=== PATIENT | female | born 1940 | race Caucasian/White ===

== ENCOUNTER → 2017-11-14 11:13 | Outpatient (CLI) | payer MEDICARE, SELFPAY ==
[2017-11-14 12:19] LABS: Absolute Lymphocyte Count 2.37 X10^3/ul (0.83-4.51); Absolute Neutrophil Count 3.5 X10^3/uL (2.0-7.7); Basophil# 0.02 X10^3/uL; Basophil% 0.3 % (0-1); Eosinophil# 0.11 X10^3/uL; Eosinophils% 1.7 % (0-5); Hematocrit 39.5 % (37-47); Hemoglobin 12.8 g/dl (12.0-15.0); Lymphocyte # 2.37 X10^3/ul (4.0); Lymphocyte % 36.9 % (19-41); Mean Corp Hgb Conc 32.4 g/gl (32-36); Mean Corpuscular Hgb 30.1 pg (27.0-32.0); Mean Corpuscular Volume 92.9 fL (81-99); Mean Platelet Vol. 9.6 fl (6.2-12.0); Monocyte# 0.39 X10^3/uL; Monocyte% 6.1 % (0-10); Neutrophil # 3.52 X10^3/uL (2.7-7.7); Neutrophil % 54.8 % (47-70); Platelet Count 208 K/mm3 (150-450); RBC Distribution Width CV 13.3 % (11.6-14.6); RBC Distribution Width SD 44.8 fl (35.1-43.9); Red Blood Count 4.25 M/mm3 (4.2-5.4); White Blood Count 6.4 K/mm3 (4.4-11.0)
[2017-11-14 12:26] LABS: POSITIVE COUNT NO; POSITIVE DIFFERENTIAL NO; POSITIVE MORPHOLOGY NO
[2017-11-19 03:08] LABS: Alternaria tenuis <0.10 kU/L (Class 0); Ash, White <0.10 kU/L (Class 0); Aspergillus fumigatus <0.10 kU/L (Class 0); Bermuda Grass <0.10 kU/L (Class 0); Birch <0.10 kU/L (Class 0); Black Walnut <0.10 kU/L (Class 0); Cat Hair / Dander,Stand <0.10 kU/L (Class 0); Cedar, Mountain <0.10 kU/L (Class 0); Cladosporium herbarum <0.10 kU/L (Class 0); Cockroach, American <0.10 kU/L (Class 0); Cottonwood <0.10 kU/L (Class 0); D farinae Mite <0.10 kU/L (Class 0); D pteronyssinus <0.10 kU/L (Class 0); Dog Epithelia <0.10 kU/L (Class 0); Elm, American White <0.10 kU/L (Class 0); Immunoglobulin E 57 IU/mL (0-100); Maple/Box Elder <0.10 kU/L (Class 0); Mulberry, White <0.10 kU/L (Class 0); Oak, White <0.10 kU/L (Class 0); Pecan <0.10 kU/L (Class 0); Penicillium Notatum <0.10 kU/L (Class 0); Pigweed, Rough <0.10 kU/L (Class 0); Ragweed, Short/Common <0.10 kU/L (Class 0); Russian Thistle <0.10 kU/L (Class 0); Sheep Sorrel <0.10 kU/L (Class 0); Sycamore, American <0.10 kU/L (Class 0); Timothy Grass <0.10 kU/L (Class 0)
[2017-11-19 10:15] LABS: Mouse Urine <0.10 kU/L (Class 0)
== END ==
PROVIDERS: Visit Provider Internal Medicine Critical Care Medicine
DX: J31.0 Chronic rhinitis (principal); J45.909 Unspecified asthma, uncomplicated; Z90.710 Acquired absence of both cervix and uterus
CPT/HCPCS: 36415; 82785; 85025; 86003

== ENCOUNTER → 2017-12-05 10:45 | Outpatient (CLI) | payer MEDICARE, SELFPAY ==
--- NOTE | 2017-12-05 10:45 | DT_ITS ---
This patient was seen during an EMR downtime December 01, 2017 - December 08, 2017. This patient may have a combination of paper and electronic documentation or all paper documentation. All documentation is viewable within the e-chart portion of [facility] for each patient visit.
[2017-12-05 12:18] VITALS: PULSE 74; PULSE 84; PULSE 92; PULSE 95; PULSE 97; O2SAT 97; O2SAT 98
--- NOTE | 2017-12-08 12:05 | PCM.PSN.6M ---
PSN 6 Minute Walk Test - Interpretation Interpretation: The patient ambulated 1062 feet over the course of 6 minutes beginning on room air without assistive devices or breaks. Pretesting oxygen saturation was noted to be 97% on room air. With ambulation, the lay oxygen saturation was 97%. There was no significant exertional oxygen desaturation. - Recommendations Recommendations: There is no indication for the use of supplemental oxygen at this time.
--- NOTE | 2017-12-08 12:20 | CPS ---
Testing done by Radha Cedeño [employer]
== END ==
PROVIDERS: Family Provider Internal Medicine Infectious Disease; PCP Internal Medicine Infectious Disease; Visit Provider Internal Medicine Critical Care Medicine
DX: R05 Cough (principal); J31.0 Chronic rhinitis
CPT/HCPCS: 94618

== ENCOUNTER → 2017-12-23 10:06 | Outpatient (CLI) | payer MEDICARE, SELFPAY ==
--- NOTE | 2017-12-24 05:46 | PFTCOMP ---
COMPLETE PULMONARY FUNCTION TEST INTERPRETATION Brief HPI: Patient is a 77 year old female, currently under the care of Dr. Liang, who presents to [facility] for complete pulmonary function tests secondary to diagnosis of dyspnea and cough. Respiratory therapist reports good effort and reproducible results. Interpretation: Forced expiration spirometry shows no large airways obstructive ventilatory defect with an FEV1 of 106% predicted. There is no significant bronchodilator response by ATS criteria. Spirograms are of good quality and plateau slowly, indicating slowly emptying areas of the lungs. The respiratory flow volume loop shows decreased expiratory flow rates at high lung volumes consistent with small airways obstruction. Lung volumes by body plethysmography show a normal total lung capacity at 4.7 L, 108% predicted. All other lung volumes are within normal limits. Diffusion capacity by carbon monoxide is normal at 83% predicted. The airway resistance is normal. No previous pulmonary function tests were available for review. Impression: These pulmonary function tests are grossly within normal limits. There are some subtle signs of possible small airways disease.
== END ==
PROVIDERS: Family Provider Internal Medicine Infectious Disease; PCP Internal Medicine Infectious Disease; Visit Provider Internal Medicine Critical Care Medicine
DX: J31.0 Chronic rhinitis (principal); R05 Cough
CPT/HCPCS: 94060; 94726; 94729

== ENCOUNTER 2019-03-26 13:30 | Outpatient (RCR) | payer MEDICARE, SELFPAY ==
[2018-10-26 11:12] VITALS: BMI 33.5
--- NOTE | 2019-01-28 11:59 | HP.PTEVAL ---
Patient's Visit Information JULIO SAEED is a 78 year old F referred to Physical Therapy by Davi Haines MD with a diagnosis of Unsteadiness on feet.. Date of Evaluation: 01/28/19 Physical Therapist: Jesus Manuel Saleem DPT, OCS, CSCS - Visit Plan Frequency: 2x /Week Duration: 4-6 Weeks Plan: Neurocom balance assessment per order then. 2x/week for 4-6 weeks for. balance ex likely vestibular in nature and strengthening in gym for patient exit strategy of working out at [employer] where she is a member. Focus on postural , core adn LE musculature. - Subjective Findings: Yancy sent her here because she is having trouble walking straight and standing up safely. People think I have been drinking and I have not. Been this way for years. 4 years ago had gallbladder out and complications in clinic for a long time and confined home since then. Is weak and off balance. Had heartmonitor in the past year and changed meds. Went to [facility] for unsteadiness. Doesn't know why she is unsteady. Had blood work adn BP and sugar. WEnt to ER at that time months ago adn they sent to neuro. BP meds were too high. Last few days has been a little dizzy described as unsteady and sometimes sick to stomach. Had a couple falls in the last year. Usually if she turns too quick. Or walking dog. Has cane and just started with it in case she needs it. Has walker and does not use it. Has some tingly in feet and hands from DM. Spends day sitting as she is very weak. Can go outside for ten minutes but than feels tired. Curling hair makes arms tired. No regular ex. Basic ADLS are slow but OK. Spends day on ipad and TV. No active hobbies. - Pain whole body aches for years. Pain Intensity (Out of 10): 4 Pain Intensity Range: 0, 8 - Objective Walks without AD I but slow today, tends slightly posterior in stance. trasnfers I. Steps reciprocal with one rail. Shows weakness exitting chair. LE strength 4-/5 adn UE 3+ without myotomal problems. reflexes patella and achilles 2/3. Sensation LE and UE WNL to gross light touch. Reciprocal toe and heel taps normal. Flexibility not an issue in LE and LB AROM WFL withotu increased pain today. UE AROM WNL but needs encouragement to reach up . VOR walking is slow but able. - Balance Scores Functional Gait Assessment Score: 23 % Disability: 23.3400 CATSIB Score (Max score 120 seconds): 93 - Goals Goal 1:: Pt I with appropriate HEP to help balance and improve future activities. Goal Time Frame: 4-6 Weeks Goal 2:: FGA to minimize fall risk. Goal Time Frame: 4-6 Weeks Goal 3:: Pt feel 50% increase in energy and able to walk out to barn an pet horse and back to house without fatigue. Goal Time Frame: 4-6 Weeks Goal 4:: Pt able to complete vaccuming without excessive fatigue. Goal Time Frame: 4-6 Weeks - Rehabilitation Potential Physical Therapy Diagnosis: Unsteadiness on feet Rehabilitation Potential: Fair - Anticipated Interventions Patient/Client Instruction: Educate patient on: Condition, Plan of Care, Risk Factors For the Purpose of:: To improve muscle performance and motor function, To increase tolerance to activity/condition/position, To improve endurance Therapeutic Exercise to Include: Strength training, Balance training, Postural training, Gait and locomotor training, via Neurocom Balance Mas For the Purpose of:: To decrease pain, To improve nutrient delivery to tissue, To improve muscle performance and motor function, To increase tolerance to activity/condition/position, To improve ability of physical actions for home/community/work/leisure, To improve balance, To improve safety with gait Thank you for the opportunity to evaluate your patient. For Medicare and Medicare HMO plans, please review the plan of care and approve it. It will need to be FAXED BACK to us at [phone] for Medicare purposes. For Medicare only, by signing this I certify the plan of care. Please let me know if there are questions or concerns regarding this plan of care. Physician Signature: Date:
--- NOTE | 2019-02-11 12:51 | HP.PTCOM ---
PT Communication Note 02/11/[address] Davi Haines MD , Thank you for the referral of Ela to [facility] for balance assessment and treatment. I have enclosed a copy of the results for your review. In summation, she scored slow on the Motor Control Test conssitent with her neuropathy. She scored low on the vestibular portion of the Sensory Organization Test. Regrettably, due to machine failure, I was unable to perform the Limits of Stability test on this date. With these results in mind, I plan to see her 2x/week for 4-6 weeks as allowed by insurance to work on strength and balance exercises adn progress to an independent program. Please do not hesitate to call if there are questions. Sincerely, Jesus Manuel Saleem DPT, OCS, CSCS Contact Information
--- NOTE | 2019-03-05 15:28 | HP.PTREVAL ---
Davi Haines MD, It has been my pleasure to treat JULIO SAEED over the last 7 visits for Unsteadiness on feet.. Please see the progress note below for an update on the physical therapy plan of care! Subjective: Feel better. Stronger and steadier. Turning quick can make feel unsteady but otherwise doing well. No AD needed. No falls. Doing exercises at home at the sink. Vacuuming in spurts but not all at once. Objective/Function: FGA is +3. Trasnfers I with UE. Steps reciprocal with rail needed to descend but not ascend. Balacne appears better adn walks confidently on firm flat surface. Not confident or comfortable yet to cotninue gym ex on her own but has the ability to learn this with further visits. Plan Plan: 2x/week x 4 weeks to progress gym program to I [facility] [employer] program for LE strength, postural strength and balance. Fair prognosis to current adn new goals. Goals Goal 1:: Pt I with appropriate HEP to help balance and improve future activities. Goal Time Frame: 4-6 Weeks Goal Progress: home, not gym Goal 2:: FGA to minimize fall risk. Goal Time Frame: 4-6 Weeks Goal Progress: Goal Met Goal 3:: Pt feel 50% increase in energy and able to walk out to barn an pet horse and back to house without fatigue. Goal Time Frame: 4-6 Weeks Goal Progress: 50% but not horses, appro Goal 4:: Pt able to complete vaccuming without excessive fatigue. Goal Time Frame: 4-6 Weeks Goal Progress: spurts Goal 5:: I appropriate gym program to cotninue progress toward goals and barn activities. Goal Time Frame: 2-4 Weeks Goal Progress: NEW GOAL Anticipated Interventions Patient/Client Instruction: Educate patient on: Condition, Plan of Care, Risk Factors For the Purpose of:: To improve muscle performance and motor function, To increase tolerance to activity/condition/position, To improve endurance Therapeutic Exercise to Include: Strength training, Balance training, Postural training, Gait and locomotor training, via Neurocom Balance Mas For the Purpose of:: To decrease pain, To improve nutrient delivery to tissue, To improve muscle performance and motor function, To increase tolerance to activity/condition/position, To improve ability of physical actions for home/community/work/leisure, To improve balance, To improve safety with gait Please do not hesitate to contact me at [phone] by phone or if you have questions or concerns regarding this new plan of care! Sincerely, Jesus Manuel Saleem, DPT, OCS, CSCS
--- NOTE | 2019-03-26 14:18 | HP.PTREVAL_ITS ---
Davi Haines MD, It has been my pleasure to treat JULIO SAEED over the last 10 visits for Unsteadiness on feet.. Please see the progress note below for an update on the physical therapy plan of care! Subjective: i CAN DO MORE I have good days and bad but feelign stronger overall. back on [employer] which makes her sore. Not sure she could continue herself, feels like she needs more instruction for I with machines, would like to continue to get I with this. Feels like she just needs to be stronger. Objective/Function: Pt has been noncompliant with HEp except steps. Despite this, her hard work has shown a decent improvement to above average in the FGA balance test. She is functional in strength to step up and get out of chair without UE. Needs work to progress back to her usual level which waas above normal according to her. She needs consisteny with ex and wwe decided driving out to all winter is not realistic, she will take list to [facility] near her house and attempt and also givemore emphasis to HEp whcih she needs reinstructed in. Fair prognosis to meet goal #1 again. Plan Plan: 3-4 visits to ensure appropriate progression of HEP to maintain improvements adn continue strength. (foam stance, weight shift, chair squats, step up, bridging, heel raises/toe raises, inchworm, row, and give pics and instructions when I. Goals Goal 1:: Pt I with appropriate HEP to help balance and improve future activities. Goal Time Frame: 4-6 Weeks Goal Progress: noncompliant, uncomfy. Goal 2:: FGA to minimize fall risk. Goal Time Frame: 4-6 Weeks Goal Progress: Goal Met Goal 3:: Pt feel 50% increase in energy and able to walk out to barn an pet horse and back to house without fatigue. Goal Time Frame: 4-6 Weeks Goal Progress: Goal Met Goal 4:: Pt able to complete vaccuming without excessive fatigue. Goal Time Frame: 4-6 Weeks Goal Progress: improving. Goal 5:: I appropriate gym program to cotninue progress toward goals and barn activities. Goal Time Frame: 2-4 Weeks Goal Progress: questionable Anticipated Interventions Patient/Client Instruction: Educate patient on: Condition, Plan of Care, Risk Factors For the Purpose of:: To improve muscle performance and motor function, To increase tolerance to activity/condition/position, To improve endurance Therapeutic Exercise to Include: Strength training, Balance training, Postural training, Gait and locomotor training, via Neurocom Balance Mas For the Purpose of:: To decrease pain, To improve nutrient delivery to tissue, To improve muscle performance and motor function, To increase tolerance to activity/condition/position, To improve ability of physical actions for home/community/work/leisure, To improve balance, To improve safety with gait Please do not hesitate to contact me at [phone] by phone or if you have questions or concerns regarding this new plan of care! Sincerely, Jesus Manuel Saleem, DPT, OCS, CSCS
--- NOTE | 2019-05-17 17:22 | HP.PT.NRP ---
HP - Discharge Summary (1) - Patient Information JULIO SAEED was seen in my office for initial evaluation on 01/28/19. The following Plan of Care was established for this patient: Initial Frequency: 2x /Week Initial Duration: 4-6 Weeks - Anticipated Interventions Patient/Client Instruction: Educate patient on: Condition, Plan of Care, Risk Factors For the Purpose of:: To improve muscle performance and motor function, To increase tolerance to activity/condition/position, To improve endurance Therapeutic Exercise to Include: Strength training, Balance training, Postural training, Gait and locomotor training, via Neurocom Balance Mas For the Purpose of:: To decrease pain, To improve nutrient delivery to tissue, To improve muscle performance and motor function, To increase tolerance to activity/condition/position, To improve ability of physical actions for home/community/work/leisure, To improve balance, To improve safety with gait This patient was last seen in our office 03/26/19. Pertinent comments regarding their Physical therapy will appear below: Pt seen 10 visits of POC adn plan was to continue but did nto attend or schedule further visits. will discontinue due to nonattendance. At this point I will be discontinuing this patient from physical therapy. I would be happy to see this patient again in the future if found appropriate by the physician. Thank you! Jesus Manuel Saleem, DPT, OCS, CSCS
== END 2019-03-26 19:00 | disposition home or self-care (01) ==
LOC: PT 13:30
PROVIDERS: Family Provider Internal Medicine; PCP Internal Medicine; Referring Provider Psychiatry & Neurology Neurology; Visit Provider Psychiatry & Neurology Neurology
DX: R26.81 Unsteadiness on feet (principal)
CPT/HCPCS: 97110; 97162; 97164; 97530; 97750

== ENCOUNTER → 2019-11-16 13:27 | Outpatient (CLI) | payer MEDICARE, SELFPAY ==
[2019-03-31 06:28] VITALS: BMI 35.4
[2019-11-16 13:52] LABS: Absolute Lymphocyte Count 2.34 X10^3/uL (0.83-4.51); Absolute Neutrophil Count 5.3 X10^3/uL (2.0-7.7); Basophil# 0.03 X10^3/uL; Basophil% 0.4 % (0-1); Eosinophil# 0.07 X10^3/uL; Eosinophils% 0.8 % (0-5); Hematocrit 44.9 % (37-47); Hemoglobin 14.5 g/dL (12.0-15.0); Lymphocyte # 2.34 X10^3/ul (4.0); Lymphocyte % 28.3 % (19-41); Mean Corp Hgb Conc 32.3 g/dL (32-36); Mean Corpuscular Hgb 31.5 pg (27.0-32.0); Mean Corpuscular Volume 97.4 fL (81-99); Mean Platelet Vol. 9.5 fl (6.2-12.0); Monocyte# 0.51 X10^3/uL; Monocyte% 6.2 % (0-10); NRBC Flagged by Analyzer 0 % (0-5); Neutrophil % 63.9 % (47-70); Platelet Count 200 K/mm3 (150-450); RBC Distribution Width SD 46.2 fl (35.1-43.9); Red Blood Count 4.61 M/mm3 (4.2-5.4); White Blood Count 8.3 K/mm3 (4.4-11.0)
[2019-11-19 16:07] LABS: Alternaria alternata <0.10 kU/L (Class 0); Bermuda Grass <0.10 kU/L (Class 0); Bluegrass, Kentucky <0.10 kU/L (Class 0); Cat Hair/Dander, Standard <0.10 kU/L (Class 0); D farinae Mite <0.10 kU/L (Class 0); D pteronyssinus <0.10 kU/L (Class 0); Dog Epithelia <0.10 kU/L (Class 0); Elm, American White <0.10 kU/L (Class 0); Oak, White <0.10 kU/L (Class 0); Plantain, English <0.10 kU/L (Class 0); Ragweed, Short/Common <0.10 kU/L (Class 0)
[2019-11-19 18:47] LABS: Mouse Urine <0.10 kU/L (Class 0)
[2019-11-20 20:07] LABS: Aspirgillus flavus Negative (Neg:<1:1); Aspirgillus fumigatus Negative (Neg:<1:1); Aspirgillus niger Negative (Neg:<1:1)
[2019-11-21 00:59] LABS: Immunoglobulin E 47 IU/mL (6-495)
== END ==
PROVIDERS: PCP Internal Medicine; Referring Provider Nurse Practitioner Acute Care; Visit Provider Nurse Practitioner Acute Care
DX: J45.909 Unspecified asthma, uncomplicated (principal); K22.70 Barrett's esophagus without dysplasia
CPT/HCPCS: 36415; 82785; 85025; 86003; 86606

== ENCOUNTER → 2021-02-05 13:00 | Outpatient (CLI) | payer MEDICARE, SELFPAY | PROVIDERS: PCP Internal Medicine; Referring Provider Internal Medicine Critical Care Medicine; Visit Provider Internal Medicine Critical Care Medicine | DX: G47.33 Obstructive sleep apnea (adult) (pediatric) (principal) | CPT/HCPCS: 98960; G0463 ==

== ENCOUNTER → 2021-02-15 12:52 | Outpatient (CLI) | payer MEDICARE, SELFPAY ==
--- NOTE | 2021-02-15 14:30 | PFTCOMP_ITS ---
COMPLETE PULMONARY FUNCTION TEST INTERPRETATION Brief HPI: Patient is a 80 year old female, currently under the care of Dr. Liang, who presents to [facility] for complete pulmonary function tests secondary to diagnosis of sleep apnea. Respiratory therapist reports good effort and reproducible results. Interpretation: Forced expiration spirometry shows no large airways obstructive ventilatory defect with an FEV1 of 108% predicted. There is no significant bronchodilator response by strict ATS criteria. Spirograms are of good quality and plateau normally. The respiratory flow volume loop shows a normal pattern. Lung volumes by body plethysmography show a normal total lung capacity at 4.75 L, 104% predicted. All other lung volumes are within normal limits. Diffusion capacity by carbon monoxide is elevated at 178% predicted. The airway resistance is elevated. Compared to previous pulmonary function tests from 12/23/2017, there has been no significant change. Impression: Grossly normal pulmonary function testing with no change compared to 2018.
== END ==
PROVIDERS: PCP Internal Medicine; Referring Provider Internal Medicine Critical Care Medicine; Visit Provider Internal Medicine Critical Care Medicine
DX: J45.40 Moderate persistent asthma, uncomplicated (principal)
CPT/HCPCS: 94060; 94726; 94729

== ENCOUNTER → 2021-02-20 13:49 | Outpatient (CLI) | payer MEDICARE, SELFPAY ==
[2021-02-20 14:09] VITALS: PULSE 78; PULSE 84; PULSE 85; PULSE 89; PULSE 94; PULSE 96; O2SAT 95; O2SAT 96; O2SAT 97; O2SAT 98
--- NOTE | 2021-02-21 14:06 | PCM.PSN.6M ---
PSN 6 Minute Walk Test 6 Minute Walk Test 6 Minute Walk Test: 6 Minute Walk Test PSN:6-Minute Walk Test Start: 02/20/21 14:08 Freq: Status: Active Protocol: RESP.6MINW Document 02/20/21 14:09 JHONNY (Rec: 02/20/21 14:11 JHONNY [id number]) 6 Minute Walk Test Date Performed 02/20/21 Time Performed 13:45 Height 5 ft 2 in Weight: 88.853 kg Weight in Pounds 195.[address]: Luis Liang Assistive device used: None Pre-test Oxygen Delivery Method Room Air Pulse Ox (%) 96 Pulse Rate (60-100 beats/min) 78 Dyspnea Armin Scale (0-10) 3 Exertion Armin Scale (6-20) 6 1st minute Oxygen Delivery Method Room Air Pulse Ox (%) 95 Pulse Rate (60-100 beats/min) 85 2nd minute Oxygen Delivery Method Room Air Pulse Ox (%) 96 Pulse Rate (60-100 beats/min) 89 3rd minute Oxygen Delivery Method Nasal Cannula Pulse Ox (%) 95 Pulse Rate (60-100 beats/min) 94 4th minute Oxygen Delivery Method Room Air Pulse Ox (%) 97 Pulse Rate (60-100 beats/min) 96 5th minute Oxygen Delivery Method Room Air Pulse Ox (%) 98 Pulse Rate (60-100 beats/min) 96 6th minute Oxygen Delivery Method Room Air Pulse Ox (%) 96 Pulse Rate (60-100 beats/min) 94 Dyspnea Armin Scale (0-10) 4 Exertion Armin Scale (6-20) 12 Post-test Oxygen Delivery Method Room Air Pulse Ox (%) 97 Pulse Rate (60-100 beats/min) 84 Full Laps Walked 18 Partial Lap, Number of Tiles Walked 50 Total Distance Walked (ft) 1112 Interpretation Interpretation: The patient ambulated 1112 feet over the course of 6 minutes beginning on room air without assistive devices. Pretesting oxygen saturation was noted to be 96% on room air. With ambulation, the lay oxygen saturation was 95%. There was no significant exertional oxygen desaturation. Recommendations Recommendations: There is no indication for the use of supplemental oxygen at this time.
== END ==
PROVIDERS: PCP Internal Medicine; Referring Provider Internal Medicine Critical Care Medicine; Visit Provider Internal Medicine Critical Care Medicine
DX: J45.40 Moderate persistent asthma, uncomplicated (principal)
CPT/HCPCS: 94618

== ENCOUNTER → 2025-01-27 | Outpatient (CLI) | payer MEDICARE, SELFPAY ==
--- NOTE | 2025-01-27 12:54 | ECHOD_ITS ---
Reason For Study Reason For Study: AFib Procedure This was a 2D Doppler, Color Flow transthoracic echocardiogram. The study was technically difficult. Exam performed in department. Left Ventricle Normal LV size. The left ventricular ejection fraction is 65 %. Stage 1 diastolic dysfunction. No regional wall motion abnormalities noted. Right Ventricle Normal RV size. Normal systolic function. Atria Normal left atrium. Normal right atrium. Mitral Valve Normal mitral valve. Tricuspid Valve Normal tricuspid valve. Mild tricuspid valve insufficiency. Aortic Valve The aortic valve is not well visualized. Pulmonic Valve The pulmonic valve is not well visualized. Great Vessels Normal aortic root. The pulmonary artery is normal size. Inferior vena cava collapse with respiration. Pericardium/Pleural No pericardial effusion. MMode/2D Measurements & Calculations RVDd: 3.2 cm Ao root diam: 3.3 cm LAV(MOD-sp2): 38.9 ml LVAd ap4: 18.0 cm2 SV(MOD-sp4): 21.5 ml SV(sp4-el): 24.8 ml LVLd ap4: 7.4 cm SI(MOD-sp4): 11.9 ml/m2 EDV(MOD-sp4): 35.5 ml EDV(sp4-el): 37.2 ml LVAs ap4: 9.7 cm2 LVLs ap4: 6.5 cm ESV(MOD-sp4): 14.0 ml ESV(sp4-el): 12.4 ml EF(MOD-sp4): 60.5 % EF(sp4-el): 66.8 % LA dimension(2D): 3.6 cm TAPSE: 1.7 cm Time Measurements MV dec time: 0.43 sec Doppler Measurements & Calculations MV E max ronadl: 32.2 cm/sec Lat Peak E' Ronald: 5.7 cm/sec Med Peak E' Ronald: 7.6 cm/sec MV A max ronald: 76.3 cm/sec E/E' lat: 5.6 E/E' med: 4.2 MV E/A: 0.42 MV V2 max: 89.3 cm/sec MV P1/2t max ronald: 37.9 cm/sec Ao V2 max: 87.3 cm/sec MV max P.2 mmHg MV P1/2t: 115.4 msec Ao max P.0 mmHg MV V2 mean: 38.1 cm/sec MV dec slope: 96.0 cm/sec2 Ao V2 mean: 60.2 cm/sec MV mean P.74 mmHg Ao mean P.7 mmHg MV V2 VTI: 17.6 cm MVA(P1/2t): 1.9 cm2 Ao V2 VTI: 18.5 cm AV (velocity ratio): 0.87 LV V1 max: 86.7 cm/sec PA V2 max: 101.6 cm/sec TR max ronald: 212.5 cm/sec LV V1 max P.0 mmHg PA V2 mean: 67.7 cm/sec TR max P.1 mmHg LV V1 mean P.6 mmHg LV V1 mean: 58.8 cm/sec LV V1 VTI: 16.0 cm ECHO/Echo Complete Interpretation Summary Normal LV size. The left ventricular ejection fraction is 65 %. Stage 1 diastolic dysfunction. The study was technically difficult. The study was technically limited. Ordering Physician: Eliazar Fischer Referring Physician: Eliazar Fischer Performed By: Jadiel Jacinto RCS
--- OUTSIDE RECORDS SUMMARY | 2025-01-27 21:32 | XMS RPT_ITS | CCD ---
Author Organization [facility] Care Team Providers Care Software Publisher Name Role Phone Mela Doss Unavailable Unavailable Ketty Moon Unavailable Unavailable Gordo Cooper MD Primary Care Provider [phone] Gordo Cooper MD Primary Care Provider Gordo Cooper MD Primary Care Provider RELL NASH Attending Unavailable ALLISON, GORDO Primary Care Unavailable DR GORDO COOPER MD Primary Care Unavailable DOMINGO APRN_CNP, JAMEY Attending Unavailshelia e DOMINGO APRN_CNP, JAMEY Attending UnavailDR GORDO Lopez MD Primary Care Unavailable BETTY MURGUIA DO Attending Unavailable GORDO COOPER MD Consulting Unavailable GORDO COOPER MD Referring Unavailable BETTY MURGUIA DO Admitting Unavailable BETTY MURGUIA DO Primary Care Unavailable PROVIDER, UNKNOWN Consulting Unavailable PROVIDER, UNKNOWN Consulting Unavailable PROVIDER, UNKNOWN Consulting Unavailable GORDO COOPER MD Primary Care Unavailable LATOGRDO PEREZ MD Attending Unavailable GORDO COOPER MD Admitting Unavailable GORDO COOPER MD Primary Care Unavailable GORDO COOPER MD Consulting Unavailable LATGORDO PEREZ MD Attending Unavailable LATOUGORDO Coleman MD Admitting Unavailable PROVIDER, UNKNOWN Consulting Unavailable PROVIDER, UNKNOWN Consulting Unavailable PROVIDER, UNKNOWN Consulting Unavailable Dr. Gordo Cooper MD Primary Care Provider Dr. Gordo Cooper MD Referring Provider [phone] Tiki Enciso Attending Provider Dr. Eliazar Fischer MD Attending Provider [phone] Gordo Cooper Referring Unavailable Eliazar Fischer Attending Unavailable AlexfGordo Primary Care Unavailable Latouf, Butros Referring Unavailable Jennyfer Vidal NP Attending Unavailable Latouf, Butros Primary Care Unavailable Catrachito Reid Attending Unavailable Latouf, Butros Referring Unavailable Eliazar Fischer Attending Unavailable AmadoEliazar Referring Unavailable Latouf, Butros Referring Unavailable Tiki Harris Attending Unavailable Latouf, Butros Primary Care Unavailable Allison BLISS, Dr. Tabares Primary Care Provider Allison BLISS, Dr. Tabares Referring Provider Amado BLISS, Dr. Perea Referring Provider [phone] Lucho BLISS, Dr. Quigley Primary Care Provider King IZAIAH, Dr. Winston Attending Provider [phone] Allergies Allergy Classification Reported Allergen(s) Allergy Type Date of Onset Reaction(s) Facility (13 sources) Acetaminophen / HYDROcodone; Translations: [HYDROCODONE-ACET AMINOPHEN] Drug Allergy 0 Vomiting [facility] Work Phone: (15 sources) Amoxicillin; Translations: [AMOXICILLIN] Drug Allergy 0 GI Upset [facility] (15 sources) Codeine; Translations: [CODEINE] Drug Allergy 6 Mental Status Change [facility] (15 sources) Doxycycline; Translations: [DOXYCYCLINE] Drug Allergy 2 Unknown [facility] (2 sources) HMG-CoA reductase inhibitor; Translations: [VXHZECN-OEF-BMM REDUCTASE INHIBITORS] Drug Allergy 0 Unknown [facility] (13 sources) Meperidine; Translations: [MEPERIDINE HCL] Drug Allergy 0 Unknown [facility] (15 sources) Morphine; Translations: [MORPHINE] Drug Allergy 6 Intolerance [facility] Work Phone: (13 sources) traMADol; Translations: [TRAMADOL HCL] Drug Allergy 0 Unknown [facility] (11 sources) HMG-CoA reductase inhibitor Drug Allergy 0 Unknown [facility] (1 source) Acetaminophen / HYDROcodone Drug Allergy [facility] (1 source) Amoxicillin Drug Allergy [facility] (1 source) Ciprofloxacin Drug Allergy [facility] (1 source) Codeine Drug Allergy [facility] (1 source) Doxycycline Drug Allergy [facility] (1 source) Hmg-Coa Reductase Inhibitors (Statins) Drug allergy (disorder) [facility] Repository (1 source) levoFLOXacin Drug Allergy [facility] Rep[facility] (1 source) Morphine Drug Allergy [facility] (1 source) traMADol Drug Allergy [facility] Rep[facility] (2 sources) Acetaminophen Drug Allergy 5 Unknown [facility] (2 sources) HYDROcodone Drug Allergy 5 Unknown [facility] (2 sources) levoFLOXacin Drug Allergy 5 Pain in joints [facility] (2 sources) Mowukpl-Rqw-Lfm Reductase Inhibitor Propensity to adverse reactions 5 Pain in joints [facility] (1 source) Acetaminophen Drug Allergy 5 [facility] (1 source) Amoxicillin Drug Allergy 5 [facility] (1 source) Codeine Drug Allergy 5 [facility] (1 source) Doxycycline Drug Allergy 5 [facility] (1 source) HYDROcodone Drug Allergy 5 [facility] (1 source) levoFLOXacin Drug Allergy 5 [facility] (1 source) Morphine Drug Allergy 5 [facility] Rep[facility] (1 source) Rjozlmj-Ici-Kjg Reductase Inhibitor Drug allergy (disorder) 5 [facility] Repository Medications Current Medications Medication Drug Class(es) Dates Sig (Normalized) Sig (Original) 200 actuat albuterol 0.09 mg/actuat dry powder inhaler (20 sources) beta2-Adrenergic Agonist Start: 04-08-2024 take 2 puff(s) by inhalation every four hours as needed for wheezing ProAir RespiClick 90 mcg/actuation breath activated Inhale 2 Puffs as instructed every 4 hours as needed for wheezing/shortnes s of breath. 04/08/2024 Active Start: 04-05-2024 take 90 ug by inhala tion every four hours as needed Albuterol Sulfate (Proair Respiclick) 90 mcg/actuation aerosol powdr breath activated Active 2 NMA INHALATION Q4H as needed for shortness of breath or wheezing 07 05April 05, 2024 12:00am Asthma Moderate persistent asthma, uncomplicated administer with spacer Start: 05-11-2019 End: 04-05-2024 Albuterol Sulfate (Ventolin Hfa) 90 mcg/actuation HFA aerosol inhaler Discontinued 2 NMA INHALATION Q4H as needed for shortness of breath or wheezing 15 12August 06, 2019 5:27pm February 10, 2020 11:15am Start: 02-19-2018 End: 05-11-2019 Albuterol Sulfate (Ventolin Hfa) 90 mcg/actuation HFA aerosol inhaler Discontinued 2 NMA INHALATION Q4H as needed February 19, 2018 12:00am May 11, 2019 3:49pm Start: 01-14-2018 End: 02-19-2018 Albuterol Sulfate (Proair Hf a) 90 mcg/actuation HFA aerosol inhaler Discontinued 2 NMA INHALATION Q4H as needed for shortness of breath or wheezing 15 12January 14, 2018 9:51am February 19, 2018 1:12pm Start: 11-11-2017 End: 01-14-2018 Albuterol Sulfate (Proair Hf a) 90 mcg/actuation HFA aerosol inhaler Discontinued 2 NMA INHALATION Q4H as needed November 11, 2017 12:00am January 14, 2018 9:53am Start: 06-01-2010 End: 04-16-2024 take 2 puff(s) by inhalation every four to six hours as needed albuterol HFA (PROVENTIL HFA, VENTOLIN HFA) 90 mcg/actuation inhaler two puffs every 4-6 hours as needed 0 06/01/2010 04/16/2024 Discontinued (Dosage adjustment) Comment on above: two puffs every 4-6 hours as needed albuterol 0.833 mg/ml / ipratropium bromide 0.167 mg/ml inhalation solution (2 sources) Anticholinergic, beta2-Adrenergic Agonist Start: take 1 mL by inhalation every four hours as needed for wheezing Ipratropium-Albutero l 0.5 mg-3 mg(2.5 mg base)/3 mL solution for nebulization Active 3 mL INHALATION EVERY 4 HOURS NEEDED as needed for SOB &/OR WHEEZING 180 October 024 12:00am Asthma Unspecified asthma, uncomplicated ALPRAZolam 0.5 mg oral tablet (18 sources) Benzodiazepine Start: take 1 tablet by mouth twice daily Alprazolam 0.5 mg tablet Active 0.5 mg PO TWICE A DAY December 22, 2024 2:28pm Start: 11-24-2024 End: 12-22-2024 take 1 tablet by mouth three times daily as needed Alprazolam 0.5 mg tablet Discontinued 0.5 mg PO THREE TIMES A DAY as needed November 24, 2024 12:00am December 22, 2024 2:32pm Start: 03-31-2019 End: 11-24-2024 take 1 tablet by mouth three times daily as needed for anxiety Alprazolam 1 mg tablet Discontinued 1 mg PO THREE TIMES A DAY as needed for anxiety March 31, 2019 12:00am November 24, 2024 2:14pm take 0.25 mg by mout h every eight hours as needed ALPRAZolam (XANAX) 0.5 mg tablet Take 0.25 mg by mouth three times daily as needed. Active Comment on above: Take 0.25 mg by mout h three times daily as needed. amLODIPine 5 mg oral tablet (18 sources) Dihydropyridine Calcium Channel Paxton Start: take 1 tablet by mouth once daily Amlodipine 5 mg tablet Active 5 mg PO DAILY December 22, 2024 2:27pm Start: 11-16-2019 End: 12-22-2024 take 2 tablets by mouth once daily Amlodipine 5 mg tablet Discontinued 10 mg PO DAILY November 16, 2019 12:40pm December 22, 2024 2:32pm Start: 02-19-2018 End: 11-16-2019 take 1 tablet by mouth once daily Amlodipine 5 mg tablet Discontinued 5 mg PO DAILY February 19, 2018 12:00am November 16, 2019 12:41pm take 5 mg by mouth once daily am LODIPine (NORVASC) 10 mg tablet Take 5 mg by mouth once daily. Active take 1 tablet by oskar th once daily amLODIPine (NORVASC) 10 mg tablet Take 10 mg by mouth once daily. 0 Active Comment on above: Take 10 mg by mouth once daily. Takes 5 or 10mg saeed y depending on BP Bifidobacterium Infantis (12 sources) Bifidobacterium infantis (ALIGN ORAL) Take by mouth once daily. Active Bifidobacterium infantis (ALIGN ORAL) Take by mouth once daily. 0 Active Comment on above: Take by mouth once d aily. cholecalciferol 0.05 mg oral capsule (14 sources) Vitamin D Start: 11-25-19 take 1 capsule by mouth once daily Cholecalciferol (Vitamin D3) 50 mcg (2,000 unit) capsule Active 50 ug PO daily November 24, 2024 12:00am take 1 tablet by mouth once saeed y cholecalciferol (VITAMIN D3) 400 unit tab Take 400 Units by mouth once daily. Active Comment on above: Take 400 Units by [facility] once daily. Evolocumab (Repatha Sureclick) 140 mg/mL pen injector (1 source) Start: 01-27-2025 Evolocumab (Repatha Sureclick) 140 mg/mL pen injector Active 140 mg SC every 2 weeks 2 January 27, 2025 12:00am 30 actuat fluticasone furoate 0.2 mg/actuat / vilanterol 0.025 mg/actuat dry powder inhaler (6 sources) Corticosteroid, beta2-Adrenergic Agonist Start: 04-05-2024 Fluticasone Furoate-Vilanterol (Breo Ellipta) 200-25 mcg/dose blister with device Active 1 NMA INHALATION daily 60 April 05, 2024 12:00am Asthma Moderate persistent asthma, uncomplicated after inhalation, rinse mouth with water and spit out Start: 01-14-2018 End: 01-21-2020 Fluticasone Furoate-Vilanter ol (Breo Ellipta) 200-25 mcg/dose blister with device Discontinued 1 NMA INHALATION daily 60 January 14, 2018 9:50am January 21, 2020 3:05pm Start: 01-14-2018 End: 01-21-2020 Fluticasone Furoate-Vilanter ol (Breo Ellipta) 200-25 mcg/dose blister with device Discontinued 1 NMA INHALATION daily 60 January 14, 2018 9:50am January 21, 2020 3:05pm Start: 01-14-2018 End: 01-14-2018 Fluticasone Furoate-Vilanter ol (Breo Ellipta) 200-25 mcg/dose blister with device Discontinued 1 NMA INHALATION daily January 14, 2018 12:00am January 14, 2018 9:53am glipiZIDE 5 mg oral tablet (5 sources) Sulfonylurea Start: 01-27-2025 take 1 tablet by mouth twice daily Glipizide 5 mg tablet Active 5 mg PO TWICE A DAY 180 1 January 27, 2025 2:59pm Start: 11-24-2024 End: 01-27-2025 take 2.5 mg by mouth twice daily Glipizide 5 mg tablet Discontinued 2.5 mg PO TWICE A DAY November 24, 2024 2:17pm January 27, 2025 2:59pm Start: 05-11-2021 End: 11-24-2024 take 1 tablet by mouth twice daily Glipizide 5 mg tablet Discontinued 5 mg PO TWICE A DAY May 11, 2021 1:00am November 24, 2024 2:19pm hyoscyamine sulfate 0.125 mg sublingual tablet (2 sources) Start: 12-22-2024 take 1 tablet under the tongue every six hours as needed Hyoscyamine Sulfate 0.125 mg tablet, sublingual Active 0.125 mg SL EVERY 6 HOURS as needed December 22, 2024 12:00am Lactobac no.41/Bifidobact no.7 (PROBIOTIC-10 ORAL) (12 sources) Lactobac no.41/Bifidobact no.7 (PROBIOTIC-10 ORAL) Take by mouth. sometimes Active Lactobac no.41/B ifidobact no.7 (PROBIOTIC-10 ORAL) Take by mouth. sometimes 0 Active Comment on above: Take by mouth. somet regi lansoprazole 30 mg delayed release oral capsule (14 sources) Proton Pump Inhibitor Start: 8 take 1 capsule by mouth once daily Lansoprazole (Prevacid) 30 mg capsule,delayed release(DR/EC) Active 30 mg PO daily November 11, 2017 12:00am Comment on above: Take 30 mg by mouth once daily. levothyroxine sodium 0.088 mg oral tablet (20 sources) l-Thyroxine Start: End: 5 take 1 tablet by mouth once daily Levothyroxine 88 mcg tablet Active 88 ug PO DAILY 90 3 January 27, 2025 3:00pm Start: 09-08-2024 End: 12-22-2024 Levothyroxine 88 mcg tablet Discontinued ug PO DAILY September 08, 2024 12:00am December 22, 2024 2:32pm Start: 03-25-2024 take 1 tablet by oskar th once daily in the morning levothyroxine (SYNTHROID) 88 mcg tablet Take 88 mcg by mouth every morning. 03/25/2024 Active Start: 11-11-2017 End: 09-08-2024 take 1 capsule by mouth once daily Levothyroxine 112 mcg capsule Discontinued 112 ug PO daily November 11, 2017 12:00am September 08, 2024 1:51pm Start: 07-11-2014 End: 04-16-2024 take 1 tablet by mouth once daily levothyroxine (SYNTHROID) 100 mcg tablet Take 1 tablet by mouth once daily. 30 tablet 0 07/11/2014 04/16/2024 Discontinued (Dosage adjustment) Comment on above: Take 1 tablet by oskar th once daily. linaclotide 0.145 mg oral capsule (15 sources) Guanylate Cyclase-C Agonist Start: take 1 capsule by mouth once daily Linaclotide (Linzess) 145 mcg capsule Active 145 ug PO DAILY May 11, 2021 1:00am End: 04-16-2024 take 1 capsule by mouth once daily linaCLOtide (LINZESS) 72 mcg capsule Take 1 capsule by mouth once daily. Administer on an empty stomach. Swallow whole; DO NOT crush or chew. 04/16/2024 Discontinued (Dosage adjustment) Comment on above: Take 1 capsule by mo [facility] once daily. Administer on an empty stomach. Swallow whole; DO NOT crush or chew. losartan potassium 50 mg oral tablet (15 sources) Angiotensin 2 Receptor Paxton Start: 12-22-2024 take 1 tablet by mouth once daily Losartan 50 mg tablet Active 50 mg PO daily 90 3 December 22, 2024 3:10pm Start: 09-08-2024 End: 12-22-2024 take 1 tablet by mouth once daily Losartan 25 mg tablet Discontinued 25 mg PO daily September 08, 2024 12:00am December 22, 2024 3:12pm take 1 tablet by oskar th once daily losartan (COZAAR) 25 mg tablet Take 25 mg by mouth once daily. Active Comment on above: Take 25 mg by mouth once daily. magnesium oxide 400 mg oral tablet (14 sources) Start: 11-24-2024 take 1 tablet by mouth twice daily Magnesium Oxide 400 mg magnesium tablet Active 400 mg PO TWICE A DAY November 24, 2024 12:00am take 1 tablet by mouth twice rafat ly magnesium oxide (MAG-OX) 400 mg (241.3 mg magnesium) tablet Take 400 mg by mouth twice daily. Active Comment on above: Take 400 mg by mouth twice daily. 24 hr metoprolol succinate 25 mg extended release oral tablet (1 source) beta-Adrenergic Paxton Start: 12-22-2024 take 1 tablet by mouth once daily Metoprolol Succinate (Toprol Xl) 25 mg tablet extended release 24 hr Active 25 mg PO daily 90 3 December 22, 2024 12:00am 24 hr mirabegron 50 mg extended release oral tablet (6 sources) beta3-Adrenergic Agonist Start: 09-08-2024 take 1 tablet by mouth once daily Mirabegron 50 mg tablet extended release 24 hr Active 50 mg PO daily September 08, 2024 12:00am Start: 07-21-2023 take 1 tablet by oskar once daily mirabegron (MYRBETRIQ) 50 mg Tb24 Indications: Urge incontinence Take 1 tablet by mouth once daily. 30 tablet 11 07/21/2023 Active Nebulizer machine (2 sources) Start: 10-03-2023 Nebulizer mach ine Active 0 .ROUTE .MEDSUPPLY 1 0 October 03, 2023 12:00am Asthma Unspecified asthma, uncomplicated As directed Start: 10-03-2023 Nebulizer mach ine Active 0 .ROUTE .MEDSUPPLY 1 October 03, 2023 12:00am As directed perflutren lipid microspheres 1.3 mL in NaCl (PF) 0.9% 10 mL injection (DEFINITY) (7 sources) Start: 12-06-2022 End: 03-06-2024 perflutren lipid microspheres 1.3 mL in NaCl (PF) 0.9% 10 mL injection (DEFINITY) red yeast/Q10/om3/dha/ep a/fish (RED OMEGA ORAL) (2 sources) take 1 tablet by mouth once daily red yeast/Q10/om3/dha/e pa/fish (RED OMEGA ORAL) Take 1 tablet by mouth once daily. Active rivaroxaban 20 mg oral tablet (15 sources) Factor Xa Inhibitor Start: 07-22-2023 End: 04-16-2024 take 1 tablet by mouth once daily Rivaroxaban (Xarelto) 20 mg tablet Active 20 mg PO daily April 05, 2024 12:00am Start: 12-11-2022 take 1 tablet by oskar th once daily at dinner rivaroxaban (XARELTO) 20 mg tablet Indications: New onset a-fib (HCC) Take 1 tablet by mouth daily with dinner. 30 tablet 5 12/11/2022 Active Comment on above: Take 1 tablet by oskar th daily with dinner. sertraline 100 mg oral tablet (16 sources) Serotonin Reuptake Inhibitor Start: 09-08-2024 take 1 tablet by mouth once daily Sertraline 100 mg tablet Active 100 mg PO DAILY September 08, 2024 12:00am Start: 05-11-2021 End: 09-08-2024 take 20 mg by mouth once daily Sertraline (Zoloft) 20 mg/mL concentrate Discontinued 20 mg PO DAILY May 11, 2021 1:00am September 08, 2024 1:48pm take 1 tablet by oskar th once daily sertraline (ZOLOFT) 50 mg tablet Take 50 mg by mouth once daily. Active Comment on above: Take 50 mg by mouth once daily. 125 ml sodium chloride 9 mg/ml prefilled syringe (7 sources) Start: 12-06-2022 End: 03-06-2024 sodium chloride 0.9 % (flush) 10 mL (BD POSIFLUSH) topiramate 25 mg oral tablet (9 sources) Start: 12-22-2024 take 1 tablet by mouth twice daily Topiramate 25 mg tablet Active 25 mg PO TWICE A DAY December 22, 2024 2:28pm Start: 11-24-2024 End: 12-22-2024 take 1 tablet by mouth once daily Topiramate 25 mg tablet Discontinued 25 mg PO daily November 24, 2024 2:18pm December 22, 2024 2:32pm Start: 09-08-2024 End: 11-24-2024 Topiramate 25 mg tablet Disc ontinued mg PO September 08, 2024 12:00am November 24, 2024 2:19pm Start: 11-11-2017 End: 09-08-2024 take 1 tablet by mouth twice daily Topiramate 100 mg tablet Discontinued 100 mg PO TWICE A DAY November 11, 2017 12:00am September 08, 2024 1:52pm End: 11-16-2021 TOPIRAMATE (TOPAMAX ORAL) Ta ke by mouth. 0 11/16/2021 Discontinued Comment on above: Take by mouth. traMADol hydrochloride 50 mg oral tablet (4 sources) Opioid Agonist Start: 12-22-2024 Tramadol 50 mg tablet Active 25 mg PO TWICE A DAY as needed December 22, 2024 2:29pm Start: 09-08-2024 End: 12-22-2024 take 1 tablet by mouth twice daily as needed Tramadol 50 mg tablet Discontinued 50 mg PO TWICE A DAY as needed September 08, 2024 12:00am December 22, 2024 2:32pm ubidecarenone 200 mg oral capsule (2 sources) Start: 11-24-2024 Coenzyme Q10 ( Co Q-10) 200 mg capsule Active 200 mg PO daily November 24, 2024 12:00am ubidecarenone (CO Q-10 ORAL) (2 sources) take 1 tablet by mouth once daily ubidecarenone (CO Q-10 ORAL) Take 1 tablet by mouth once daily. Active VITAMIN B COMPLEX ORAL (2 sources) take 1 tablet by mouth once daily VITAMIN B COMPLEX ORAL Take 1 tablet by mouth once daily. Active Vitamin B Complex tablet (2 sources) Start: 11-24-2024 Vitamin B Comp saad tablet Active 1 {tbl} PO daily November 24, 2024 12:00am vitamin b12 1 mg oral tablet (2 sources) Vitamin B12 take 1 tablet by mouth once daily cyanocobalamin (VITAMIN B-12) 1,000 mcg tab Take 1,000 mcg by mouth once daily. Active Completed/Discontinued Medications Medication Drug Class(es) Dates Sig (Normalized) Sig (Original) aspirin 81 mg delayed release oral tablet (11 sources) Platelet Aggregation Inhibitor, Nonsteroidal Anti-inflammatory Drug End: 04-16-2024 take 1 tablet by mouth once daily aspirin, enteric coated (ASPIRIN, ENTERIC COATED) 81 mg EC tablet Take 81 mg by mouth once daily. 04/16/2024 Discontinued Comment on above: Take 81 mg by mouth once daily. atenolol 25 mg oral tablet (18 sources) beta-Adrenergic Paxton Start: 09-08-2024 End: 12-22-2024 take 1 tablet by mouth once daily Atenolol 25 mg tablet Discontinued 25 mg PO daily September 08, 2024 12:00am December 22, 2024 3:10pm Start: 10-06-2019 take 1 tablet by oskar th once daily atenolol (TENORMIN) 25 mg tablet Take 1 tablet by mouth once daily 90 tablet 3 10/06/2019 Active Start: 02-19-2018 End: 09-08-2024 take 1 tablet by mouth once daily Atenolol 100 mg tablet Discontinued 100 mg PO DAILY February 19, 2018 12:00am September 08, 2024 1:49pm Start: 11-11-2017 End: 02-19-2018 take 1 tablet by mouth once daily Atenolol 50 mg tablet Discontinued 50 mg PO daily November 11, 2017 12:00am February 19, 2018 1:16pm Comment on above: Take 1 tablet by oskar th once daily atorvastatin 40 mg oral tablet (2 sources) HMG-CoA Reductase Inhibitor Start: 8 End: 5 take 1 tablet by mouth once daily Atorvastatin 40 mg tablet Discontinued 40 mg PO daily November 11, 2017 12:00am November 24, 2024 2:19pm azelastine hydrochloride 0.137 mg/actuat metered dose nasal spray (20 sources) Histamine-1 Receptor Antagonist Start: 8 End: 4 Azelastine 137 mcg (0.1 %) aerosol,spray Discontinued 1 NMA INTRANASAL TWICE A DAY 27 12September 25, 2020 2:25pm May 14, 2022 2:18pm administer into each nostril Comment on above: Use 1 [place] in each nostril twice daily. azelastine hydrochloride 0.137 mg/actuat / fluticasone propionate 0.05 mg/actuat metered dose nasal spray (4 sources) Corticosteroid, Histamine-1 Receptor Antagonist Start: 8 End: 9 Azelastine-Fluticaso ne (Dymista) 137-50 mcg/spray spray,non-aerosol Discontinued 1 NMA INTRANASAL TWICE A DAY 20 12April 08, 2018 4:23pm March 31, 2019 12:44pm Budesonide-Formoterol (20 sources) Corticosteroid, beta2-Adrenergic Agonist Start: 3 End: 4 Budesonide-Formotero l (Symbicort) 160-4.5 mcg/actuation HFA aerosol inhaler Discontinued 2 NMA INHALATION TWICE A DAY 1 November 06, 2022 1:19pm April 05, 2024 1:55pm administer with spacer, rinse mouth after each use Start: 11-06-2022 End: 04-05-2024 Budesonide-Formoterol (Symbi ziyad) 160-4.5 mcg/actuation HFA aerosol inhaler Discontinued 2 NMA INHALATION TWICE A DAY November 06, 2022 1:19pm April 05, 2024 1:55pm administer with spacer, rinse mouth after each use Start: 11-08-2021 End: 11-06-2022 Budesonide-Formoterol (Symbi ziyad) 160-4.5 mcg/actuation HFA aerosol inhaler Discontinued 2 NMA INHALATION TWICE A DAY 1 November 08, 2021 2:48pm November 06, 2022 1:20pm administer with spacer, rinse mouth after each use Start: 11-08-2021 End: 11-06-2022 Budesonide-Formoterol (Symbi ziyad) 160-4.5 mcg/actuation HFA aerosol inhaler Discontinued 2 NMA INHALATION TWICE A DAY November 08, 2021 2:48pm November 06, 2022 1:20pm administer with spacer, rinse mouth after each use Start: 01-16-2021 End: 11-08-2021 Budesonide-Formoterol (Symbi ziyad) 160-4.5 mcg/actuation HFA aerosol inhaler Discontinued 2 NMA INHALATION TWICE A DAY 1 January 16, 2021 1:46pm November 08, 2021 2:48pm administer with spacer, rinse mouth after each use Start: 01-16-2021 End: 11-08-2021 Budesonide-Formoterol (Symbi ziyad) 160-4.5 mcg/actuation HFA aerosol inhaler Discontinued 2 NMA INHALATION TWICE A DAY January 16, 2021 1:46pm November 08, 2021 2:48pm administer with spacer, rinse mouth after each use Start: 07-28-2020 End: 01-16-2021 Budesonide-Formoterol (Symbi ziyad) 160-4.5 mcg/actuation HFA aerosol inhaler Discontinued 2 NMA INHALATION TWICE A DAY 1 July 28, 2020 12:52pm January 16, 2021 1:47pm administer with spacer, rinse mouth after each use Start: 07-28-2020 End: 01-16-2021 Budesonide-Formoterol (Symbi ziyad) 160-4.5 mcg/actuation HFA aerosol inhaler Discontinued 2 NMA INHALATION TWICE A DAY 1 July 28, 2020 12:52pm January 16, 2021 1:47pm administer with spacer, rinse mouth after each use Start: 02-10-2020 End: 07-28-2020 Budesonide-Formoterol (Symbi ziyad) 160-4.5 mcg/actuation HFA aerosol inhaler Discontinued 2 NMA INHALATION TWICE A DAY 1 February 10, 2020 11:15am July 28, 2020 12:53pm administer with spacer, rinse mouth after each use Start: 02-10-2020 End: 07-28-2020 Budesonide-Formoterol (Symbi ziyad) 160-4.5 mcg/actuation HFA aerosol inhaler Discontinued 2 NMA INHALATION TWICE A DAY 1 February 10, 2020 11:15am July 28, 2020 12:53pm administer with spacer, rinse mouth after each use Start: 01-21-2020 End: 02-10-2020 Budesonide-Formoterol (Symbi ziyad) 160-4.5 mcg/actuation HFA aerosol inhaler Discontinued 2 NMA INHALATION TWICE A DAY 1 3 January 21, 2020 12:00am February 10, 2020 11:15am administer with spacer, rinse mouth after each use take 2 puff(s) by in halation twice daily budesonide-formoterol (SYMBICORT) 160-4.5 mcg/actuation inhaler Inhale 2 Puffs as instructed twice daily. Active take 2 puff(s) by in halation twice daily budesonide-formoterol (SYMBICORT) 160-4.5 mcg/actuation inhaler Inhale 2 Puffs as instructed twice daily. 0 Active Comment on above: Inhale 2 Puffs as in structed twice daily. 12 hr buPROPion hydrochloride 150 mg extended release oral tablet (5 sources) Aminoketone Start: End: 5 take 1 tablet by mouth once daily Bupropion Hcl 150 mg tablet sustained-release 12 hr Discontinued 150 mg PO DAILY May 11, 2021 2:24pm September 08, 2024 1:48pm Start: 11-11-2017 End: 05-11-2021 take 1 tablet by mouth twice daily Bupropion Hcl 150 mg tablet extended release 12 hr Discontinued 150 mg PO TWICE A DAY November 11, 2017 12:00am May 11, 2021 2:30pm End: 11-16-2021 BUPROPION HCL (WELLBUTRIN OR AL) Take by mouth. 0 11/16/2021 Discontinued Comment on above: Take by mouth. CPAP (1 source) Start: 02-13-20 End: 11-17-19 CPAP Use as directed 0 02/13/2012 11/16/2021 Discontinued Comment on above: Use as directed docusate sodium 100 mg oral tablet (1 source) Docusate Sodium 100 mg tab Take by mouth twice daily. 0 Active Comment on above: Take by mouth twice daily. doxepin hydrochloride 50 mg oral capsule (2 sources) Tricyclic Antidepressant Start: 11-12-19 End: 05-11-20 take 1 capsule by mouth at bedtime Doxepin 50 mg capsule Discontinued 50 mg PO AT BEDTIME November 11, 2017 12:00am May 11, 2021 2:25pm DULoxetine 60 mg delayed release oral capsule (2 sources) Serotonin and Norepinephrine Reuptake Inhibitor Start: 11-12-19 End: 02-20-20 take 1 capsule by mouth once daily Duloxetine 60 mg capsule,delayed release(DR/EC) Discontinued 60 mg PO daily November 11, 2017 12:00am February 19, 2018 1:18pm 1 ml evolocumab 140 mg/ml auto-injector (2 sources) PCSK9 Inhibitor Start: 11-25-19 End: 01-28-20 Evolocumab (Repatha Sureclick) 140 mg/mL pen injector Discontinued 140 mg SC every 2 weeks November 24, 2024 12:00am January 27, 2025 2:30pm famotidine 20 mg oral tablet (2 sources) Histamine-2 Receptor Antagonist Start: 11-12-19 End: 02-20-20 18 take 1 tablet by mouth once daily Famotidine 20 mg tablet Discontinued 20 mg PO daily November 11, 2017 12:00am February 19, 2018 1:18pm fenofibrate 54 mg oral tablet (2 sources) Peroxisome Proliferator Receptor alpha Agonist Start: 11-12-19 End: 09-09-19 25 take 1 tablet by mouth once daily Fenofibrate 54 mg tablet Discontinued 54 mg PO daily November 11, 2017 12:00am September 08, 2024 1:50pm fluticasone propionate 0.05 mg/actuat metered dose nasal spray (20 sources) Corticosteroid Start: 04-14-20 End: 10-03-19 24 Fluticasone Propionate 50 mcg/actuation spray,suspension Discontinued 1 NMA INTRANASAL TWICE A DAY 16 August 06, 2019 5:26pm July 28, 2020 12:53pm Start: 01-14-2018 End: 01-14-2018 Fluticasone Propionate (Flov ent Hfa) 220 mcg/actuation HFA aerosol inhaler Discontinued 1 NMA INHALATION TWICE A DAY January 14, 2018 12:00am January 14, 2018 9:50am Start: 11-11-2017 End: 01-14-2018 Fluticasone Propionate 220 m cg/actuation HFA aerosol inhaler Discontinued 1 NMA INHALATION Q12H November 11, 2017 12:00am January 14, 2018 8:51am Start: 02-13-2012 fluticasone (F LONASE) 50 mcg/actuation nasal spray Use 1 [place] in each nostril as needed. in each nostril. 02/13/2012 Active Comment on above: Use 1 [place] in each nostril as needed. in each nostril. furosemide 20 mg oral tablet (1 source) Loop Diuretic End: 2 take 1 tablet by mouth once daily furosemide (LASIX) 20 mg tablet Take 20 mg by mouth once daily. 0 11/16/2021 Discontinued Comment on above: Take 20 mg by mouth once daily. glimepiride 2 mg oral tablet (14 sources) Sulfonylurea Start: 8 End: 1 take 1 tablet by mouth once daily in the morning Glimepiride 2 mg tablet Discontinued 2 mg PO EVERY MORNING November 11, 2017 12:00am May 11, 2021 2:35pm take 0.5 mg by mouth twice daily at mealtime glimepiride (AMARYL) 1 mg tablet Take 0. 5 mg by mouth twice daily with meals. Active glimepiride (AMA RYL) 1 mg tablet 5 mg. 1 QAM 1/2 QPM 0 Active Comment on above: 5 mg. 1 QAM 1/2 QPM Take 0.5 mg by mouth twice daily with meals. glipiZIDE 5 mg / metFORMIN hydrochloride 500 mg oral tablet (1 source) Biguanide, Sulfonylurea End: 11-16 take 1 tablet by mouth twice daily before mealtime glipiZIDE-metFORMIN (METAGLIP) 5-500 mg tablet Take 1 tablet by mouth twice daily before meals. 0 11/16/2021 Discontinued Comment on above: Take 1 tablet by oskar th twice daily before meals. 12 hr guaiFENesin 1200 mg extended release oral tablet (2 sources) Start : 10-02 End: 11-24 take 1 tablet by mouth every twelve hours Guaifenesin 1,200 mg tablet extended release 12hr Discontinued 1200 mg PO Q12H 60 6 October 03, 2023 12:00am November 24, 2024 2:19pm hydroCHLOROthiazide 12.5 mg oral tablet (2 sources) Thiazide Diuretic Start : 11-11 End: 09-08 take 1 tablet by mouth once daily in the morning Hydrochlorothiazide 12.5 mg tablet Discontinued 12.5 mg PO EVERY MORNING November 11, 2017 12:00am September 08, 2024 1:51pm icosapent ethyl 1000 mg oral capsule (1 source) icosapent ethyl (VASCEPA) 1 gram Take 1 g by mouth twice daily. 0 Active Comment on above: Take 1 g by mouth tw ice daily. lactulose 667 mg/ml oral solution (1 source) Osmotic Laxative Start : 06-01 End: 11-16 lactulose 10 gram/15 mL ORAL solution one tablespoon daily as needed 0 06/01/2010 11/16/2021 Discontinued Comment on above: one tablespoon daily as needed linagliptin 5 mg oral tablet (2 sources) Dipeptidyl Peptidase 4 Inhibitor Start : 02-19 End: 05-11 take 1 tablet by mouth once daily Linagliptin (Tradjenta) 5 mg tablet Discontinued 5 mg PO DAILY February 19, 2018 12:00am May 11, 2021 2:28pm LORazepam 0.5 mg oral tablet (2 sources) Benzodiazepine Start : 11-11 End: 03-31 Lorazepam 0.5 mg tablet Discontinued 0.5 mg PO 2 to 3 times per day as needed November 11, 2017 12:00am March 31, 2019 12:50pm montelukast 10 mg oral tablet (20 sources) Leukotriene Receptor Antagonist Start : 01-16 End: 10-06 take 1 tablet by mouth once daily in the evening Montelukast (Singulair) 10 mg tablet Discontinued 10 mg PO EVERY EVENING 90 3 October 05, 2021 12:12pm November 08, 2021 2:48pm Start: 07-28-2020 End: 05-11-2021 take 2 tablets by mouth once daily Montelukast 5 mg tablet,chewable Discontinued 10 mg PO DAILY 60 6 July 28, 2020 1:00am May 11, 2021 2:27pm Start: 01-14-2018 End: 07-28-2020 take 1 tablet by mouth once daily in the evening Montelukast 10 mg tablet Discontinued 10 mg PO EVERY EVENING 90 3 August 13, 2019 3:01pm July 28, 2020 12:53pm Comment on above: Take 10 mg by mouth daily at bedtime. polyethylene glycol 3350 02735 mg powder for oral solution (3 sources) Osmotic Laxative Start: 11-11-2017 End: 09-08-2024 Polyethylene Glycol 3350 17 gram/dose powder Discontinued PO 0 November 11, 2017 12:00am September 08, 2024 1:52pm Start: 07-11-2014 take 1 dose by mouth once daily as needed polyethylene glycol 3350 (MIRALAX, GLYCOLAX) 17 gram packet Take 1 Packet by mouth once daily as needed. 30 Packet 0 07/11/2014 Active Comment on above: Take 1 Packet by oskar once daily as needed. predniSONE 5 mg oral tablet (10 sources) End: 4 predniSONE 5 mg DsPk Take by mouth. 04/16/2024 Discontinued Comment on above: Take by mouth. simethicone 125 mg oral capsule (1 source) End: 2 take 2 capsules by mouth once daily Simethicone 125 mg cap Take 250 mg by mouth once daily. 0 11/16/2021 Discontinued Comment on above: Take 250 mg by mouth once daily. Problems Active Problems Problem Classification Problem Date Documented Da te Episodic/Chronic Adjustment disorders (12 sources) Adjustment disorder; Translations: [Adjustment disorder, unspecified] 12-02-2019 Chronic Anxiety disorders (2 sources) Mixed anxiety and depressive disorder; Translations: [Anxiety disorder, unspecified] 11-24-2024 Chronic Asthma (16 sources) Asthma; Translations: [Unspecified asthma, uncomplicated] Onset: 5 02-10-2020 Chronic Cardiac dysrhythmias (20 sources) Paroxysmal atrial fibrillation; Translations: [Paroxysmal atrial fibrillation] Onset: 3 01-07-2023 Chronic Chronic kidney disease (3 sources) Chronic kidney disease stage 3B ; Translations: [Stage 3b chronic kidney disease] 11-24-2024 Chronic Chronic obstructive pulmonary disease and bronchiectasis (15 sources) Chronic obstructive lung disease; Translations: [Chronic obstructive pulmonary disease, unspecified] Onset: 4 12-02-2019 Chronic Complications of surgical procedures or medical care (12 sources) Postoperative hypothyroidism; Translations: [Postprocedural hypothyroidism] Onset: 0 Chronic Diabetes mellitus with complications (1 source) Type 2 diabetes mellitus with unspecified complications; Translations: [Type 2 diabetes mellitus with unspecified complications] Onset: 5 Chronic Diabetes mellitus without complication (17 sources) Type 2 diabetes mellitus; Translations: [Type 2 diabetes mellitus without complications] Onset: 0 12-02-2019 Chronic Disorders of lipid metabolism (19 sources) Mixed hyperlipidemia; Translations: [Mixed hyperlipidemia] Onset: 0 Chronic Diverticulosis and diverticulitis (20 sources) Diverticulitis; Translations: [Diverticulitis of intestine, part unspecified, without perforation or abscess without bleeding] Onset: 5 Resolved: 3 12-02-2019 Chronic Esophageal disorders (4 sources) Gastroesophageal reflux disease; Translations: [Gastro-esophageal reflux disease without esophagitis] 11-11-2017 Chronic Essential hypertension (19 sources) Benign hypertension; Translations: [Essential (primary) hypertension] Onset: 0 Chronic Genitourinary symptoms and ill-defined conditions (20 sources) Urge incontinence of urine; Translations: [Urge incontinence] Onset: 0 04-16-2010 Chronic Glaucoma (12 sources) Glaucoma; Translations: [Unspecified glaucoma] 12-02-2019 Chronic Melanomas of skin (12 sources) Malignant melanoma; Translations: [Malignant melanoma of skin, unspecified] 12-02-2019 Chronic Nutritional deficiencies (2 sources) Vitamin D deficiency; Translations: [Vitamin D deficiency, unspecified] 11-24-2024 Chronic Osteoarthritis (12 sources) Degenerative joint disease involving multiple joints; Translations: [Polyosteoarthritis, unspecified] 12-02-2019 Chronic Other and ill-defined heart disease (8 sources) Diastolic dysfunction; Translations: [Other ill-defined heart diseases] 12-02-2019 Chronic Other circulatory disease (13 sources) Orthostatic hypotension; Translations: [Orthostatic hypotension] Episodic Other connective tissue disease (12 sources) Fibromyalgia; Translations: [Fibromyalgia] 12-02-2019 Episodic Other endocrine disorders (3 sources) Hyperparathyroidism; Translations: [Hyperparathyroidism, unspecified] 11-24-2024 Chronic Other gastrointestinal disorders (2 sources) Irritable bowel syndrome; Translations: [Irritable bowel syndrome without diarrhea] 11-24-2024 Chronic Other lower respiratory disease (2 sources) Cough; Translations: [Cough] 11-11-2017 Episodic Other nervous system disorders (2 sources) Tremor; Translations: [Tremor, unspecified] 11-24-2024 Episodic Other nutritional; endocrine; and metabolic disorders (2 sources) Obesity; Translations: [Obesity, unspecified] 11-24-2024 Chronic Other screening for suspected conditions (not mental disorders or infectious disease) (15 sources) Abnormal results function studies of central nervous system; Translations: [Abnormal results of other function studies of central nervous system] Onset: 8 12-02-2019 Episodic Other upper respiratory disease (12 sources) Allergic rhinitis due to pollen; Translations: [Allergic rhinitis due to pollen] 12-02-2019 Chronic Other upper respiratory disease (2 sources) Chronic rhinitis; Translations: [Chronic rhinitis] 11-11-2017 Chronic Other upper respiratory disease (2 sources) Sneezing; Translations: [Sneezing] 11-24-2024 Episodic Residual codes; unclassified (12 sources) Sleep apnea; Translations: [Sleep apnea, unspecified] 07-08-2014 Chronic Residual codes; unclassified (2 sources) Obstructive sleep apnea syndrome; Translations: [Obstructive sleep apnea (adult) (pediatric)] 11-24-2024 Chronic Syncope (1 source) Syncope and collapse Onset: 8 Episodic Thyroid disorders (18 sources) Hypothyroidism; Translations: [Hypothyroidism, unspecified] Onset: 5 Resolved: 5 12-02-2019 Chronic Unclassified (1 source) Unknown / UNK(Unknown) Onset: 8 Unclassified (12 sources) Herniated urinary bladder; Translations: [Cystocele] Onset: 0 05-23-2010 Past or Other Problems Problem Classification Problem Date Documented Da te Episodic/Chronic Cardiac dysrhythmias (20 sources) Palpitations; Translations: [Palpitations] Onset: 04-08-2011 Episodic Complications of surgical procedures or medical care (4 sources) Leakage of bile; Translations: [Other postprocedural complications and disorders of digestive system] Onset: 07-08-2014 Resolved: 05-10-2020 05-10-2020 Episodic Conditions associated with dizziness or vertigo (12 sources) Dizziness; Translations: [Dizziness and giddiness] Onset: 12-02-2019 Resolved: 04-02-2024 12-02-2019 Episodic Malaise and fatigue (12 sources) Fatigue; Translations: [Other fatigue] Onset: 04-16-2010 Resolved: 04-02-2024 04-16-2010 Episodic Melanomas of skin (12 sources) History of malignant melanoma of the skin; Translations: [Personal history of malignant melanoma of skin] Onset: 10-10-2005 10-10-2005 Episodic Other aftercare (5 sources) Long-term current use of anticoagulant; Translations: [termite exterminator (current) use of anticoagulants] Onset: 06-05-2023 06-05-2023 Episodic Other aftercare (1 source) [facility] (current) use of anticoagulants; Translations: [termite exterminator current use of anticoagulant] Onset: 06-05-2023 Episodic Other female genital disorders (12 sources) Lesion of vulva; Translations: [Other specified noninflammatory disorders of vulva and perineum] Onset: 04-16-2010 04-16-2010 Episodic Other gastrointestinal disorders (12 sources) Constipation; Translations: [Constipation, unspecified] Onset: 07-08-2014 Resolved: 12-07-2023 12-07-2023 Episodic Other skin disorders (12 sources) Night sweats; Translations: [Generalized hyperhidrosis] Onset: 04-16-2010 04-16-2010 Episodic Residual codes; unclassified (20 sources) Past history of procedure; Translations: [Personal history of other medical treatment] Onset: 04-15-2018 12-02-2019 Episodic Results Test Name Value Interpretation Reference Range Facility Cardiology Visit Reporton Cardiology Visit Report [facility] [address] [place] [address] OFFICE VISIT Date of Service: 12/22/24 MR#: [id number] Acct: [id number] Name: ELA ESTRADA Rep #: [id number] : 1940 Provider: Dr. Eliazar Fischer MD Age/Sex: 84/F Location: [facility] [place] Status: Signed HPI HPI History of Present Illness Details: 84-year-old lady with a previous cardiac history consisting of hypertension, paroxysmal atrial fibrillation, who presents here for an evaluation. She says that she has been feeling tired as well as has had some shortness of breath but has not had any palpitations. She has been compliant with her medications she says that her blood sugars have been elevated and she is scheduled to see an center director soon. She does occasionally get some chest pain with shortness of breath and heart pounding. Her appetite has been poor. As part of her workup she did have a stress test in January 2023 with no evidence of ischemia noted. She also had an event monitor placed which demonstrated no pauses over 2.1 seconds, an average heart rate of 59 bpm and minimum heart rate of 38 bpm and maximal 120 bpm in sinus rhythm. An echocardiogram that was performed also demonstrated normal left ventricular ejection fraction mild 1-2+ mitral regurgitation estimated EF of 59% asymmetric septal hypertrophy but no evidence of ANITA or outflow tract abnormality noted. She has previously been intolerant of statins and is due to see the center director. Her physical exam today is unremarkable her electrocardiogram demonstrates sinus bradycardia with a rate of 46 bpm. Intake Vital Signs 09/08/24 08:54 12/22/24 14:20 Height 5 ft 2.5 in 5 ft 2.5 in Weight: 176 lb 175 lb BMI 31.6 31.5 BP 142/76 H 170/69 H Blood Pressure Location Lt brachial Lt brachial Position Sitting Sitting Respiration 20 H 16 Pulse 67 46 L Pulse Source Monitor Monitor Temp 97.6 F L Temperature Source Temporal Artery Pulse Oximetry (%) 97 Oxygen Delivery Method room air Intake Visit Reasons: AFIB ([place]ison) Cloud Software Engineer Required: No Accompanied by: Self Is patient in pain?: No Allergies codeine Allergy (Severe, Verified 12/22/24 14:27) Hives doxycycline Allergy (Intermediate, Verified 12/22/24 14:27) PT UNSURE OF REACTION levofloxacin (From Levaquin) Allergy (Intermediate, Verified 12/22/24 14:27) Pain in joints acetaminophen (From Vicodin) Allergy (Unknown, Verified 12/22/24 14:27) Unknown amoxicillin Allergy (Unknown, Verified 12/22/24 14:27) Unknown hydrocodone (From Vicodin) Allergy (Unknown, Verified 12/22/24 14:27) Unknown morphine Allergy (Unknown, Verified 12/22/24 14:27) Nausea/Vom/Diarrhea Jexyajc-Iaw-Xep Reductase Inhibitor (Gbisiho-IXT-YtW Reductase Inhibitor) Adverse Reaction (Severe, Verified 12/22/24 14:27) Pain in joints Medications ???Medication ???Instructions ???Recorded ???Confirmed ???Type lansoprazole 30 mg capsule,delayed 30 mg PO QDAY 11/11/17 12/22/24 History release (Prevacid) linaclotide 145 mcg capsule 145 mcg PO DAILY 05/11/21 12/22/24 History (Linzess) Nebulizer machine #1 ea 10/03/23 09/08/24 Rx azelastine 137 mcg (0.1 %) nasal 1 spray intranasal BID #30 mL 04/0 11/2012/22/24 Rx spray fluticasone propionate 50 1 spray intranasal BID #16 grams 0 10/03/23 12/22/24 Rx mcg/actuation nasal spray,suspension ipratropium 0.5 mg-albuterol 3 mg 3 ml inhalation Q4H PRN PRN SOB 0 10/03/23 12/22/24 Rx (2.5 mg base)/3 mL nebulization /OR WHEEZING #180 mL soln montelukast 10 mg tablet 10 mg PO QPM #90 tabs 04/09/24 06/ 25/25 Rx (Singulair) albuterol sulfate 90 mcg/actuation 2 inh inhalation Q4H PRN shortne ss 04/05/24 12/22/24 Rx breath activated powder inhaler of breath or wheezing #1 ea (ProAir RespiClick) fluticasone furoate 200 1 inh inhalation QDAY #60 ea 04/0512/22/24 Rx mcg-vilanterol 25 mcg/dose inhalation powder (Breo Ellipta) rivaroxaban 20 mg tablet (Xarelto) 20 mg PO QDAY 04/05/24 12/22/24 History mirabegron 50 mg tablet,extended 50 mg PO QDAY 09/08/24 12/22/24 Hi story release 24 hr sertraline 100 mg tablet 100 mg PO DAILY 09/08/24 12/22/24 History cholecalciferol (vitamin D3) 50 50 mcg PO QDAY 11/24/24 12/22/24 H istory mcg (2,000 unit) capsule coenzyme Q10 200 mg capsule (Co 200 mg PO QDAY 11/24/24 12/22/24 H istory Q-10) evolocumab 140 mg/mL subcutaneous 140 mg subcut Q2W 11/24/24 History pen injector (Repatha SureClick) glipizide 5 mg tablet 2.5 mg PO BID 11/24/24 12/22/24 Hi story magnesium oxide 400 mg PO BID 11/24/24 12/22/24 Hi story vitamin B complex 1 tab PO QDAY 11/24/24 12/22/24 Hi story alprazolam 0.5 mg tablet 0.5 mg PO BID 12/22/24 12/22/24 Hi story amlodipine 5 mg tablet 5 mg PO DAILY (more content not included)... Normal [facility] Pulmonary Visit Reporton Pulmonary Visit Report [facility] of [address] [place], [place] [address] OFFICE VISIT Date of Service: 09/08/24 MR#: [id number] Acct: [id number] Name: ELA ESTRADA Araseli Rep #: [id number] : 1940 Provider: Tiki Harris NP Age/Sex: 84/F Location: [facility] [place].[facility] Status: Signed Assessment and Plan Assessment and Plan (1) Asthma: Status: Chronic Qualifiers: Asthma complication type: uncomplicated Asthma persistence: persistent Asthma severity: moderate Qualified Code(s): J45.40 - Moderate persistent asthma, uncomplicated Plan: Deteriorated due to noncompliance with daily maintenance inhaler. I have explained the rationale for using her daily maintenance inhaler as prescribed. I have explained the rationale of avoiding overuse of her albuterol inhaler. I have asked for her to utilize her Breo once daily in the morning. I have discussed ways that she can improve her compliance. I have recommended a PFT but patient would like to hold on this for the time being until she can increase compliance with therapy. I plan to reassess on follow-up and if her respiratory symptoms do not improve with full compliance on Breo then I will continue to recommend a PFT be obtained. She does not appear to be in exacerbation today. She has been encouraged to contact the office with any new or worsening symptoms in the meantime. I do believe that her sinus symptoms are contributing to worsening respiratory symptoms and I have encouraged her to consider an [id number]-[id number] antihistamine such as Claritin or Zyrtec. Plan Details Follow Up: 6 Months (LMR) HPI HPI Comments Details: This patient presents to the office today for follow-up of her asthma. She is ambulatory with the use of a cane. She is currently on room air. She has not recently been seen in the ED or urgent care for any respiratory illness. She has not required any antibiotics or prednisone for any breathing problems. At last visit she was changed from Symbicort to Breo due to concerns for struggling to actuate the Symbicort. The patient has not been compliantly using the Breo inhaler. She is unable to give the frequency of use but does report that it is not daily. She does report rinsing her mouth out after each use. She denies any medication side effect such as sore throat or thrush. She is using albuterol daily. She is compliant with Flonase and azelastine daily. She is also on Singulair daily. She is not utilizing a daily antihistamine. The patient reports that her respiratory symptoms are improved. She still experiences shortness of breath on exertion. She also notices shortness of breath with anxiety. Occasionally she will become dizzy if she is not able to get her air in. She does not exercise in her routine manner due to lower extremity pain. Currently she has a nonproductive cough. She reports postnasal drainage is present. She does have some hoarseness due to this drainage. She is reporting sinus congestion and sinus drainage. She has wheezing but denies any chest pain or palpitations. She reports occasional chest tightness, however she believes it is related to anxiety. She has been experiencing this off and on over the past 2 years since the passing of her son. She has not had any fever, chills or body aches. The patient is a lifelong non-smoker. Intake Vital Signs 04/05/24 07:42 09/08/24 08:54 Height 5 ft 2.5 in 5 ft 2.5 in Weight: 176 lb BMI 31.6 BP 142/76 H Blood Pressure Location Lt brachial Position Sitting Respiration 20 H Pulse 67 Pulse Source Monitor Temp 97.6 F L Temperature Source Temporal Artery Pulse Oximetry (%) 97 Oxygen Delivery Method room air Intake Visit Reasons: 4 M FU Chief Complaint: cough, SOB, and difficulty breathing Cloud Software Engineer Required: No Accompanied by: Self Allergies acetaminophen (From Vicodin) Allergy (Unknown, Verified 09/08/24 13:47) Unknown amoxicillin Allergy (Unknown, Verified 09/08/24 13:47) Unknown codeine Allergy (Unknown, Verified 09/08/24 13:47) NEEDS FOLLOW-UP hydrocodone (From Vicodin) Allergy (Unknown, Verified 09/08/24 13:47) Unknown morphine Allergy (Unknown, Verified 09/08/24 13:47) Unknown Medications ???Medication ???Instructions ???Recorded ???Confirmed ???Type atorvastatin 40 mg tablet 40 mg PO QDAY 11/11/17 09/08/24 Hi story lansoprazole 30 mg capsule,delayed 30 mg PO QDAY 11/11/17 09/08/24 History release (Prevacid) alprazolam 1 mg tablet 1 mg PO TID PRN anxiety 03/31/19 0 09/08/24 History amlodipine 5 mg tablet 10 mg PO DAILY 11/16/19 09/08/24 H istory glipizide 5 mg tablet 5 mg PO BID 05/11/21 09/08/24 Hist ory linaclotide 145 mcg capsule 145 mcg PO DAILY 05/11/21 09/08/24 History (Linzess) Nebulizer machine #1 ea 10/03/23 09/08/24 Rx azelastin (more content not included)... Normal [facility] .GFRon 09-03-2024 Estimated Glomerular Filtration Rate 48 ml/min/1.73sqm Normal [facility] Comment on above: Result Comment: Stages of Chronic Kidney Disease (CKD) Stage Description eGFR(ml/min/1.73 sq.m.) CKD 1 Normal kidney function or >=90 normal kindney function with possible kidney damage (ex. Proteinuria) CKD 2 Kidney damage with mild loss 60-89 of kidney function CKD 3a Mild to moderate loss of kidney 45-59 function CKD 3b Moderate to severe loss of 30-44 of kindey function CKD 4 Severe loss of kidney function 15-29 CKD 5 Kidney failure <15 Note: (go live 2024) the eGFR calculation was updated to the 2020 CKD-EPI creatinine equation without a race factor to calculate the eGFR results. Performed By: #### C AIMARISSA, GFR, BMP #### [place] [address] ALT/SGPTon 09-03-2024 ALT [Catalytic activity/Vol] 9 U/L Low 10-49 [facility] Comment on above: Performed By: #### P TH, AST, LIPID, ALT, B12, FT4, TSH, VIDH #### [place] [id number] Leilani 09-03-2024 AST [Catalytic activity/Vol] 18 U/L Normal 8-34 [facility] Comment on above: Performed By: #### P TH, AST, LIPID, ALT, B12, FT4, TSH, VIDH #### [address] [address] B12on 09-03-2024 Cobalamin (Vitamin B12) [Mass/Vol] 1124 pg/mL High 211-911 [facility] Comment on above: Performed By: #### P TH, AST, LIPID, ALT, B12, FT4, TSH, VIDH #### [place] [id number] BMPon 03-07-2025 BUN/Creatinine Ratio 25.4 ratio High 10.0-22.0 [facility] Comment on above: Performed By: #### C CROW GFR, BMP #### [address] [address] Calcium [Mass/Vol] 10.6 mg/dL High 8.7-10.4 [facility] Comment on above: Performed By: #### Nati MARIA GFR, BMP #### [address] [address] Chloride [Moles/Vol] 106 mmol/L Normal 98-110 [facility] Comment on above: Performed By: #### Nati MARIA GFR, BMP #### [address] [address] CO2 [Moles/Vol] 28 mmol/L Normal 22-32 [facility] Comment on above: Performed By: #### Nati MARIA GFR, BMP #### [address] [address] Creatinine [Mass/Vol] 1.14 mg/dL Normal 0.50-1.20 [facility] Comment on above: Result Comment: Test ing performed on [employer] analyzer using enzymatic creatinine methodology. Performed By: #### Nati MARIA GFR, BMP #### [address] [address] Electrolyte Balance 8.0 mEq/L Normal 4.0-15.0 [facility] Comment on above: Performed By: #### Nati MARIA GFR, BMP #### [address] [address] Glucose [Mass/Vol] 136 mg/dL High 82-115 [facility] Comment on above: Performed By: #### Nati MARIA GFR, BMP #### [address] [address] Potassium [Moles/Vol] 4.0 mmol/L Normal 3.5-5.0 [facility] Comment on above: Performed By: #### Nati MARIA GFR, BMP #### [address] [address] Sodium [Moles/Vol] 142 mmol/L Normal 136-145 [facility] Comment on above: Performed By: #### C CROW, GFR, BMP #### [address] [address] Urea nitrogen [Mass/Vol] 29.0 mg/dL High 8.0-22.0 [facility] Comment on above: Performed By: #### C CROW, GFR, BMP #### [place] [id number] CAIONon 09-03-2024 Calcium Ionized 1.27 mmol/L Normal 1.12-1.32 [facility] Comment on above: Performed By: #### P TH, AST, LIPID, ALT, B12, FT4, TSH, VIDH #### [place] [id number] FT4on 09-03-2024 Free T4 [Mass/Vol] 1.18 ng/dL Normal 0.89-1.76 [facility] Comment on above: Result Comment: No te - New Reference Range in effect 20 Performed By: #### P TH, AST, LIPID, ALT, B12, FT4, TSH, VIDH #### [place] [id number] LIPIDon 09-03-2024 Cholesterol [Mass/Vol] 244 mg/dL High 50-199 [facility] Comment on above: Result Comment: Chol esterol Reference Interval: Less than 200 Desirable 200-239 Borderline high risk 240 and above High risk Performed By: #### P TH, AST, LIPID, ALT, B12, FT4, TSH, VIDH #### [place] [id number] Cholesterol in HDL [Mass/Vol] 42 mg/dL Normal 40-59 [facility] Comment on above: Performed By: #### P TH, AST, LIPID, ALT, B12, FT4, TSH, VIDH #### [place] [id number] Cholesterol in LDL [Mass/Vol] 166 mg/dL High 0-129 [facility] Comment on above: Performed By: #### P TH, AST, LIPID, ALT, B12, FT4, TSH, VIDH #### [place] [id number] [place] [address] Triglyceride [Mass/Vol] 180 mg/dL High 3-149 [facility] Comment on above: Performed By: #### P TH, AST, LIPID, ALT, B12, FT4, TSH, VIDH #### [place] [address] PTHon 09-03-2024 PTH, Intact 151.5 pg/mL High 18.5-88.0 [facility] Comment on above: Performed By: #### P TH, AST, LIPID, ALT, B12, FT4, TSH, VIDH #### [place] [address] TSHon 09-03-2024 TSH 1.043 mIU/mL Normal 0.550-4.780 [facility] Comment on above: Performed By: #### P TH, AST, LIPID, ALT, B12, FT4, TSH, VIDH #### [place] [address] VIDHon 09-03-2024 Vit. D 25-Hydroxy 38.8 ng/mL Normal [facility] Comment on above: Result Comment: Inte rpretive Values Based on Total 25(OH)D: Severe Deficiency <20 ng/mL Mild to Moderate Deficiency 20-30 ng/mL Optimum Levels 30-100 ng/mL Toxicity Possible >100 ng/mL Performed By: #### P TH, AST, LIPID, ALT, B12, FT4, TSH, VIDH #### [place] [address] .GFRon 06-04-2024 GFR 54 ml/min/1.73sqm Normal [facility] Comment on above: Result Comment: GFR Population mean for , Non- Americans Ages 20-29 = 116 mL/min/1.73 sq.m. Ages 30-39 = 107 mL/min/1.73 sq.m. Ages 40-49 = 99 mL/min/1.73 sq.m. Ages 50-59 = 93 mL/min/1.73 sq.m. Ages 60-69 = 85 mL/min/1.73 sq.m. Ages 70+ = 75 mL/min/1.73 sq.m. Chronic Kidney Disease: Less than 60 mL/min/1.73 square meters End Stage Renal Disease: Less than 15 mL/min/1.73 square meters Performed By: #### P TH, AST, LIPID, ALT, B12, FT4, TSH, VIDH #### [address] [address] GFR Non- 44 ml/min/1.73sqm Normal [facility] Comment on above: Result Comment: GFR Population mean for , Non- Americans Ages 20-29 = 116 mL/min/1.73 sq.m. Ages 30-39 = 107 mL/min/1.73 sq.m. Ages 40-49 = 99 mL/min/1.73 sq.m. Ages 50-59 = 93 mL/min/1.73 sq.m. Ages 60-69 = 85 mL/min/1.73 sq.m. Ages 70+ = 75 mL/min/1.73 sq.m. Chronic Kidney Disease: Less than 60 mL/min/1.73 square meters End Stage Renal Disease: Less than 15 mL/min/1.73 square meters Performed By: #### P TH, AST, LIPID, ALT, B12, FT4, TSH, VIDH #### [address] [address] ALT/SGPTon 06-04-2024 ALT [Catalytic activity/Vol] 11 U/L Normal 10-49 [facility] Comment on above: Performed By: #### P TH, AST, LIPID, ALT, B12, FT4, TSH, VIDH #### [address] [address] Leilani 06-04-2024 AST [Catalytic activity/Vol] 18 U/L Normal 8-34 [facility] Comment on above: Performed By: #### P TH, AST, LIPID, ALT, B12, FT4, TSH, VIDH #### [address] [address] B12on 06-04-2024 Vitamin B12 Lvl >2000 High 211-911 [facility] Comment on above: Performed By: #### P TH, AST, LIPID, ALT, B12, FT4, TSH, VIDH #### [address] [address] BMPon 06-04-2024 BUN/Creatinine Ratio 27.4 ratio High 10.0-22.0 [facility] Comment on above: Performed By: #### P TH, AST, LIPID, ALT, B12, FT4, TSH, VIDH #### [place] [id number] Calcium [Mass/Vol] 10.5 mg/dL High 8.7-10.4 [facility] Comment on above: Performed By: #### P TH, AST, LIPID, ALT, B12, FT4, TSH, VIDH #### [place] [address] Chloride [Moles/Vol] 108 mmol/L Normal 98-110 [facility] Comment on above: Performed By: #### P TH, AST, LIPID, ALT, B12, FT4, TSH, VIDH #### [place] [address] CO2 [Moles/Vol] 32 mmol/L Normal 22-32 [facility] Comment on above: Performed By: #### P TH, AST, LIPID, ALT, B12, FT4, TSH, VIDH #### [place] [address] Creatinine [Mass/Vol] 1.17 mg/dL Normal 0.50-1.20 [facility] Comment on above: Result Comment: Test ing performed on [employer] analyzer using enzymatic creatinine methodology. Performed By: #### P TH, AST, LIPID, ALT, B12, FT4, TSH, VIDH #### [place] [address] Electrolyte Balance 4.0 mEq/L Normal 4.0-15.0 [facility] Comment on above: Performed By: #### P TH, AST, LIPID, ALT, B12, FT4, TSH, VIDH #### [place] [address] Glucose [Mass/Vol] 115 mg/dL Normal 82-115 [facility] Comment on above: Performed By: #### P TH, AST, LIPID, ALT, B12, FT4, TSH, VIDH #### [place] [id number] Potassium [Moles/Vol] 4.0 mmol/L Normal 3.5-5.0 [facility] Comment on above: Performed By: #### P TH, AST, LIPID, ALT, B12, FT4, TSH, VIDH #### [place] [id number] Sodium [Moles/Vol] 144 mmol/L Normal 136-145 [facility] Comment on above: Performed By: #### P TH, AST, LIPID, ALT, B12, FT4, TSH, VIDH #### [place] [id number] Urea nitrogen [Mass/Vol] 32.0 mg/dL High 8.0-22.0 [facility] Comment on above: Performed By: #### P TH, AST, LIPID, ALT, B12, FT4, TSH, VIDH #### [place] [id number] CAIONon 06-04-2024 Calcium Ionized 1.28 mmol/L Normal 1.12-1.32 [facility] Comment on above: Performed By: #### P TH, AST, LIPID, ALT, B12, FT4, TSH, VIDH #### [place] [id number] FT4on 06-04-2024 Free T4 [Mass/Vol] 0.96 ng/dL Normal 0.89-1.76 [facility] Comment on above: Result Comment: No te - New Reference Range in effect 20 Performed By: #### P TH, AST, LIPID, ALT, B12, FT4, TSH, VIDH #### [place] [id number] LIPIDon 06-04-2024 Cholesterol [Mass/Vol] 250 mg/dL High 50-199 [facility] Comment on above: Result Comment: Chol esterol Reference Interval: Less than 200 Desirable 200-239 Borderline high risk 240 and above High risk Performed By: #### P TH, AST, LIPID, ALT, B12, FT4, TSH, VIDH #### [place] [address] Cholesterol in HDL [Mass/Vol] 40 mg/dL Normal 40-59 [facility] Comment on above: Performed By: #### P TH, AST, LIPID, ALT, B12, FT4, TSH, VIDH #### [place] [address] Cholesterol in LDL [Mass/Vol] 164 mg/dL High 0-129 [facility] Comment on above: Performed By: #### P TH, AST, LIPID, ALT, B12, FT4, TSH, VIDH #### [place] [id number] Triglyceride [Mass/Vol] 231 mg/dL High 3-149 [facility] Comment on above: Performed By: #### P TH, AST, LIPID, ALT, B12, FT4, TSH, VIDH #### [place] [address] MALBRon 06-04-2024 U Creatinine 139.5 mg/dL Normal [facility] Comment on above: Performed By: #### P TH, AST, LIPID, ALT, B12, FT4, TSH, VIDH #### [address] [address] U Microalb 1123 mcg/dL Normal [facility] Comment on above: Performed By: #### P TH, AST, LIPID, ALT, B12, FT4, TSH, VIDH #### [address] [address] U Ratio Alb/Cre 8.1 mcg/mg Normal 0.0-24.9 [facility] Comment on above: Performed By: #### P TH, AST, LIPID, ALT, B12, FT4, TSH, VIDH #### [place] [id number] PTHon 06-04-2024 PTH, Intact 162.9 pg/mL High 18.5-88.0 [facility] Comment on above: Performed By: #### P TH, AST, LIPID, ALT, B12, FT4, TSH, VIDH #### [place] [id number] [address] [place], [place] [id number] TSHon 06-04-2024 TSH 3.611 mIU/mL Normal 0.550-4.780 [facility] Comment on above: Performed By: #### P TH, AST, LIPID, ALT, B12, FT4, TSH, VIDH #### [address] [address] VIDHon 06-04-2024 Vit. D 25-Hydroxy 38.7 ng/mL Normal [facility] Comment on above: Result Comment: Inte rpretive Values Based on Total 25(OH)D: Severe Deficiency <20 ng/mL Mild to Moderate Deficiency 20-30 ng/mL Optimum Levels 30-100 ng/mL Toxicity Possible >100 ng/mL Performed By: #### P TH, AST, LIPID, ALT, B12, FT4, TSH, VIDH #### [place] [address] ED MED ADMINISTRATION DETAIL on 05-02-2024 ED MED ADMINISTRATION DETAIL Manager User Interface Medication Administration Record [address] [address] [id number] 04/28/2024 Patient: ELA ESTRADA Sex: Female : 1940 Age: 83y MEASUREMENTS: Wt: 77.1 kg, Ht/Napoleon: 62.0 in, BMI: 31.09 ALLERGIES: Cipro, Corticosteroids (Glucocorticoids), Dilaudid, Levaquin, Ultram, Vicodin, amoxicillin, atorvastatin, codeine, doxycycline, morphine, tramadol Medication Ordered Medication Administration Date/Time TraMADol (Ultram) 02:04/29 TraMADol (Ultram) PO 50 mg given. Allergies verified Given PO 50 mg (NOW x1) and confirmed 5 rights. Information reviewed with patient and 02:04/29/2024 spouse including reason for taking this medication, signs of allergic Amandeep Chirinos R.N. reaction and precautions. Verbalizes understanding. - 02:05 Scanned Amandeep Chirinos R.N. 1 of 1 [facility] ED NURSES CLINICAL NOTEon ED NURSES CLINICAL NOTE Nurse Narrative Nurse Clinical Narrative [place] [address] [place] [address] [id number] 04/28/2024 [id number] Sex[facility] Female : 1940 Age: 83y Disposition: Discharge to Home Disposition Decision Time: 02:01 04/29/2024 Departure Time: 02:49 04/29/2024 TRIAGE Arrived by private vehicle. Historian: patient. Accompanied by family. Triage time: 19:52 04/28/2024. Acuity: LEVEL 3. Chief Complaint: FALL. Slipped; fell onto the ground while walking. Landed on knees. (onto left hip and knee. Pt is on xerelto. Denies hitting head). Alert. No acute distress. The patient has had left leg pain. The patient has had trouble walking. Patient is on anticoagulation (blood thinner) therapy: includes xarelto. SEPSIS SCREEN: NEGATIVE. SIRS criteria negative. No possible sources of infection. -- 20:11 04/28/24 EDT Lesa Stroud R.N. 20:09 04/28/24. BP: 128/63 MAP: 85. HR: 57. RR: 16. O2 saturation: 96% Temperature: 98.5 F. Pain level now 8/10. Describes the pain as aching and burning. -- 20:09 04/28/24 EDT Lesa Stroud R.N. Measurements: 20:06 04/28/24 Wt: 77.1 kg, Ht/Napoleon: 62.0 in, BMI: 31.09 -- 20:06 04/28/24 EDT Lesa Stroud R.N. Medications: Medrol (Phil) 4 mg tablets in a dose pack -- 20:14 04/28/24 EDT Lesa Stroud R.N. 1 of 4 Nurse Narrative estradioL transdermal -- 20:16 04/28/24 EDT Lesa Stroud R.N. Allergies: Vicodin -- 19:57 04/28/24 EDT Lesa Stroud R.N. morphine -- 19:57 04/28/24 EDT Lesa Stroud R.N. codeine -- 19:57 04/28/24 EDT Lesa Stroud R.N. Dilaudid -- 19:58 04/28/24 EDT Lesa Stroud R.N. tramadol -- 19:58 04/28/24 EDT Lesa Stroud R.N. Ultram -- 19:58 04/28/24 EDT Lesa Stroud R.N. Corticosteroids (Glucocorticoids) -- 19:59 04/28/24 EDT Lesa Stroud R.N. doxycycline -- 20:12 04/28/24 EDT Lesa Stroud R.N. atorvastatin -- 20:12 04/28/24 EDT Lesa Stroud R.N. amoxicillin -- 20:13 04/28/24 EDT Lesa Stroud R.N. Levaquin -- 20:13 04/28/24 EDT Lesa Stroud R.N. Cipro -- 20:13 04/28/24 EDT Lesa Stroud R.N. Problems: Arthritis -- 20:00 04/28/24 EDT Lesa Stroud R.N. Atrial Fibrillation -- 20:01 04/28/24 EDT Lesa Stroud R.N. Hypertension -- 20:02 04/28/24 EDT Lesa Stroud R.N. Incontinence -- 20:02 04/28/24 EDT Lesa Stroud R.N. Asthma -- 20:13 04/28/24 EDT Lesa Stroud R.N. Diverticulitis -- 20:14 04/28/24 EDT Lesa Stroud R.N. ADDITIONAL SURGERIES: Gallbladder Surgery -- 20:03 04/28/24 EDT Lesa Stroud R.N. Hysterectomy -- 20:03 04/28/24 EDT Lesa Stroud R.N. History 19:52 04/28/24. SOCIAL HX: Never smoker. No alcohol use or drug use. The patient has not traveled outside the [place] Infectious disease exposure: No infectious disease exposure. ABUSE ASSESSMENT: The patient answered yes to the question(s) Do you feel safe in your home? and no to the question(s) Are you afraid to go home?. 2 of 4 Nurse Narrative SELF HARM ASSESSMENT: Self harm assessment was performed. The patient answered no to the question(s) Have you recently felt down, depressed, or hopeless? and Do you have thoughts of harming or killing yourself?. FALL RISK ASSESSMENT: Fall risk assessment completed. Risk factors identified include patient age greater than 65 years. -- 20:11 04/28/24 EDT Lesa Stroud R.N. Interventions 19:52 04/28/24. Identification band on patient. Advanced care plan. Patient does not have advanced directive. (full code). -- 20:11 04/28/24 EDT Lesa Stroud R.N. PHYSICAL ASSESSMENT 23:26 04/28/24. To room via wheelchair. Patient gowned. GENERAL / NEURO / PSYCH: Alert. Oriented X 4. Appears in pain. RESPIRATORY: Respirations not labored. CVS: Pulses within normal limits. Capillary refill less than 2 seconds. GI / : Abdomen soft. EXTREMITIES: The patient was unable to bear weight. ( pt endorses chronic hip and leg pain). SKIN: Skin intact. Skin is warm. -- 00:26 04/29/24 EDT Amandeep Chirinos R.N. 23:35 04/28/24. BP: 217/88 MAP: 130 mmHg. HR: 56 bpm. -- 00:24 04/29/24 EDT Amandeep Chirinos R.N. 00:03 04/29/24. HR: 67 bpm. O2 saturation: 98%. -- 00:24 04/29/24 EDT Amandeep Chirinos R.N. NURSING PROGRESS NOTES 23:27 04/28/24. RR: 16. Pain level now 8/10. -- 00:27 04/29/24 EDT Amandeep Chirinos R.N. 00:27 04/29/24. Patient transported to radiology and CT by stretcher with (zacarias). Two patient identifiers checked. Call light placed in reach. Side rails up x 2. Bed placed in lowest position. Brakes of bed on. Spouse at bedside. -- 00:28 04/29/24 EDT Amandeep Chirinos R.N. 00:57 04/29/24. Patient returned from radiology and CT by stretcher with tech. -- 01:07 04/29/24 EDT Amandeep Chirinos, (more content not included)... Normal [facility] ED ORDER SHEET (CPOE ONLY)on 05-02-2024 ED ORDER SHEET (CPOE ONLY) Order Sheet Order Sheet [facility] [address] [place] [id number] 04/28/2024 Patient: ELA ESTRADA Sex: Female : 1940 Age: 83y MEASUREMENTS: Wt: 77.1 kg, Ht/Napoleon: 62.0 in, BMI: 31.09 ALLERGIES: Cipro, Corticosteroids (Glucocorticoids), Dilaudid, Levaquin, Ultram, Vicodin, amoxicillin, atorvastatin, codeine, doxycycline, morphine, tramadol MEDICATION/IV/DRIP/FLUID ORDERS Order Description Priority Entered Acknowledged Completed TraMADol (Ultram) PO50 mg 01:54 04/29/2024 02:03 02:05 (NOW x1) Betty Murguia D.O. 04/29/2024 04/29/2024 Amandeep Mcguire R.N. R.N. Reason for ordering with alerts: Does not appear to be a true allergy --01:54 04/29/2024 Betty Murguia D.O. LAB ORDERS Order Description Priority Entered Acknowledged Collected Completed DIAGNOSTIC STUDY ORDERS Order Description Priority Entered Acknowledged Completed CT L-Spine wo IV Cont Stat Stat 00:12 04/29/2024 00:23 Betty Murguia D.O. 04/29/2024 Amandeep Chirinos R.N. Order Comments: 00:12 04/29/2024: Status: Not . Betty Murguia D.O. 1 of 2 Order Sheet Reason for Study: Trauma/Injury Hip L 2+Views w/AP Pelvis Stat Stat 00:12 04/29/2024 00:23 Betty Murguia D.O. 04/29/2024 Amandeep Chirinos R.N. Order Comments: 00:12 04/29/2024: Status: Not . Betty Murguia D.O. Reason for Study: Trauma/Injury Knee L 4V Stat Stat 00:12 04/29/2024 00:23 Betty Murguia D.O. 04/29/2024 Amandeep Chirinos R.N. Order Comments: 00:12 04/29/2024: Status: Not . Betty Murguia D.O. Reason for Study: Trauma/Injury Ankle L 3V Stat Stat 00:12 04/29/2024 00:23 Betty Murguia D.O. 04/29/2024 Amandeep Chirinos R.N. Order Comments: 00:12 04/29/2024: Status: Not . Betty Murguia D.O. Reason for Study: Trauma/Injury STAFF ORDERS Order Description Priority Entered Acknowledged Collected Completed Ralph Wrap (left ankle) 01:54 04/29/2024 06:43 04/29/2024 Nanda Bo R.N. [Electronically signed by Betty Murguia D.O. (05/02/2024 00:58 EDT)] 2 of 2 Normal [facility] ED PHYSICIAN CLINICAL REPORT on 05-02-2024 ED PHYSICIAN CLINICAL REPORT Narrative Physician Clinical Narrative [address] [place] [id number] 04/28/2024 Patient: ELA ESTRADA Sex: Female : 1940 Age: 83y Disposition: Discharge to Home Disposition Decision Time: 02:01 04/29/2024 Departure Time: 02:49 04/29/2024 Measurements Wt: 77.1 kg, Ht/Napoleon: 62.0 in, BMI: 31.09 Initial Vital Sign Measured Time BP MAP HR RR O2Sat ETCO2 Temp Pain GCS RTS 20:09 04/28/2024 128/63 85 57 16 96% 98.5 F 8 Time Seen: 00:01 04/29/2024. Arrived- By private vehicle. Historian- patient. HISTORY OF PRESENT ILLNESS Chief Complaint: Injury to left hip. The injury happened today. Occurred at home. Fell. Patient is experiencing moderate pain. Patient also notes injury to the lower back. REVIEW OF SYSTEMS MUSCULOSKELETAL: The patient complains of pain on weight bearing. The patient has had swelling. SKIN: No suspected foreign body or skin laceration. NEUROLOGICAL: No tingling, weakness or numbness. Status: Not . 1 of 8 Narrative PAST HISTORY See nurses notes. Heart disease. Lung disease. Arthritis Asthma Atrial Fibrillation Diverticulitis Hypertension Incontinence Surgeries: Gallbladder Surgery Hysterectomy Medications: estradioL transdermal Medrol (Phil) 4 mg tablets in a dose pack Allergies: amoxicillin atorvastatin Cipro codeine Corticosteroids (Glucocorticoids) Dilaudid doxycycline Levaquin morphine tramadol Ultram Vicodin SOCIAL HISTORY Never smoker. No alcohol use or drug use. 2 of 8 Narrative ADDITIONAL NOTES The nursing notes have been reviewed. PHYSICAL EXAM Appearance: Alert. Oriented X3. Patient in mild distress. Head: Head atraumatic. Eyes: Pupils equal, round and reactive to light. ENT: Nose normal. Pharynx normal. Neck: Normal inspection. Neck supple. C-spine non-tender. CVS: Normal heart rate. Heart sounds normal. Pulses normal. Respiratory: No respiratory distress. Breath sounds normal. Chest nontender. Abdomen: No visible injury. Soft and nontender. Bowel sounds normal. No organomegaly. No mass. Back: Vertebral point tenderness over the lower lumbar spine. Limited ROM in the back. Skin: Skin intact. Skin warm and dry. Normal skin color. Extremities: Left hip: moderate tenderness and mild swelling located in the lateral aspect of the hip. Limited ROM (diminished adduction). Neurovascular intact distally. No laceration, abrasion, ecchymosis or deformity. No avulsion. The left leg is not shortened or externally rotated. Left knee: moderate tenderness and mild swelling. Limited ROM (diminished flexion and extension). Neurovascular intact distally. No ligamentous laxity present. No joint effusion. No laceration, abrasion, ecchymosis, foreign body or deformity. Left ankle: moderate tenderness and mild swelling localized to the lateral ligaments. Limited ROM (diminished plantar flexion and dorsiflexion). Neurovascular intact distally. No ligamentous laxity present. No joint effusion. No erythema, laceration, abrasion, ecchymosis or foreign body. No deformity. Lower extremity exam otherwise negative. Extremities otherwise negative. Gait: Limping gait. Neuro, Vascular and Tendons: Vascular status intact. Sensation intact. Motor intact. Tendon function intact. Neuro: Oriented X 3. No motor deficit. No sensory deficit. LABS, X-RAYS, AND EKG X-Rays: Left hip negative. Left knee negative. Left ankle negative. CT L-Spine: No acute disease. Diagnostic Study Tests: ANKLE COMPLETE LT 3 of 8 Narrative Final EXAM Date: 04/29/2024 09:19:00 EDT MsgRcvd: 04/29/2024 09:[address] [address] Patient: ELA ESTRADA Phone#: : 1940 Age: 83 Gender: F Pt. Type: ER Account: [id number] Location: 052 Ordering: BETTY MURGUIA Exam Date: 04/29/2024/0:42 Family Phys: GORDO COOPER Charge Code: 142607 Physician: [place] Order #: [id number] Dose#: PROCEDURE: X-RAY ANKLE COMPLETE LT MIN 3 VIEWS COMPARISON: None. INDICATIONS: Falling injury. FINDINGS: BONES: The bones of the ankle are osteopenic. Calcaneal spur and enthesophyte are present. Degenerative changes present at the metatarsal tarsal joint. SOFT TISSUES: Negative. No visible soft tissue swelling. EFFUSION: None visible. OTHER: Negative. CONCLUSION: 1. There is no evidence of acute abnormality. Dictated by: Arleth Casiano MD on 04/29/2024 at 9:18 Approved by: Arleth Casiano MD on 04/29/2024 at 9:19 CT LUMBAR W/O CONTRAST Final EXAM Date: 04/29/2024 09:29:00 EDT MsgRcvd: 04/29/2024 09:[address] [address] Patient: ELA ESTRADA Ph (more content not included)... Normal [facility] ED SUPER BILLon 05-02-2024 ED [facility] BILL [address] [address] [id number] 04/28/2024 Patient: ELA ESTRADA Sex: Female : 1940 Age: 83y Item Facility Professional Category Description Code Code Quantity Fee Total Nurse/E/M EMERGENCY 525090 1 $0.00 $0.00 DEPARTMENT VISIT HIGH/URGENT SEVERITY (58618-45) Physician/Procedures Strapping - 972933 1 $0.00 $0.00 Ankle and or/foot (61420) Grand Total $0.00 Providers Betty Murguia D.O. Chief Complaint Injury to left hip. Principal Diagnosis 1 of 2 Superbill Sprain of the iliofemoral ligament of the left hip, lateral collateral ligament of the left knee and anterior talo-fibular ligament of the left ankle. Muscle strain of the lower back. 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 ED VISIT SUMMARYon ED VISIT SUMMARY Visit Overview Visit Overview [address] [address] [id number] 04/28/2024 Patient: ELA ESTRADA Sex: Female : 1940 Age: 83y 05/02/2024 12:58 AM EDT ED Arrival:19:46 04/28/2024 EDT Status:not Recent Travel:no Language:eng Adv Directive:No Isolation Status: Ethnicity:N Fall Risk:risk Infectious Disease Exposure:no Measurements:5'2 / 157.5 Self-Harm Status:risk Sepsis Screen:negative cm 170.0 lb / 77.1 kg Chief Complaint:fell onto the ground, Landed on knees, slipped, while walking, and (onto left hip and knee. Pt is on xerelto. Denies hitting head) ALLERGIES amoxicillin atorvastatin Cipro codeine Corticosteroids (Glucocorticoids) Dilaudid doxycycline 1 of 4 Visit Overview Levaquin morphine tramadol Ultram Vicodin HOME MEDICATIONS estradioL transdermal Medrol (Phil) 4 mg tablets in a dose pack PAST MEDICAL HISTORY / PROBLEMS Arthritis Asthma Atrial Fibrillation Diverticulitis Heart disease Hypertension Incontinence Lung disease See nurses notes PAST SURGICAL HISTORY Gallbladder Surgery Hysterectomy SOCIAL HISTORY Smoking status: No Alcohol use: No Drug use: No ED COURSE MEDICATIONS GIVEN IN EMERGENCY DEPARTMENT 02:04 04/29/24 TraMADol (Ultram) PO 50 mg 2 of 4 Visit Overview IV SITE INFORMATION INTAKE OUTPUT REASSESMENT (most recent) 02:08 04/29/24. The patient is calm and resting quietly. ( pt medicated for 02/06 hip pain with tramadol which pt had stated was an allergy,but was not sure when she last took one and wants to try it now citing that Tylenol doesn't really help with her pain.). Spouse at bedside. VITAL SIGNS First Vitals Last Vitals Temp 20:09 04/28/24 98.5 F Temp 02:49 04/29/24 BP 20:09 04/28/24 128/63 BP 02:49 04/29/24 HR 20:09 04/28/24 57 HR 02:49 04/29/24 RR 20:09 04/28/24 16 RR 02:49 04/29/24 16 O2 Sat 20:09 04/28/24 96% O2 Sat 02:49 04/29/24 Pain 20:09 04/28/24 8 Pain 02:49 04/29/24 6 ETCO2 20:09 04/28/24 ETCO2 02:49 04/29/24 GCS 20:09 04/28/24 GCS 02:49 04/29/24 RTS 20:09 04/28/24 RTS 02:49 04/29/24 PROCEDURES NURSING INTERVENTIONS LABS / STUDIES LABS / STUDIES ORDERED Ankle L 3V CT L-Spine wo IV Cont Hip L 2+Views w/AP Pelvis Knee L 4V CLINICAL IMPRESSION CHRONIC ARTHRITIS OF THE LEFT HIP, LEFT KNEE AND LEFT ANKLE DUE TO OSTEOARTHRITIS 3 of 4 Visit Overview MUSCLE STRAIN OF THE LOWER BACK SPRAIN OF THE ILIOFEMORAL LIGAMENT OF THE LEFT HIP, LATERAL COLLATERAL LIGAMENT OF THE LEFT KNEE AND ANTERIOR TALO-FIBULAR LIGAMENT OF THE LEFT ANKLE 4 of 4 Normal [facility] ED VITALS FLOW SHEETon 05-02 ED VITALS FLOW SHEET Vitals Vital Sign Flow Sheet [address] [place] [address] [id number] 04/28/2024 Patient: ELA ESTRADA Sex: Female : 1940 Age: 83y Measurements Wt: 77.1 kg, Ht/Napoleon: 62.0 in, BMI: 31.09 Measured Time BP MAP HR RR O2Sat ETCO2 Temp Pain GCS RTS 02:49 04/29/2024 16 6 02:47 04/29/2024 131/65 87 61 02:45 04/29/2024 130/65 87 72 16 95% 6 02:03 04/29/2024 65 92% 01:58 04/29/2024 63 96% 01:53 04/29/2024 65 96% 01:48 04/29/2024 64 99% 01:43 04/29/2024 63 85% 01:38 04/29/2024 64 98% 01:34 04/29/2024 135/62 86 62 01:33 04/29/2024 62 98% 01:28 04/29/2024 65 92% 01:23 04/29/2024 63 97% 01:18 04/29/2024 62 97% 01:13 04/29/2024 62 98% 1 of 2 Vitals Measured Time BP MAP HR RR O2Sat ETCO2 Temp Pain GCS RTS 01:09 04/29/2024 150/64 92 61 00:03 04/29/2024 67 98% 23:58 04/28/2024 60 96% 23:53 04/28/2024 59 98% 23:48 04/28/2024 57 100% 23:43 04/28/2024 58 99% 23:38 04/28/2024 58 98% 23:35 04/28/2024 217/88 130 56 23:27 04/28/2024 16 8 20:09 04/28/2024 128/63 85 57 16 96% 98.5 F 8 2 of 2 Normal [facility] ANKLE COMPLETE LTon 04-29-20 24 ANKLE COM[address] [address] Patient: ELA ESTRADA Phone#: : 1940 Age: 83 Gender: F Pt. Type: ER Account: [id number] Location: 052 Ordering: BETTY MURGUIA Exam Date: 04/29/2024/0:42 Family Phys: BUTROS LATOUF Charge Code: 930502 Physician: [place] Order #: [id number] Dose#: PROCEDURE: X-RAY ANKLE COMPLETE LT MIN 3 VIEWS COMPARISON: None. INDICATIONS: Falling injury. FINDINGS: BONES: The bones of the ankle are osteopenic. Calcaneal spur and enthesophyte are present. Degenerative changes present at the metatarsal tarsal joint. SOFT TISSUES: Negative. No visible soft tissue swelling. EFFUSION: None visible. OTHER: Negative. CONCLUSION: 1. There is no evidence of acute abnormality. Dictated by: Arleth Casiano MD on 04/29/2024 at 9:18 Approved by: Arleth Casiano MD on 04/29/2024 at 9:19 Normal [facility] CT LUMBAR W/O CONTRASTon CT LUMBAR W/O CONTRAST [place] [address] Patient: ELA ESTRADA Phone#: : 1940 Age: 83 Gender: F Pt. Type: ER Account: [id number] Location: 052 Ordering: BETTY MURGUIA Exam Date: 04/29/2024/0:27 Family Phys: BUTROS LATOUF Charge Code: 780452 Physician: [place] Order #: [id number] Dose#: 24.70 mGy PROCEDURE: CT LUMBAR SPINE WITHOUT CONTRAST COMPARISON: None. INDICATIONS: Falling injury. TECHNIQUE: After obtaining the patient's consent, multi-planar CT images were created without intravenous contrast material. All CT scans at this facility use dose modulation, iterative reconstruction, and/or weight based dosing when appropriate to reduce radiation dose to as low as reasonably achievable. IV CONTRAST: No IV contrast used,ml TOTAL DOSE: 24.70 CTDIvol(mGy) FINDINGS: PARASPINAL AREA: Normal with no visible mass. Aortic calcification is present. Right renal cyst is present. Sigmoid diverticula are present. BONES: Degenerative changes of the spine are present. Disc space narrowing is most marked at L1-2 and L5-S1. LUMBAR DISC LEVELS: L1-L2: Disc space narrowing is present. There is minimal retrolisthesis. There is mild bilateral foraminal impingement greater on the right. L2-L3: No significant disc/facet abnormality, spinal stenosis, or foraminal stenosis. L3-L4: No significant disc/facet abnormality, spinal stenosis, or foraminal stenosis. L4-L5: Bony hypertrophy is present at the articular facettes. There is mild bilateral foraminal narrowing. L5-S1: Disc space narrowing is present. Endplate osteophytes are present with narrowing of the foramina bilaterally. CONCLUSION: 1. Degenerative changes are present. There is no evidence of acute abnormality. Continued Report - Page 2 of 2 Patient: ELA ESTRADA Magdalena Phone#: : 1940 Age: 83 Gender: F Pt. Type: ER Account: [id number] Location: 052 Ordering: BETTY MURGUIA Exam Date: 04/29/2024/0:27 Family Phys: GORDO COOPER Charge Code: [id number] Physician: [place] Order #: [id number] Dose#: 24.70 mGy Dictated by: Arleth Casiano MD on 04/29/2024 at 9:24 Approved by: Arleth Casiano MD on 04/29/2024 at 9:29 Normal [facility] HIP COMPLETE LT MIN 2 VIEWS W/PELVISon 04-29-2024 HIP COMPLETE LT MIN 2 VIEWS W/PELVIS [place] [address] Patient: ELA ESTRADA Magdalena Phone#: : 1940 Age: 83 Gender: F Pt. Type: ER Account: [id number] Location: 052 Ordering: BETTY MURGUIA Exam Date: 04/29/2024/0:55 Family Phys: GORDO COOPER Charge Code: 012787 Physician: [place] Order #: [id number] Dose#: PROCEDURE: X-RAY HIP LT COMPLETE MIN 2 VIEWS W/PELVIS COMPARISON: None. INDICATIONS: Falling injury. FINDINGS: BONES: Mild degenerative changes the lower lumbar spine and both hips are present. There is no evidence of acute bone abnormality. SOFT TISSUES: Negative. No visible soft tissue swelling. EFFUSION: None visible. OTHER: Negative. CONCLUSION: 1. There is no evidence of acute abnormality. Dictated by: Arleth Casiano MD on 04/29/2024 at 9:20 Approved by: Arleth Casiano MD on 04/29/2024 at 9:21 Normal [facility] KNEE COMPLETE LT MIN 4 VIEWS on 04-29-2024 KNEE COMPLETE LT MIN 4 VIEWS [place] [address] Patient: ELA ESTRADA Phone#: : 1940 Age: 83 Gender: F Pt. Type: ER Account: [id number] Location: 052 Ordering: BETTY MURGUIA Exam Date: 04/29/2024/0:48 Family Phys: GORDO COOPER Charge Code: [id number] Physician: [place] Order #: [id number] Dose#: PROCEDURE: X-RAY KNEE LT COMPLETE 4 VIEWS COMPARISON: None. INDICATIONS: Falling injury. FINDINGS: BONES: Moderate degenerative changes of the knee are present. There is narrowing of the lateral compartment. Osteophytes are present at the lateral tibial plateau and femoral condyle. SOFT TISSUES: Negative. No visible soft tissue swelling. EFFUSION: None visible. OTHER: Negative. CONCLUSION: No acute disease. Dictated by: Arleth Casiano MD on 04/29/2024 at 9:19 Approved by: Arleth Casiano MD on 04/29/2024 at 9:20 Normal [facility] CNPErika 04-26-2024 [facility] ELA ESTRADA ([id number]) 1940 F U[place] Date Time Provider Department 04/26/24 RELL NASH [facility] During your visit today, we recorded the following information about you: Clarissa Santiago 04/26/2024 12:53 PM Signed Patient left a voicemail stating that at her appointment Rell was to send in a script for Xarelto 20 mg daily 30 day refill [facility] 04/26/2024 1:30 PM Signed This was sent in 04/16/24. Patient was notified. Allergies As of Date: 04/26/2024 Noted Allergy Reaction AMOXICILLIN 05/03/2010 8 - GI Upset CODEINE 09/19/2005 1 - Mental Status Change DEMEROL (MEPERIDINE HCL) 05/03/2010 16 - Unknown DOXYCYCLINE 10/15/2011 16 - Unknown MORPHINE 09/19/2005 5 - Intolerance Comments: kept getting sicker and sicker with it. Tolerates fentanyl and dilaudid. TZKAAMO-SKZ-KWN REDUCTASE INHIBIT*05/03/2010 16 - Unknown ULTRAM (TRAMADOL HCL) 05/03/2010 16 - Unknown VICODIN (HYDROCODONE-ACETAMINOPHE*1 11 - Vomiting Date Reviewed: 04/16/2024 Reviewed by: Carly Marcial MA - Fully Assessed Reason for Visit: Refill Request [94] Prescriptions as of 04/26/2024 - levothyroxine (SYNTHROID) 88 mcg tablet Take 88 mcg by mouth every morning. - LINZESS 145 mcg capsule Take 145 mcg by mouth every morning. - ProAir RespiClick 90 mcg/actuation breath activated Inhale 2 Puffs as instructed every 4 hours as needed for wheezing/shortness of breath. - cyanocobalamin (VITAMIN B-12) 1,000 mcg tab Take 1,000 mcg by mouth once daily. - VITAMIN B COMPLEX ORAL Take 1 tablet by mouth once daily. - red yeast/Q10/om3/dha/epa/fish (RED OMEGA ORAL) Take 1 tablet by mouth once daily. - ubidecarenone (CO Q-10 ORAL) Take 1 tablet by mouth once daily. - rivaroxaban (XARELTO) 20 mg tablet Take 1 tablet by mouth daily with dinner. - mirabegron (MYRBETRIQ) 50 mg Tb24 Take 1 tablet by mouth once daily. - sertraline (ZOLOFT) 50 mg tablet Take 50 mg by mouth once daily. - losartan (COZAAR) 25 mg tablet Take 25 mg by mouth once daily. - ALPRAZolam (XANAX) 0.5 mg tablet Take 0.25 mg by mouth three times daily as needed. - budesonide-formoterol (SYMBICORT) 160-4.5 mcg/actuation inhaler Inhale 2 Puffs as instructed twice daily. - azelastine (ASTELIN) 0.1% nasal spray Use 1 [place] in each nostril twice daily. - lansoprazole (PREVACID) 30 mg capsule Take 30 mg by mouth once daily. - cholecalciferol (VITAMIN D3) 400 unit tab Take 400 Units by mouth once daily. - montelukast (SINGULAIR) 10 mg tablet Take 10 mg by mouth daily at bedtime. - magnesium oxide (MAG-OX) 400 mg (241.3 mg magnesium) tablet Take 400 mg by mouth twice daily. - amLODIPine (NORVASC) 10 mg tablet Take 5 mg by mouth once daily. - Bifidobacterium infantis (ALIGN ORAL) Take by mouth once daily. - Lactobac no.41/Bifidobact no.7 (PROBIOTIC-10 ORAL) Take by mouth. sometimes - atenolol (TENORMIN) 25 mg tablet Take 1 tablet by mouth once daily - glimepiride (AMARYL) 1 mg tablet Take 0.5 mg by mouth twice daily with meals. - fluticasone (FLONASE) 50 mcg/actuation nasal spray Use 1 [place] in each nostril as needed. in each nostril. Problem List As Of Date 04/26/2024 Noted Resolved PERS HX MALIG SKIN MELANOMA [Z85.820] 10/10/2005 Post-surgical hypothyroidism [E89.0] 04/16/2010 Night sweats [R61] 04/16/2010 Fatigue [R53.83] 04/16/2010 04/02/2024 Urinary incontinence, urge [N39.41] 04/16/2010 Vulvar lesion [N90.89] 04/16/2010 Cystocele [WYO3136] 05/23/2010 Stress incontinence [N39.3] 05/23/2010 Palpitations [R00.2] 10/15/2011 Constipation [K59.00] 07/08/2014 06/05/2023 Postoperative bile leak [K91.89, K83.8] 07/08/2014 05/10/2020 Diverticulitis [K57.92] 07/08/2014 06/05/2023 Hypothyroidism [E03.9] 07/08/2014 07/08/2014 Asthma [J45.909] 07/08/2014 Sleep apnea [G47.30] Abnormal tilt table test [R94.09] 04/10/2018 Allergic rhinitis due to pollen [J30.1] Benign hypertension [I10] Diverticulosis [K57.90] DM II (diabetes mellitus, type II) ([facility]) [E11.9] Fibromyalgia [M79.7] Generalized OA [M15.9] Glaucoma [H40.9] H/O echocardiogram [Z92.89] 04/15/2018 History of stress test [Z92.89] 04/15/2018 Hypothyroid [E03.9] Melanoma ([facility]) [C43.9] Orthostatic hypotension [I95.1] Mixed hyperlipidemia [E78.2] Adjustment disorder [F43.20] COPD (chronic obstructive pulmonary disease) (H* Dizziness [R42] 12/02/2019 04/02/2024 Sinus bradycardia [R00.1] PAF (paroxysmal atrial fibrillation) ([facility]) [I48*12/10/2022 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 Christine 04-16-2024 [facility] ELA ESTRADA ([id number]) 1940 F U[place] Date Time Provider Department 04/16/24 1:20 PM RELL NAS[facility] During your visit today, we recorded the following information about you: Pulse Blood pressure Weight Height 60/minute 158/80 77.1 kg 1.575 m Rell Nash, TUTORIAL LABORATORY SUPERVISOR.CERTIFIED HEARING INSTRUMENT DISPENSER 04/16/2024 1:59 PM Signed [facility] CARDIOLOGY Gordo Cooper MD SUBJECTIVE: Ela Estrada is a 83 year old female who is here today for a follow-up visit. Patient is doing reasonably well from a cardiovascular standpoint. She has intermittent episodes of dizziness which is no different than in the past. She denies syncope or near syncope. She has not felt her heart skipping or racing but at times when she checks her blood pressure she noticed that her heart rate is irregular. She has not noted a fast heart rate. She has not had any problems with chest pain, PND, or edema. PAST MEDICAL HISTORY Diagnosis Date Abnormal tilt table test 04/10/2018 No evidence of orthostatic hypotension. Positive tilt table test in terms of recreation of patient's SX during 80 degree head-up tilt table test with documentation of normal heart rate and blood pressure at time with these symptoms. Negative right and left carotid sinus massage. Positive head up tilt-table test for induction of neurocardiogen Adjustment disorder Allergic rhinitis due to pollen Asthma Benign hypertension COPD (chronic obstructive pulmonary disease) ([facility]) Diverticulosis DM II (diabetes mellitus, type II) ([facility]) Fibromyalgia Generalized OA Glaucoma H/O echocardiogram 04/15/2018 EF 65%, mild MR and TR, PA pressure 38 mm hg H/O echocardiogram 02/26/2023 EF 59?5%, There is a suggestion of asymmetrical some views, but I see no ANITA of MV nor any outflow tract obstruction at rest. 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 Asx sinus node dysfunction documented by short sinus pauses AND episodes of jct escape rhythm after atrial or ventricular ectopy. No conduction system disease. No severe paul. Insignificant atrial and ventricular ectopy. Sx of dizziness, SOB, palpitations, and other symptoms corresponded to NSR without ectopy. History of stress test 02/26/2023 EF 69%, no ischemia or infarction Hypothyroid [facility] current use of anticoagulant Xarelto 20 mg qd Melanoma (HCC) Mixed hyperlipidemia Orthostatic hypotension PAF (paroxysmal atrial fibrillation) (HCC) Newly documented asymptomatic paroxysmal atrial fibrillation by event monitor 12/06/2022 Palpitations Sinus bradycardia Sleep apnea PAST SURGICAL HISTORY Procedure Laterality Date ARTHROSCOPY KNEE DIAGNOSTIC W/WO SYNOVIAL BX SPX Arthroscopy, knee, right CATARACT EXTRACTION HX COLONOSCOPY FLX DX W/COLLJ SPEC WHEN PFRMD 2007 Colonoscopy LAPAROSCOPY SURG CHOLECYSTECTOMY 2014 complicated by bile leak PICC LINE INSERT/CONSULT 07/08/2014 PICC LINE INSERT/CONSULT 07/14/2014 THYROIDECTOMY TOTAL/COMPLETE 2010 TOTAL ABDOMINAL HYSTERECT W/WO RMVL TUBE OVARY Hysterectomy, TK FAMILY HISTORY Problem Relation Age of Onset Heart Mother other (Aortic Anurysm) Mother Stroke Father SOCIAL HISTORY: Social History Tobacco Use Smoking status: Never Passive exposure: Never Smokeless tobacco: Never Vaping Use Vaping status: Never Used Substance Use Topics Alcohol use: No Drug use: Not Currently ALLERGIES: Amoxicillin, Codeine, Demerol [Meperidine Hcl], Doxycycline, Morphine, Lrfxwdq-Hpg-Ubv Reductase Inhibitors, Ultram [Tramadol Hcl], and Vicodin [Hydrocodone-Acetaminophen] CURRENT MEDICATIONS: Current Outpatient Medications Medication Sig levothyroxine (SYNTHROID) 88 mcg tablet Take 88 mcg by mouth every morning. LINZESS 145 mcg capsule Take 145 mcg by mouth every morning. ProAir RespiClick 90 mcg/actuation breath activated Inhale 2 Puffs as instructed every 4 hours as needed for wheezing/shortness of breath. cyanocobalamin (VITAMIN B-12) 1,000 mcg tab Take 1,000 mcg by mouth once daily. VITAMIN B COMPLEX ORAL Take 1 tablet by mouth once daily. red yeast/Q10/om3/dha/epa/fish (RED OMEGA ORAL) Take 1 tablet by mouth once daily. ubidecarenone (CO Q-10 ORAL) Take 1 tablet by mouth once daily. rivaroxaban (XARELTO) 20 mg tablet Take 1 tablet by mouth daily with dinner. mirabegron (MYRBETRIQ) 50 mg Tb24 Take 1 tablet by mouth once daily. sertraline (ZOLOFT) 50 mg tablet Take 50 mg by mouth once daily. losartan (COZAAR) 25 mg tablet Take 25 mg by mouth once daily. ALPRAZolam (XANAX) 0.5 mg tablet Take 0.25 mg by mouth three times daily as needed. budesonide-formoterol (SYMBICORT) 160-4.5 mcg/actuation inhaler Inhale 2 Puffs as instructed twice daily. azelastine (ASTELIN) 0.1% nasal spray Use 1 [place] in each nostril twice daily. lansoprazole (PREV (more content not included)... [facility] ECG COMPLETEon 04-16-2024 ECG COMPLETE Ventricular Rate : 6 0 BPM Atrial Rate : 60 BPM P-R Interval : 198 ms QRS Duration : 74 ms Q-T Interval : 420 ms QTC Calculation(Bazett) : 420 ms Calculated P [place] : 56 degrees Calculated R [place] : 5 degrees Calculated T [place] : 22 degrees Normal sinus rhythm Intra -atrial conduction delay Inferior infarct , age undetermined Abnormal ECG When compared with ECG of 26-Feb-2023 11:34, T wave amplitude has increased in Anterior leads Confirmed by MELA DOSS MD ([id number]) on 04/20/2024 3:44:59 PM NAME : ELA ESTRADA PID : [id number] : 1940 Gender : Female Race : ORD : [id number] Procedure Date : Apr 16 2024 13:21:29 Edit Date : Apr 20 2024 15:45:01 Diagnosis: Normal sinus rhythm Intra -atrial conduction delay Inferior infarct , age undetermined Abnormal ECG When compared with ECG of 26-Feb-2023 11:34, T wave amplitude has increased in Anterior leads Confirmed by MELA DOSS MD ([id number]) on 04/20/2024 3:44:59 PM Test Reason : Location : 201 : [facility] Overread By : MELA DOSS MD Edited By : MELA DOSS MD Referred By : , Acquired by : Carly Marcial, [facility] Pulmonary Visit Reporton Pulmonary Visit Report [facility] [place] [address] [place] [address] OFFICE VISIT Date of Service: 04/05/24 MR#: [id number] Acct: [id number] Name: ELA ESTRADA Rep #: [id number] : 1940 Provider: PETE Vidal Age/Sex: 83/F Location: [facility].PMW Status: Signed Assessment and Plan Assessment and Plan (1) Asthma: Status: Chronic Qualifiers: Asthma complication type: uncomplicated Asthma persistence: persistent Asthma severity: moderate Qualified Code(s): J45.40 - Moderate persistent asthma, uncomplicated Plan: Deteriorated. She does not appear to be in exacerbation today. However, symptoms are more prevalent and I believe it is because the patient is not able to properly actuate Symbicort or the albuterol rescue inhaler. For this reason I am going to place her on ProAir Respiclick and Breo. I explained this to the patient. Follow-up in the office in approximately 3 months to evaluate her response to the new therapy. She has been encouraged to contact the office with any new or worsening symptoms in the meantime. No additional testing at this time. She was provided with annual influenza vaccination in the office today. Orders: Orders Influenza Immunization Today J44.9 - Chronic obstructive pulmonary disease, unspecified, J45.40 - Moderate persistent asthma, uncomplicated Medications: New fluticasone furoate-vilanterol 200-25 mcg/dose (Breo Ellipta) after inhalation, rinse mouth with water and spit out 1 inh inhalation QDAY 60 ea 6RF J45.40 - Moderate persistent asthma, uncomplicated albuterol sulfate 90 mcg/actuation (ProAir RespiClick) administer with spacer 2 inhalations inhalation Q4H PRN 1 ea 6RF shortness of breath or wheezing J45.40 - Moderate persistent asthma, uncomplicated Discontinued Fluad [id number] (65 yr up)(PF) 45 mcg (15 mcg x 3)/0.5 mL (flu vac 2019 [id number](PF)) Discontinued Reason: Duplicate Order 0.5 mL IM ONCE 0.5 mL 0RF NS Z23 - Encounter for immunization albuterol sulfate 90 mcg/actuation (Ventolin HFA) Discontinued Reason: Order Changed 2 puffs inhalation Q4H PRN 18 grams 6RF shortness of breath or wheezing budesonide-formoterol 160-4.5 mcg/actuation (Symbicort) administer with spacer, rinse mouth after each use Discontinued Reason: Order Changed 2 puffs inhalation BID 1 ea 6RF Plan Details Follow Up: 3 Months ([facility]) HPI HPI Comments Details: This patient presents to the office today for follow-up of her asthma. She is ambulatory with the use of a cane. She is currently on room air. She has not recently been seen in the ED or urgent care for any respiratory illness. She has not required any antibiotics or prednisone for any breathing problems. She is compliant with Symbicort, usually using 2 puffs twice daily. She does report rinsing her mouth out after each use. She denies any medication side effect such as sore throat or thrush. She has a difficult time actuating the Symbicort and the albuterol due to progressing arthritis of the hands. She is using albuterol daily. She is compliant with Flonase and Nasacort daily. She is also on Singulair daily. She does have shortness of breath on exertion. Currently she has a nonproductive cough. She has wheezing but denies any chest pain or palpitations. She reports occasional chest tightness, however she believes it is related to anxiety. She has been experiencing this off and on over the past 2 years since the passing of her son. She has not had any fever, chills or body aches. Intake Vital Signs 10/03/23 08:05 04/05/24 07:42 Height 5 ft 2.5 in 5 ft 2.5 in Weight: 170 lb 170 lb BMI 30.6 30.6 BP 137/69 H 128/58 H Blood Pressure Location Lt brachial Lt brachial Position Sitting Sitting Respiration 18 18 Pulse 65 62 Pulse Source Monitor Monitor Temp 95.3 F L 96.6 F L Temperature Source Temporal Artery Temporal Artery Pulse Oximetry (%) 97 99 Oxygen Delivery Method room air room air Intake Visit Reasons: 6 M FU Chief Complaint: cough, SOB, and difficulty breathing DME Vendor: NA Accompanied by: Self Allergies acetaminophen (From Vicodin) Allergy (Unknown, Verified 04/05/24 13:31) Unknown amoxicillin Allergy (Unknown, Verified 04/05/24 13:31) Unknown codeine Allergy (Unknown, Verified 04/05/24 13:31) NEEDS FOLLOW-UP hydrocodone (From Vicodin) Allergy (Unknown, Verified 04/05/24 13:31) Unknown morphine Allergy (Unknown, Verified 04/05/24 13:31) Unknown Medications ???Medication ???Instructions ???Recorded ???Confirmed ???Type atorvastatin 40 mg tablet 40 mg PO QDAY 11/11/17 04/05/24 History fenofibrate 54 mg tablet 54 mg PO QDAY 11/11/17 04/05/24 History hydrochlorothiazide 12.5 mg tablet 12.5 mg PO QAM 11/11/17 04/05/24 History lansoprazole 30 mg capsul (more content not included)... Normal [facility] 03-08-2024 [facility] Telephone (GYURWP) ELA ESTRADA ([id number]) 1940 F [place] Date Time Provider Department 03/08/24 [facility] YAJAIRA ALONSO During your visit today, we recorded the following information about you: Aracely Velez MA 03/08/2024 3:52 PM Signed Notification from [employer] that Myrbetriq 50 mg was requiring prior authorization. Clinical information entered into [employer] auth form, medication approved, call to pharmacy and left message on voicemail that medication was approved. Allergies As of Date: 03/08/2024 Noted Allergy Reaction AMOXICILLIN 05/03/2010 8 - GI Upset CODEINE 09/19/2005 1 - Mental Status Change DEMEROL (MEPERIDINE HCL) 05/03/2010 16 - Unknown DOXYCYCLINE 10/15/2011 16 - Unknown MORPHINE 09/19/2005 5 - Intolerance Comments: kept getting sicker and sicker with it. Tolerates fentanyl and dilaudid. [id number] REDUCTASE INHIBIT*05/03/2010 16 - Unknown ULTRAM (TRAMADOL HCL) 05/03/2010 16 - Unknown VICODIN (HYDROCODONE-ACETAMINOPHE*1 11 - Vomiting Date Reviewed: 12/06/2022 Reviewed by: Lulu Garza MA - Fully Assessed Prescriptions as of 03/08/2024 - rivaroxaban (XARELTO) 20 mg tablet Take 1 tablet by mouth daily with dinner. - mirabegron (MYRBETRIQ) 50 mg Tb24 Take 1 tablet by mouth once daily. - predniSONE 5 mg DsPk Take by mouth. - linaCLOtide (LINZESS) 72 mcg capsule Take 1 capsule by mouth once daily. Administer on an empty stomach. Swallow whole; DO NOT crush or chew. - sertraline (ZOLOFT) 50 mg tablet Take 50 mg by mouth once daily. - losartan (COZAAR) 25 mg tablet Take 25 mg by mouth once daily. - ALPRAZolam (XANAX) 0.5 mg tablet Take 0.25 mg by mouth three times daily as needed. - budesonide-formoterol (SYMBICORT) 160-4.5 mcg/actuation inhaler Inhale 2 Puffs as instructed twice daily. - azelastine (ASTELIN) 0.1% nasal spray Use 1 [place] in each nostril twice daily. - lansoprazole (PREVACID) 30 mg capsule Take 30 mg by mouth once daily. - cholecalciferol (VITAMIN D3) 400 unit tab Take 400 Units by mouth once daily. - montelukast (SINGULAIR) 10 mg tablet Take 10 mg by mouth daily at bedtime. - magnesium oxide (MAG-OX) 400 mg (241.3 mg magnesium) tablet Take 400 mg by mouth twice daily. - aspirin, enteric coated (ASPIRIN, ENTERIC COATED) 81 mg EC tablet Take 81 mg by mouth once daily. - amLODIPine (NORVASC) 10 mg tablet Takes 5 or 10mg daily depending on BP - Bifidobacterium infantis (ALIGN ORAL) Take by mouth once daily. - Lactobac no.41/Bifidobact no.7 (PROBIOTIC-10 ORAL) Take by mouth. sometimes - atenolol (TENORMIN) 25 mg tablet Take 1 tablet by mouth once daily - levothyroxine (SYNTHROID) 100 mcg tablet Take 1 tablet by mouth once daily. - glimepiride (AMARYL) 1 mg tablet Take 0.5 mg by mouth twice daily with meals. - fluticasone (FLONASE) 50 mcg/actuation nasal spray Use 1 [place] in each nostril as needed. in each nostril. 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] 04/16/2010 Night sweats [R61] 04/16/2010 Fatigue [R53.83] 04/16/2010 Urinary incontinence, urge [N39.41] 04/16/2010 Vulvar lesion [N90.89] 04/16/2010 Cystocele [[id number]] 05/23/2010 Stress incontinence [N39.3] 05/23/2010 Palpitations [R00.2] 10/15/2011 Constipation [K59.00] 07/08/2014 06/05/2023 Postoperative bile leak [K91.89, K83.8] 07/08/2014 05/10/2020 Diverticulitis [K57.92] 07/08/2014 06/05/2023 Hypothyroidism [E03.9] 07/08/2014 07/08/2014 Asthma [J45.909] 07/08/2014 Sleep apnea [G47.30] Abnormal tilt table test [R94.09] 04/10/2018 Allergic rhinitis due to pollen [J30.1] Benign hypertension [I10] Diverticulosis [K57.90] DM II (diabetes mellitus, type II) (HCC) [E11.9] Fibromyalgia [M79.7] Generalized OA [M15.9] Glaucoma [H40.9] H/O echocardiogram [Z92.89] 04/15/2018 History of stress test [Z92.89] 04/15/2018 Hypothyroid [E03.9] Melanoma (HCC) [C43.9] Orthostatic hypotension [I95.1] Mixed hyperlipidemia [E78.2] Adjustment disorder [F43.20] COPD (chronic obstructive pulmonary disease) (H* Dizziness [R42] 12/02/2019 Sinus bradycardia [R00.1] PAF (paroxysmal atrial fibrillation) (HCC) [I48*12/10/2022 History of cardiac monitoring [Z92.89] 12/06/2022 [facility] current use of anticoagulant [Z79.01] 06/05/2023 Encounter Status:Closed by ARACELY VELEZ on 03/08/24 Normal [facility] CNPNon 07-21-2023 CNPN Telephone (GYURWP) ELA ESTRADA ([id number]) 1940 F UPA Date Time Provider Department 07/21/23 YAJAIRA JOHNSON GYURWP During your visit today, we recorded the following information about you: Martine Trevizo 07/21/2023 2:16 PM Signed Patient called in requesting prescription for Myrbetriq to her [facility] pharmacy in [facility]. She also wanted to know if there was someone closer to her that would do the botox injections. Alyx Wright RN 07/21/2023 2:47 PM Signed Pt also asking if there are any providers closer to her home in [place], [place] who can do Botox injections. Refill(s) request: Myrbetriq 50 MG Tablet Extended Release 24 Hour 1 tablet Orally Once a day Request from: Patient Last order: Unknown Last visit: Office visit with provider Dr. Johnson on date 10/01/22 Reason for Appointment 1. 100U 2. Botox Procedure Assessments 1. OAB (overactive bladder) - N32.81 (Primary) Procedures Intravesical Botox Injection Procedure Note The patient was consented for the procedure and all of her questions were answered. The patient was placed in dorsal lithotomy position and prepped and draped in sterile fashion. 100 units of bot ox was injected in .5 cc aliquots divided 10 cc of normal saline used to reconstitute the botox) into the Detrusor muscle while using a flexible cystoscope and an Injetak nee dle. All 20 sites were injected just superior to the trigone. The patient tolerated the procedure well. I personally performed the entire procedure. Procedure Codes 31173 CYSTOSCOPY CHEMODENERVATION J0585 BOTULINUM TOXIN TYPE A PER UNIT [facility] 0023 1145 01 BOTOX EXP 2024 LOT [id number], Units: 100.00 Follow Up 6 Months (Reason: 100 units) Virtual Visit with Dr. Johnson on 05/01/22 Assessments 1. OAB (overactive bladder) - N32.81 (Primary) She is very happy with results from her Botox injection. Treatment 1. OAB (overactive bladder) Notes: Plan to complete Myrbetriq 50 mg as she only has about 5 days left. She would like to see if her symptoms continue to stay improved without use of oral medications. We discussed that if symptoms would return, she can let us know and consider restarting Myrbetriq at lower or same dose. Plan to repeat Botox at 100 units at her 6 month appt. She agrees with plan. Questions answered. Appointment scheduled: No follow-up visit currently scheduled. Action taken: Refill request routed to clinician Alyx Wright RN July 21, 2023 2:42 PM Yajaira Johnson MD 07/21/2023 3:01 PM Signed Please tell her there is a female urologist in [place] who does botox--Jacquelyn Flores. There may be some urologists who go to [place]. She could check with her primary care doctor. I will send in the myrbetriq. Thanks Gracie Berg RN 07/21/2023 3:21 PM Signed Called pt. Pt identified by name and . Name for [place] urologist was given. Pt states she will let office know if she decides to change providers. Pt was also notified of medication refill. Pt was appreciative of call back. Gracie Berg RN Allergies As of Date: 07/21/2023 Noted Allergy Reaction AMOXICILLIN 05/03/2010 8 - GI Upset CODEINE 09/19/2005 1 - Mental Status Change DEMEROL (MEPERIDINE HCL) 05/03/2010 16 - Unknown DOXYCYCLINE 10/15/2011 16 - Unknown MORPHINE 09/19/2005 5 - Intolerance Comments: kept getting sicker and sicker with it. Tolerates fentanyl and dilaudid. [id number] REDUCTASE INHIBIT*05/03/2010 16 - Unknown ULTRAM (TRAMADOL HCL) 05/03/2010 16 - Unknown VICODIN (HYDROCODONE-ACETAMINOPHE*1 11 - Vomiting Date Reviewed: 12/06/2022 Reviewed by: Lulu Garza MA - Fully Assessed Primary Visit Diagnosis:Urge incontinence [N39.41] Order(s):mirabegron (MYRBETRIQ) 50 mg [id number] 1 tablet by mouth once daily.Disp: 30 tabletRfl: 11 Prescriptions as of 07/21/2023 - mirabegron (MYRBETRIQ) 50 mg Tb24 Take 1 tablet by mouth once daily. - XARELTO 20 mg tablet TAKE 1 TABLET BY MOUTH ONCE DAILY WITH DINNER - predniSONE 5 mg DsPk Take by mouth. - linaCLOtide (LINZESS) 72 mcg capsule Take 1 capsule by mouth once daily. Administer on an empty stomach. Swallow whole; DO NOT crush or chew. - sertraline (ZOLOFT) 50 mg tablet Take 50 mg by mouth once daily. - losartan (COZAAR) 25 mg tablet Take 25 mg by mouth once daily. - ALPRAZolam (XANAX) 0.5 mg tablet Take 0.25 mg by mouth three times daily as needed. - budesonide-formoterol (SYMBICORT) 160-4.5 mcg/actuation inhaler Inhale 2 Puffs as instructed twice daily. - azelastine (ASTELIN) 0.1% nasal spray Use 1 [place] in each nostril twice daily. - lansoprazole (PREVACID) 30 mg capsule Take 30 mg by mouth once daily. - cholecalciferol (VITAMIN D3) 400 unit tab Take 400 Units by mouth once daily. - montelukast (SINGULAIR) 10 mg tablet Take 10 mg by mouth daily at bedtime. - magnesium oxide (MAG-OX) 400 mg (2 (more content not included)... Normal [facility] PTH, [place] 06-08-2021 PTH, Intact 104 pg/mL High 15-65 [facility] Comment on above: Performed By: #### L DLDCT #### [facility] Routine Lab [address], [place] [address] Calcium, Ionizedon 1 Calcium [Moles/Vol] 1.32 mmol/L High 1.08-1.30 [facility] Comment on above: Performed By: #### L DLDCT #### [facility] Routine Lab [address], [place] [address] Calcium, Ionized 1.37 mmol/L High 1.08-1.30 [facility] Reference Lab Comment on above: Performed By: #### L DLDCT #### [facility] [place] Routine Lab [address], [place] [address] Hemoglobin A1con 06-07-2021 Glucose [Mass/Vol] 154 mg/dL Normal [facility] Reference Lab Comment on above: Performed By: #### L DLDCT #### [facility] [place] Routine Lab [address], [place] [id number] HbA1c (Bld) [Mass fraction] 7.0 % High 4.3-5.6 [facility] Comment on above: Performed By: #### L DLDCT #### [facility] [place] Routine Lab [address], [place] [address] LDL-Chol, Directon 1 LDL-Chol, Direct 158 mg/dL High <100 [facility] Comment on above: Performed By: #### L DLDCT #### [facility] [place] Routine Lab [address], [place] [id number] VLDL Cholesterol NOTI Normal <30 [facility] Comment on above: Performed By: #### L DLDCT #### [facility] [place] Routine Lab [address], [place] [address] Calcium, Ionizedon 1 Calcium [Moles/Vol] 1.32 mmol/L High 1.08-1.30 [facility] Comment on above: Performed By: #### I CA #### [facility] Chemistry [address], [place] [address] #### LDLDCT, HBA1C #### [facility] [place] Routine Lab [address], [place] [phone] Calcium, Ionized 1.36 mmol/L High 1.08-1.30 [facility] Reference Lab Comment on above: Performed By: #### I CA #### [facility] [place] Chemistry [address] [place], [place] [address] #### LDLDCT, HBA1C #### [facility] [place] Routine Lab [address], [place] [address] Hemoglobin A1con 12-03-2020 Glucose [Mass/Vol] 171 mg/dL Normal [facility] Reference Lab Comment on above: Performed By: #### I CA #### [facility] [place] Chemistry [address] [place] [address] #### LDLDCT, HBA1C #### [facility] [place] Routine Lab [address] [place] [address] HbA1c (Bld) [Mass fraction] 7.6 % High 4.3-5.6 [facility] Comment on above: Performed By: #### I CA #### [facility] [place] Chemistry [address] [place] [address] #### LDLDCT, HBA1C #### [facility] [place] Routine Lab [address], [place] [address] LDL-Chol, Directon 1 LDL-Chol, Direct 149 mg/dL High <100 [facility] Reference Lab Comment on above: Performed By: #### I CA #### [facility] [place] Chemistry [address], [place] [address] #### LDLDCT, HBA1C #### [facility] [place] Routine Lab [address], [place] [id number] VLDL Cholesterol NOTI Normal <30 [facility] Comment on above: Performed By: #### I CA #### [facility] [place] Chemistry [address], [place] [address] #### LDLDCT, HBA1C #### [facility] [place] Routine Lab [address], [place] [address] PTH, [place] 12-03-2020 PTH, Intact 99 pg/mL High 15-65 [facility] Comment on above: Performed By: #### P THI #### [facility] [place] Routine Lab [address], [place] [address] Calcium, Ionizedon 1 Calcium [Moles/Vol] 1.29 mmol/L Normal 1.08-1.30 [facility] Comment on above: Performed By: #### P THI, LDLDCT #### [facility] [place] Routine Lab [address] [place] [address] #### ICA #### [facility] [place] Chemistry [address] [place] [phone] Calcium, Ionized 1.34 mmol/L High 1.08-1.30 [facility] Reference Lab Comment on above: Performed By: #### P THI, LDLDCT #### [facility] [place] Routine Lab [address] [place] [phone] #### ICA #### [facility] [place] Chemistry [address] [place] [address] Hemoglobin A1con 10-18-2020 Glucose [Mass/Vol] 169 mg/dL Normal [facility] Reference Lab Comment on above: Performed By: #### H BA1C #### [facility] [place] Routine Lab [address] [place] [phone] HbA1c (Bld) [Mass fraction] 7.5 % High 4.3-5.6 [facility] Comment on above: Performed By: #### H BA1C #### [facility] [place] Routine Lab [address] [place] [address] LDL-Chol, Directon 1 LDL-Chol, Direct 155 mg/dL High <100 [facility] Comment on above: Performed By: #### L DLDCT #### [facility] [place] Routine Lab [address] [place] [address] VLDL Cholesterol NOTI Normal <30 [facility] Comment on above: Performed By: #### L DLDCT #### [facility] [place] Routine Lab [address] [place], [place] [address] PTH, [place] 10-18-2020 PTH, Intact 104 pg/mL High 15-65 [facility] Comment on above: Performed By: #### P THI, LDLDCT #### [facility] [place] Routine Lab [address] [place] [address] #### ICA #### [facility] [place] Chemistry [address] [place] [address] Calcium, Ionizedon Calcium [Moles/Vol] 1.31 mmol/L High 1.08-1.30 [facility] Comment on above: Performed By: #### I CA #### [facility] [place] Chemistry [address] [place] [address] #### HBA1C #### [facility] [place] Routine Lab [address] [place] [address] Calcium, Ionized 1.36 mmol/L High 1.08-1.30 [facility] Reference Lab Comment on above: Performed By: #### I CA #### [facility] [place] Chemistry [address] [place] [address] #### HBA1C #### [facility] [place] Routine Lab [address] [place] [address] Hemoglobin A1con 07-23-2020 Glucose [Mass/Vol] 160 mg/dL Normal [facility] Reference Lab Comment on above: Performed By: #### I CA #### [facility] [place] Chemistry [address] [place] [address] #### HBA1C #### [facility] [place] Routine Lab [address], [place] [address] HbA1c (Bld) [Mass fraction] 7.2 % High 4.3-5.6 [facility] Comment on above: Performed By: #### I CA #### [facility] Chemistry [address], [place] [address] #### HBA1C #### [facility] Routine Lab [address], [place] [address] LDL-Chol, Directon 1 LDL-Chol, Direct 190 mg/dL High <100 [facility] Comment on above: Performed By: #### L DLDCT #### [facility] Routine Lab [address], [place] [address] VLDL Cholesterol NOTI Normal <30 [facility] Comment on above: Performed By: #### L DLDCT #### [facility] [place] Routine Lab [address], [place] [address] PTH, [place] 07-23-2020 PTH, Intact 104 pg/mL High 15-65 [facility] Comment on above: Performed By: #### L DLDCT #### [facility] Routine Lab [address], [place] [address] CDLTILTon 04-10-2018 CDLTILT TILT TABLE TESTDATE OF SERVICE: 04/10/2018INDICATION: Orthostatic presyncope.The patient is a pleasant but anxious 77-year-old white female. She underwent acholecyst[facility] at [facility] in 2014. We do not know the details ofexactly what happened but apparently, she had a complicated procedure and ended upgoing to the [facility]. She describes being at the [facility] and thenback at [facility] for 2 months after her surgery. Ever since the timeof her surgery, she describes having a problem where she becomes dizzy andlightheaded on standing. She has been very physically inactive over the last 4years. She notes that when she gets up to try to do things that she becomes short ofbreath and that she feels her heart beating faster. She has not really experiencesloss of consciousness although she has felt as if she might pass out on multipleoccasions. She describes having an episode soon after her surgery when they got herout of bed, and she was noted to have a low blood pressure. She has assumed that herblood pressure has continued to be low every time she stands up. She describes somechest tightness at times although it is difficult to say what triggers this. Itsounds like most of the time, this chest tightness also occurs when she is trying todo activity and she is feeling her heart beating harder and faster as well as beingshort of breath. She states that when she is resting and especially if she issupine, she feels very good. It is only when she gets up that she feels poorly.MEDICATIONS: At the time of tilt table testing -1. Amlodipine 5 mg daily.2. Atenolol 100 mg daily.3. Levothyroxine 0.112 mg daily.4. Breo Ellipta 1 puff daily.5. Wellbutrin XL 150 mg daily.6. Dymista nasal spray twice daily.7. Glimepiride 2 mg daily.8. Prevacid 30 mg daily.9. Livalo 2 mg p.o. nightly.10. Ativan 0.5 mg daily.11. MiraLAX 17 g daily.12. Singulair 10 mg daily.13. Topiramate 100 mg twice daily.14. Tradjenta 5 mg daily.15. Ventolin inhaler 2 puffs every 6 hours p.r.n. as needed.PROCEDURE: The patient came to the cardiac diagnostics lab in the fasting nonsedatedstate on the afternoon of April 10, 2018. The [facility]. She was secured to the table with Velcro straps for safety. Noninvasiveblood pressure and ECG monitoring were instituted. The patient's heart rate [facility] PATIENT NAME: MINI ESTRADA L132Reinaldo Beatrice Martin [facility] REC #: [id number], [place] [id number] DATE:DISCHARGE DATE:ATTENDING PHY: Mela Doss [facility] TABLE EVALUATION REPORTsupine ranged from 67 to 68 beats per minute, and her blood pressure ranged ebop118/74 to 147/68 mmHg.The patient was advanced to a 30-degree head of tilt position for 2 minutes. Duringthis time, the patient's heart rate was 70 beats per minute, and the blood pressurewas 173/88 mmHg. The patient was asymptomatic.The patient was then advanced to a 45-degree had of tilt position for 2 minutes.During this time, the patient's heart rate was 70 beats per minute, and the bloodpressure was 150/98 mmHg. The patient was asymptomatic. The patient was thenadvanced to an 80-degree head of tilt position for 30 minutes. Soon after beingplaced upright, she complained of not feeling well and being dizzy and lightheaded.She was complaining of generally just not feeling well as well as back pain,weakness, and numbness of her legs and arms. There was 1 blood pressure recorded at90/56, but this was incorrect. The patient had a strong pulse at this time. I wasable to palpate the patient's pulse throughout, and her pulse was nice and strong.Once the blood pressure cuff was fixed, we had normal blood pressures. During this30 minutes of head-up tilt, she had a heart rate that ranged from 75 to 86 beats perminute, and her blood pressure ranged from 140 over palpation to 163/90 mmHg.The patient remained in an 80-degree head-up tilt position, and right and leftcarotid sinus massage was performed. The patient had no sinus slowing or AV block.She had a normal response to both right and left carotid massage.The patient was then returned to the supine position. The patient was then given 0.4mg of sublingual nitroglycerin. Initially, her supine blood pressure was 149/82mmHg. After sublingual nitroglycerin, her blood pressure dropped down 121/87 mmHgwith a heart rate of 76 beats per minute. The patient was then placed in [id number] head-up tilt position. The patient was upright for 2 minutes and 45seconds. Initially, the automatic cuff was having difficulty getting a bloodpressure reading. She was complaining of being dizzy and lightheaded and feltpoorly. We had a palpable blood pressure at 85 mmHg. She subsequently progressed toloss of consciousness. She had no palpable pulse. She had a heart rate that droppeddown in the 30 to 35-beat per minute range. She had sinus beats and then some shortsinus pauses and then some junctional beats. This bradycardia was actuallydocumented after she was returned to the supine position, and it did not last verylong.The patient's blood pressure once supine came up nicely to the normal range andranged from 110/67 to 142 over palpation. The heart rate was in the 60s or low 70s.SUMMARY:1. No evidence of orthostatic hypotension in the baseline state.2. No evidence of neurocardiogenic (vasovagal) syncope in the baseline state minutes of 80-degree head-up tilt table testing.3. Positive tilt table test in terms of re-creation of the patient's spontaneoussymptoms during 80-degree head-up tilt table testing with documentation of normalheart rate and blood pressure at the time of these symptoms.4. Negative response to right and left carotid sinus massage.[facility] PATIENT NAME: MINI ESTRADA L1Chal[address] [facility] MEDICAL REC #: [id number], [place] [address] DATE:DISCHARGE DATE:ATTENDING PHY: Mela Doss MDTILElda TABLE EVALUATION REPORT5. Positive head-up tilt table test for the induction of neurocardiogenic(vasovagal) syncope during 80-degree head-up tilt table testing after sublingualnitroglycerin provocation.COMMENT: We did actually cause a vasovagal episode after sublingual nitroglycerin.However, the patient had severe symptoms and was complaining vigorously about feelingdizzy, lightheaded, and horrible when we know that she had normal heart rate andblood pressure. The patient does not appear to have any major propensity toorthostatic hypotension at this time. It appears that she has normal response of herheart rate and blood pressure to upright posture. While we could induce vasovagalsyncope, I do not think this is the cause of her symptoms. Most likely, it seems tome that there is a bit of a supratentorial overlay here. I think that after thepatient's serious illness after her surgery, she became frightened by the fact thatshe initially had problems with orthostasis. She then became afraid to do physicalactivity and became very deconditioned. I think that a lot of the symptoms that shedescribes are likely due to deconditioning. At this point, however, we have noreason not to tell her to proceed with physical therapy and attempts to improve herlevel of physical condition. The patient has a stress test and an echocardiogram aswell as a 30-day monitor ordered. I think that for completeness sake, we should goahead with these to try to make sure that we are not missing anything. Still I thinkthat at this point, and assuming that her other tests are unremarkable, that it isgoing to be okay for her to pursue more vigorous physical activity. Whether thiswould take the form of inpatient rehabilitation versus rehabilitation therapyservices at the hospital is uncertain. I doubt that she would respond well toin-home physical therapy. ____Mela Doss MD, FACP, FACC, [facility]/[id number]: 04/10/2018 16:04DT: 04/10/2018 19:17SSI File#: [id number] #: [id number]: NeuroCareCC: Mela Doss MD, FACCC: Ketty Moon [facility] PATIENT NAME: MINI ESTRADA [facility] MEDICAL REC #: [id number], [place] [address] DATE:DISCHARGE DATE:ATTENDING PHY: Mela Doss MDTILT TABLE EVALUATION REPORT Normal [facility] TILT TABLE EVALUATION REPORT This is a preliminary report only, as the practitioner review and authentication has not occurred. Normal [facility] OUTSIDE VENDOR CARDIAC OUTPA TIENT TELEMETRY [facility] Vital Signs Date Time Vital Sign Value Performing Clinician Faci lity 01-27-2025 14:26-040 Body height 158.[address] Gordo Cooper MD Work Phone: [facility] 01-27-2025 14:040 Body mass index (BMI) [Ratio] 30.7 kg/m2 Dr. Gordo Cooper MD Work Phone: [facility] 01-27-2025 14:0400 Body weight 77.[address] Gordo Cooper MD Work Phone: [facility] 01-27-2025 14:26-0400 Diastolic blood pressure 74 mm[Hg] Dr. Gordo Cooper MD Work Phone: [facility] 01-27-2025 14:26-0400 Heart rate 71 /min Dr. Gordo Cooper MD Work Phone: [facility] 01-27-2025 14:26-0400 SaO2% (BldA) [Mass fraction] 97 % Dr. Gordo Cooper MD Work Phone: [facility] 01-27-2025 14:26-0400 Systolic blood pressure 117 mm[Hg] Dr. Gordo Cooper MD Work Phone: 4([phone] [place] [address] 12-22-2024 14:20-0400 Body height 158.[address] Gordo Cooper MD Work Phone: [phone] [place] [address] 12-22-2024 14:20-0400 Body mass index (BMI) [Ratio] 31.5 kg/m2 Dr. Gordo Cooper MD Work Phone: [facility] 12-22-2024 14:20-0400 Body weight 79.[address] Gordo Cooper MD Work Phone: [facility] 12-22-2024 14:20-0400 Diastolic blood pressure 69 mm[Hg] Dr. Gordo Cooper MD Work Phone: [facility] 12-22-2024 14:20-0400 Heart rate 46 /min Dr. Gordo Cooper MD Work Phone: [facility] 12-22-2024 14:20-0400 Respiratory rate 16 /min Dr. Gordo Cooper MD Work Phone: [facility] 12-22-2024 14:20-0400 Systolic blood pressure 170 mm[Hg] Dr. Gordo Cooper MD Work Phone: [phone] [place] [address] 09-08-2024 08:54-0400 Body mass index (BMI) [Ratio] 31.6 kg/m2 Dr. Gordo Cooper MD Work Phone: [facility] 09-08-2024 08:54-0400 Body temperature 97.6 [degF] Dr. Gordo Cooper MD Work Phone: [facility] 09-08-2024 08:54-0400 Body weight 79.[address] Gordo Cooper MD Work Phone: [facility] 09-08-2024 08:54-0400 Diastolic blood pressure 76 mm[Hg] Dr. Gordo Cooper MD Work Phone: [facility] 09-08-2024 08:54-0400 Heart rate 67 /min Dr. Gordo Cooper MD Work Phone: [facility] 09-08-2024 08:54-0400 Respiratory rate 20 /min Dr. Gordo Cooper MD Work Phone: [facility] 09-08-2024 08:54-0400 SaO2% (BldA) [Mass fraction] 97 % Dr. Gordo Cooper MD Work Phone: [facility] 09-08-2024 08:54-0400 Systolic blood pressure 142 mm[Hg] Dr. Gordo Cooper MD Work Phone: [facility] 04-16-2024 13:26-0400 Body height 157.5 cm Rell Nash TUTORIAL LABORATORY SUPERVISOR.CERTIFIED HEARING INSTRUMENT DISPENSER Work Phone: [facility] 04-16-2024 13:26-0400 Body mass index (BMI) [Ratio] 31.09 kg/m2 Rell Nash TUTORIAL LABORATORY SUPERVISOR.CERTIFIED HEARING INSTRUMENT DISPENSER Work Phone: [facility] 04-16-2024 13:26-0400 Body weight 77.11 kg Rell Nash TUTORIAL LABORATORY SUPERVISOR.CERTIFIED HEARING INSTRUMENT DISPENSER Work Phone: [facility] 04-16-2024 13:26-0400 Diastolic blood pressure 80 mm[Hg] Rell Nash TUTORIAL LABORATORY SUPERVISOR.CERTIFIED HEARING INSTRUMENT DISPENSER Work Phone: [facility] 04-16-2024 13:26-0400 Heart rate 60 /min Rell Nash TUTORIAL LABORATORY SUPERVISOR.CERTIFIED HEARING INSTRUMENT DISPENSER Work Phone: [facility] 04-16-2024 13:26-0400 Systolic blood pressure 158 mm[Hg] Rell Nash TUTORIAL LABORATORY SUPERVISOR.CERTIFIED HEARING INSTRUMENT DISPENSER Work Phone: [facility] 11-16-2021 15:21-0400 Body height 158.8 cm Rell Nash TUTORIAL LABORATORY SUPERVISOR.CERTIFIED HEARING INSTRUMENT DISPENSER Work Phone: [facility] 11-16-2021 15:21-0400 Body weight 83.95 kg Rell Nash TUTORIAL LABORATORY SUPERVISOR.CERTIFIED HEARING INSTRUMENT DISPENSER Work Phone: [facility] 11-16-2021 15:21-0400 Diastolic blood pressure 88 mm[Hg] Rell Nash TUTORIAL LABORATORY SUPERVISOR.CERTIFIED HEARING INSTRUMENT DISPENSER Work Phone: [facility] 11-16-2021 15:21-0400 Heart rate 65 /min Rell Nash TUTORIAL LABORATORY SUPERVISOR.CERTIFIED HEARING INSTRUMENT DISPENSER Work Phone: [facility] 11-16-2021 15:21-0400 Systolic blood pressure 136 mm[Hg] Rell Nash TUTORIAL LABORATORY SUPERVISOR.CERTIFIED HEARING INSTRUMENT DISPENSER Work Phone: [facility] Encounters Encounter Date Encounter Type Care Provider Facility Start: 01-27-2025 End: 01-27-[address] Catrachito Reid MD -[facility] Work Phone: Start: 01-27-2025 End: 01-27-2025 ambulatory Catrachito Reid Facility:[facility] Start: 01-27-[address] Eliazar Fischer MD -Cardiovascular Services Work Phone: Start: 12-22-2024 End: 12-22-[address] Eliazar Fischer MD -[facility] Work Phone: Start: 12-22-2024 End: 12-22-[address] Gordo Cooper MD Work Phone: [facility] Work Phone: Start: 09-24-2024 ambulatory BUTROS MD LATOUF [facility] Start: 09-13-2024 [facility] Start: 09-08-2024 End: 09-08-2024 Patient encounter procedure CHEESE TESTER Tiki Harris [facility] Work Phone: Start: 09-08-2024 End: 09-08-2024 ambulatory [facility] Facility:[facility] Start: 09-03-2024 End: 09-03-[address] APRN_CNP Facility:A Start: 06-04-2024 End: 06-04-[address] GORDO COOPER MD Facility:A Start: 04-28-2024 End: 04-29-2024 Emergency department patient [facility] Start: 04-26-2024 End: 04-26-2024 Telephone encounter Rell Nash TUTORIAL LABORATORY SUPERVISOR.CERTIFIED HEARING INSTRUMENT DISPENSER Work Phone: [facility] Comment on above: Refill Request Start: 04-16-2024 End: 04-16-2024 Patient encounter procedure Rell Nash TUTORIAL LABORATORY SUPERVISOR.CERTIFIED HEARING INSTRUMENT DISPENSER Work Phone: [facility] Comment on above: Benign hypertension (Primary Dx); Mixed hyperlipidemia; PAF (paroxysmal atrial fibrillation) (HCC); termite exterminator current use of anticoagulant; Sinus bradycardia; DM II (diabetes mellitus, type II) (HCC); New onset a-fib (HCC) Start: 04-16-2024 End: 04-16-2024 ambulatory RELL NASH Facility:[id number] Start: 04-05-2024 End: 04-05-2024 ambulatory Gordo Sammyvenkata Facility:[facility] Start: 03-26-2024 End: 03-26-2024 Refill Rell Nash TUTORIAL LABORATORY SUPERVISOR.CERTIFIED HEARING INSTRUMENT DISPENSER Work Phone: [facility] Comment on above: Refill Request Start: 03-08-2024 End: 03-08-2024 Telephone encounter Yajaira Johnson MD Work Phone: URO/Gynecology Start: 03-19-2023 Telephone encounter Rell gonzalez TUTORIAL LABORATORY SUPERVISOR.CERTIFIED HEARING INSTRUMENT DISPENSER Work Phone: [facility] Comment on above: Erroneous encounter- disregard Start: 03-04-2023 Telephone encounter eRll gonzalez TUTORIAL LABORATORY SUPERVISOR.CERTIFIED HEARING INSTRUMENT DISPENSER Work Phone: [facility] Comment on above: Results Start: 02-28-2023 Patient encounter procedure [facility] Provider [facility] Department Start: 02-26-2023 ambulatory Anahy Bo Bismark rivera RT(R) Nuclear Medicine Comment on above: Radiology [place] Start: 02-26-2023 Patient encounter procedure Anahy K Edwin RT(R) [facility] Start: 02-26-2023 Telephone encounter Rell gonzalez TUTORIAL LABORATORY SUPERVISOR.CERTIFIED HEARING INSTRUMENT DISPENSER Work Phone: [facility] Comment on above: Results Start: 01-07-2023 Orders Only Mela justin MD Work Phone: [facility] Comment on above: PAF (paroxysmal atri al fibrillation) (HCC) (Primary Dx) Results Start: 11-16-2021 End: 11-16-2021 Patient encounter procedure Rell Nash TUTORIAL LABORATORY SUPERVISOR.CERTIFIED HEARING INSTRUMENT DISPENSER Work Phone: [facility] Comment on above: Benign hypertension (Primary Dx); Orthostatic hypotension; Mixed hyperlipidemia; Palpitations; Sinus bradycardia Start: 04-10-2018 Patient encounter Mela Coleman acility:[facility] Procedures Date Procedure Procedure Detail Performing Clinician Start: 04-16-2024 Ecg routine ecg w/least 12 lds i&r only Rell Nash TUTORIAL LABORATORY SUPERVISOR.CERTIFIED HEARING INSTRUMENT DISPENSER Work Phone: Start: 01-07-2023 Xtrnl mobile cv telemetry w/i&report 30 days Mela Doss MD Work Phone: H/O: hysterectomy History of hysterectomy Dr. Gordo Cooper MD Work Phone: History of cholecystectomy History of cholecystectomy Dr. Gordo Cooper MD Work Phone: History of thyroidectomy History of thyro idectomy Dr. Gordo Cooper MD Work Phone: Plan of Treatment Date Care Activity Detail Author Start: 11-27-2031 Urine microalbumin profile DTaP,Tdap,Td Vaccine (2 - Td or Tdap) [facility] Start: 04-22-2025 End: 04-22-2025 Patient encounter procedure 04/22/2025 1:00 PM EDT Office Visit [facility] [address] [address] Rell Nash, TUTORIAL LABORATORY SUPERVISOR.CERTIFIED HEARING INSTRUMENT DISPENSER [address] [place] [address] 1 year follow up [facility] Comment on above: 1 year follow up Start: 12-22-2024 Evaluation of diagnostic study results [facility] Start: 04-16-2024 End: 04-16-2024 Patient encounter procedure 04/16/2024 1:20 PM EDT Office Visit [facility] [address] [place] [address] Rell Nash, TUTORIAL LABORATORY SUPERVISOR.CERTIFIED HEARING INSTRUMENT DISPENSER [address] [place] [address] check up [facility] Comment on above: check up Start: 02-29-2024 Covid-19 Vaccine ( season) Covid-19 Vaccine ( season) [facility] Start: 02-29-2024 Covid-19 Vaccine ( season) Covid-19 Vaccine ( season) [facility] Start: 02-29-2024 Influenza vaccination Influenza Vacc ine (#1) [facility] Start: 08-12-2023 Hepatitis B screening URINE ALBUMIN:CREATININE RATIO [facility] Start: 06-30-2023 Advance Directive Discussion Advance Directive Discussion [facility] Start: 02-28-2023 [facility] Start: 02-09-2023 Hemoglobin A1c measurement HbA1C [facility] Start: 02-09-2023 Hemoglobin A1c/Hemoglobin.total in Blood HBA1C [facility] Start: 06-30-2022 ADVANCE DIRECTIVE DISCUSSION ADVANCE DIRECTIVE DISCUSSION [facility] Start: 06-30-2022 DEPRESSION ASSESSMENT DEPRESSION ASS ESSMENT [facility] Start: 03-21-2022 Hemoglobin A1c/Hemoglobin.total in Blood HBA1C [facility] Start: 08-15-2021 COVID-19 VACCINE (4 - Moderna series) COVID-19 VACCINE (4 - Moderna series) [facility] Start: 07-18-2021 COVID-19 VACCINE (2 - Moderna series) COVID-19 VACCINE (2 - Moderna series) [facility] Start: 06-30-2021 ADVANCE DIRECTIVE DISCUSSION ADVANCE DIRECTIVE DISCUSSION [facility] Start: 2017 RSV Vaccine (1 - 1-d ose 75+ series) RSV Vaccine (1 - 1-dose 75+ series) [facility] Start: 2008 Pneumococcal Vaccine : 65+ (2 - PCV) Pneumococcal Vaccine: 65+ (2 - PCV) [facility] Start: 2008 Pneumococcal Vaccine : 65+ (2 of 2 - PCV) Pneumococcal Vaccine: 65+ (2 of 2 - PCV) [facility] Start: 2008 PNEUMOCOCCAL: 65+ (2 - PCV) PNEUMOCOCCAL: 65+ (2 - PCV) [facility] Start: 2002 Hepatitis B Vaccine (1 of 3 - Risk 3-dose series) Hepatitis B Vaccine (1 of 3 - Risk 3-dose series) [facility] Start: 2002 RSV Vaccine (1 - 1-d ose 60+ series) RSV Vaccine (1 - 1-dose 60+ series) [facility] Start: 1992 SHINGRIX VACCINE (1 of 2) SHINGRIX VACCINE (1 of 2) [facility] Start: 1961 Urine microalbumin profile [facility] Start: 1960 ANNUAL PCP TEAM RETIREMENT ADMINISTRATOR ELYSIA DISEASE VISIT ANNUAL PCP TEAM CHRONIC DISEASE VISIT [facility] Start: 1960 Anxiety Screening Anxiety Screening [facility] Start: 1960 BP CONTROLLED (<130/80) BP CONTROLLE D (<130/80) [facility] Start: 1960 Depression Screening Depression Scre ening [facility] Start: 1960 Hepatitis B surface antibody level LDL CHOLESTEROL [facility] Start: 1960 SPIROMETRY SPIROMETRY [facility] Start: 1954 Adult depression screening assessment DEPRESSION SCREENING [facility] Start: 1952 3 comp foot exam completed DIABETIC FOOT EXAM [facility] Start: 1952 Diabetic foot examination Diabetic Foot Exam [facility] Start: 1952 Glaucoma screening Dilated Retinal E xam [facility] Start: 1952 Hepatitis B screening URINE ALBUMIN:CREATININE RATIO [facility] Start: 1952 Hepatitis C antibody , confirmatory test DILATED RETINAL EXAM [facility] 24 hour urine calciu m output measurement [facility] ECG B/O W INTERP (ME D OFFICE) ECG B/O W INTERP (MED OFFICE) ECG Routine Benign hypertension Ordered: 11/16/2021 [facility] Work Phone: Comment on above: Ordered: 11/16/2021 ECG COMPLETE ECG COMPLETE ECG Routine PAF (paroxysmal atrial fibrillation) (HCC) 04/16/2024 1:21 PM EDT [facility] Work Phone: [facility] Immunizations Immunization Date Immunization Notes Care Provider Fa cili 04-05-2024 Seasonal trivalent influenza vaccine, adjuvanted, preservative free Dr. Gordo Cooper MD Work Phone: [facility] 2021 influenza virus vacc ine, unspecified formulation Rell Nash TUTORIAL LABORATORY SUPERVISOR.CERTIFIED HEARING INSTRUMENT DISPENSER Work Phone: [facility] 2007 pneumococcal polysaccharide vaccine, 23 valent Rell Nash TUTORIAL LABORATORY SUPERVISOR.CERTIFIED HEARING INSTRUMENT DISPENSER Work Phone: [facility] Payers Date Payer Category Payer Self-pay 2019 Unknown [facility] MEDIBL[employer] ACCESS [id number] 2019-Present [phone] [address] [place] [address] O [id number] 2019 Unknown [id number] 2015 Medicare [id number] 1940 Unknown [id number] 1940 Unknown [id number] 1940 Unknown [id number] 1940 Unknown [id number] 1940 Unknown [id number] Unknown [id number] Unknown [id number] Unknown [id number] Unknown [id number] Unknown [id number] Unknown [id number] Social History Date Type Detail Facility Start: 12-06-2022 End: 10-03-2023 Tobacco smoking status NHIS Never smoked tobacco [facility] Work Phone: Start: 11-16-2021 End: 04-16-2024 Alcohol intake Current non-drinker of alcohol (finding) [facility] Start: 1940 Sex Assigned At Female C [facility] Work Phone: Start: 11-06-2021 End: 11-16-2021 Exposure to SARS-CoV-2 (event) Not sure [facility] Start: 12-06-2022 End: 04-16-2024 Tobacco use and exposure Smokeless tobacco non-user [facility] Work Phone: Start: 12-06-2022 End: 07-11-2023 History of Social function [facility] Start: 12-06-2022 End: 01-07-2023 Tobacco use panel [facility] National Score (1-100), lower number is lower risk 50 [facility] Start: 12-02-2019 Gender identity Identifies as female gender (finding) [facility] Work Phone: Start: 12-02-2019 Sexual orientation Heterosexual (charu snyder) [facility] Work Phone: NEGATED: Highlighted rowStart: NINF History of tobacco use Passive smoker [facility] Medical Equipment Procedure Code Equipment Code Equipment Origin al Text Equipment Identifier Dates Lancets (Accu-Ch ek Fastclix Lancet Drum) [facility] Start: 01-27-2025 Goals Date Patient Goal Desired Activity /State Personal health goal Clinical Notes 07-08-2014 to 12-22-2024 Note Date & Type Note Facility 12-22-2024 Evaluation note Diagnosis Onset Date Resolution Essential (primary) hypertension acute December 22, 2024 2:18pm Hypercholesterolemia acute December 22, 2024 2:18pm Paroxysmal atrial fibrillation acute December 22, 2024 2:18pm Diabetes mellitus acute January 272024 2:19pm Hyperparathyroidism acute January 27, 2025 2:19pm Stage 3b chronic kidney disease acute January 27, 2025 2:19pm [facility] Work Phone: 1(450) 490-407803-12-2025 Evaluation note* Diagnosis Onset Date Resolution Status Admit Date Asthma chronic September 08 1:35pm [employer] [facility] Work Phone: 1(528) 999-798411-03-2024 NoteDischarge Instructions Discharge Summary [address] [address] [id number] 04/28/2024 Patient: ELA ESTRADA Sex: Female : 1940 Age: 83y Thank you for visiting [facility]. You have been evaluated today by Betty Murguia D.O. for the following condition(s): Principal Diagnosis Sprain of the iliofemoral ligament of the left hip, lateral collateral ligament of the left knee and anterior talo-fibular ligament of the left ankle. Muscle strain of the lower back. 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 INSTRUCTIONS Apply ice. Wear elastic wrap as directed. Elevate affected areas above chest level. No strenuous activity. You may walk and bear weight as tolerated. Warnings: GENERAL WARNINGS: Return or contact your physician immediately if your condition worsens or changes unexpectedly, if not improving as expected, or if other problems arise. Prescription Medications: tramadol 50 mg tablet: Take 1 tablet by mouth every six hours as needed for pain, dispense 10 tablet. Refills 0. Pharmacy: [facility] [id number] [place] [address]. Understanding of the discharge instructions verbalized by patient and family. Follow-up with: Parth Cooper MD, [facility], , [address] [facility] [address] [place] [address]. Follow up in five days even if well. Call for an appointment. Reason for referral: evaluation and treatment. Summary of care provided to patient and family. You have been given the following additional information: Knee Sprain Ankle Sprain (Adult) Muscle Strain in the Extremities Osteoarthritis Patient Signature Facility Speech Instructor Date/Time General Instructions with ExitWriter [facility] [address] [place] [address] [phone] 04/28/2024 Patient: ELA ESTRADA Sex: Female : 1940 Age: 83y Thank you for visiting [facility]. You have been evaluated today by Betty Murguia D.O. for the following condition(s): Principal Diagnosis Sprain of the iliofemoral ligament of the left hip, lateral collateral ligament of the left knee and anterior talo-fibular ligament of the left ankle. Muscle strain of the lower back. 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 INSTRUCTIONS 2 of 11 Discharge Instructions Apply ice. Wear elastic wrap as directed. Elevate affected areas above chest level. No strenuous activity. You may walk and bear weight as tolerated. Warnings: GENERAL WARNINGS: Return or contact your physician immediately if your condition worsens or changes unexpectedly, if not improving as expected, or if other problems arise. Prescription Medications: tramadol 50 mg tablet: Take 1 tablet by mouth every six hours as needed for pain, dispense 10 tablet. Refills 0. Pharmacy: [facility] [id number] [place] [address]. Understanding of the discharge instructions verbalized by patient and family. Follow-up with: Parth Cooper MD, [facility], [facility], , [address], [place] [address]. Follow up in five days even if well. Call for an appointment. Reason for referral: evaluation and treatment. Summary of care provided to patient and family. ADDITIONAL INFORMATION 3 of 11 Discharge Instructions Knee Sprain A sprain is an injury to the ligaments or capsule that holds a joint together. There are no broken bones. Most sprains take 3 to 6 weeks to heal. If it a severe sprain where the ligament is completely torn, it can take months to recover. Most knee sprains are treated with a splint, knee immobilizer brace, or elastic wrap for support. Severe sprains may rarely require surgery. Home care Stay off the injured leg as much as possible until you can walk on it without pain. If you have a lot of pain with walking, crutches or a walker may be prescribed. (These can be rented or purchased at many pharmacies and surgical or orthopedic supply stores). Follow your healthcare provider's advice about when to begin putting weight on that leg. Keep your leg elevated to reduce pain and swelling. When sleeping, place a pillow under the injuredleg. When sitting, support the injured leg so it is above heart level. This is very important during thefirst 48 hours. 4 of 11 Discharge Instructions Apply an ice pack over the injured area for 15 to 20 minutes every 3 to 6 hours. You should do thisfor the first 24 to 48 hours. You can make an ice pack by filling a plastic bag that seals at the top with ice cubes a (more content not included)...[facility]10-28-2024 Telephone encounter Note* Telephone Encounter - Carly Marcial MA - 04/26/2024 1:30 PM EDT This was sent in 04/16/24. Patient was notified. [facility]10-28-2024 Miscellaneous Notes* Telephone Encounter - Carly Marcial MA - 04/26/2024 1:30 PM EDT This was sent in 04/16/24. Patient was notified. * Telephone Encounter - Clarissa Santiago - 04/26/2024 12:51 PM EDT Patient left a voicemail stating that at her appointment Rell was to send in a script for Xarelto 20 mg daily 30 day refill with 11 refills called into [facility] Telephone encounter Note * Telephone Encounter - Clarissa Santiago - 04/26/2024 12:51 PM EDT Patient left a voicemail stating that at her appointment Rell was to send in a script for Xarelto 20 mg daily 30 day refill with 11 refills called into [facility]10-18-2024 History of Present illness Narrative* Rell Nash, TUTORIAL LABORATORY SUPERVISOR.CERTIFIED HEARING INSTRUMENT DISPENSER - 04/16/2024 1:20 PM EDT [facility] Gordo Cooper MD SUBJECTIVE: Ela Estrada is a 83 year old female who is here today for a follow-up visit. Patient is doing reasonably well from a cardiovascular standpoint. She has intermittent episodes of dizziness which isno different than in the past. She denies syncope or near syncope. She has not felt her heart skipping or racing but at times when she checks her blood pressure she noticed that her heart rate is irregular. She has not noted a fast heart rate. She has not had any problems with chest pain, PND, or edema. PAST MEDICAL HISTORY Diagnosis Date Abnormal tilt table test 04/10/2018 No evidence of orthostatic hypotension. Positive tilt table test in terms of recreation of patient's SX during 80 degree head-up tilt table test with documentation of normal heart rate and blood pressure at time with these symptoms. Negative right and left carotid sinus massage. Positive head up tilt- table test for induction of neurocardiogen Adjustment disorder Allergic rhinitis due to pollen Asthma Benign hypertension COPD (chronic obstructive pulmonary disease) ([facility]) Diverticulosis DM II (diabetes mellitus, type II) ([facility]) Fibromyalgia Generalized OA Glaucoma H/O echocardiogram 04/15/2018 EF 65%, mild MR and TR, PA pressure 38 mm hg H/O echocardiogram 02/26/2023 EF 59 5%, There is a suggestion of asymmetrical some views, but I see no ANITA of MV nor any outflow tract obstruction at rest. 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 Asx sinus node dysfunction documented by short sinus pauses & episodes of jct escape rhythm after atrial or ventricular ectopy. No conduction system disease. No severe paul. Insignificant atrial and ventricular ectopy. Sx of dizziness, SOB, palpitations, and other symptoms corresponded to NSR without ectopy. History of stress test 02/26/2023 EF 69%, no ischemia or infarction Hypothyroid [facility] current use of anticoagulant Xarelto 20 mg qd Melanoma ([facility]) Mixed hyperlipidemia Orthostatic hypotension PAF (paroxysmal atrial fibrillation) ([facility]) Newly documented asymptomatic paroxysmal atrial fibrillation by event monitor 12/06/2022 Palpitations Sinus bradycardia Sleep apnea PAST SURGICAL HISTORY Procedure Laterality Date ARTHROSCOPY KNEE DIAGNOSTIC W/WO SYNOVIAL BX SPX Arthroscopy, knee, right CATARACT EXTRACTION HX COLONOSCOPY FLX DX W/COLLJ SPEC WHEN PFRMD 2008 Colonoscopy LAPAROSCOPY SURG CHOLECYSTECTOMY 2014 complicated by bile leak PICC LINE INSERT/CONSULT 07/08/2014 PICC LINE INSERT/CONSULT 07/14/2014 THYROIDECTOMY TOTAL/COMPLETE 2010 TOTAL ABDOMINAL HYSTERECT W/WO RMVL TUBE OVARY Hysterectomy, TK FAMILY HISTORY Problem Relation Age of Onset Heart Mother other (Aortic Anurysm) Mother Stroke Father SOCIAL HISTORY: Social History Tobacco Use Smoking status: Never Passive exposure: Never Smokeless tobacco: Never Vaping Use Vaping status: Never Used Substance Use Topics Alcohol use: No Drug use: Not Currently ALLERGIES: Amoxicillin, Codeine, Demerol [Meperidine Hcl], Doxycycline, Morphine, Ajcvkhv-Ioc-Hti Reductase Inhibitors, Ultram [Tramadol Hcl], and Vicodin [Hydrocodone-Acetaminophen] CURRENT MEDICATIONS: Current Outpatient Medications Medication Sig levothyroxine (SYNTHROID) 88 mcg tablet Take 88 mcg by mouth every morning. LINZESS 145 mcg capsule Take 145 mcg by mouth every morning. ProAir RespiClick 90 mcg/actuation breath activated Inhale 2 Puffs as instructed every 4 hours as needed for wheezing/shortness of breath. cyanocobalamin (VITAMIN B-12) 1,000 mcg tab Take 1,000 mcg by mouth once daily. VITAMIN B COMPLEX ORAL Take 1 tablet by mouth once daily. red yeast/Q10/om3/dha/epa/fish (RED OMEGA ORAL) Take 1 tablet by mouth once daily. ubidecarenone (CO Q-10 ORAL) Take 1 tablet by mouth once daily. rivaroxaban (XARELTO) 20 mg tablet Take 1 tablet by mouth daily with dinner. mirabegron (MYRBETRIQ) 50 mg Tb24 Take 1 tablet by mouth once daily. sertraline (ZOLOFT) 50 mg tablet Take 50 mg by mouth once daily. losartan (COZAAR) 25 mg tablet Take 25 mg by mouth once daily. ALPRAZolam (XANAX) 0.5 mg tablet Take 0.25 mg by mouth three times daily as needed. budesonide-formoterol (SYMBICORT) 160-4.5 mcg/actuation inhaler Inhale 2 Puffs as instructed twice daily. azelastine (ASTELIN) 0.1% nasal spray Use 1 [place] in each nostril twice daily. lansoprazole (PREVACID) 30 mg capsule Take 30 mg by mouth once daily. cholecalciferol (VITAMIN D3) 400 unit tab Take 400 Units by mouth once daily. montelukast (SINGULAIR) 10 mg tablet Take 10 mg by mouth daily at bedtime. magnesium oxide (MAG-OX) 400 mg (241.3 mg magnesium) tablet Take 400 mg by mouth twice daily. amLODIPine (NORVASC) 10 mg tablet Take 5 mg by mouth once daily. Bifidobacterium infantis (ALIGN ORAL) Take by mouth once daily. Lactobac no.41/Bifidobact no.7 (PROBIOTIC-10 ORAL) Take by mouth. sometimes atenolol (TENORMIN) 25 mg tablet Take 1 tablet by mouth once daily glimepiride (AMARYL) 1 mg tablet Take 0.5 mg by mouth twice daily with meals. fluticasone (FLONASE) 50 mcg/actuation nasal spray Use 1 [place] in each nostril as needed. in each nostril. No current facility-administered medications for this visit. Review of Systems Constitutional: Positive for fatigue. Negative for activity change and fever. Respiratory: Negative for apnea, cough, chest tightness, shortness of breath, wheezing and stridor. Cardiovascular: Negative for chest pain, palpitations and leg swelling. Gastrointestinal: Negative for abdominal distention, diarrhea and vomiting. Musculoskeletal: Negative for joint swelling, neck pain and neck stiffness. Skin: Negative for color change, pallor and rash. Neurological: Positive for dizziness. Negative for syncope, weakness, light- headedness and numbness. Hematological: Does not bruise/bleed easily. Psychiatric/Behavioral: Negative for agitation, behavioral problems and confusion. The patient is not nervous/anxious. All other systems reviewed and are negative. PHYSICAL EXAMINATION: 04/16/24 1326 BP: 158/80 BP Site: Left Arm BP Position: Sitting Pulse: 60 Weight: 77.1 kg (170 lb) Height: 157.5 cm (5' 2) Last 3 Encounter BP Readings: Date: BP: 12/06/2022 102/82 11/16/2021 136/88 05/11/2020 132/90 Last 3 Encounter Pulse Readings: Date: Pulse: 12/06/2022 67 11/16/2021 65 05/11/2020 68 Last 3 Encounter Wt Readings: Date: Wt: 12/06/2022 80.7 kg (178 lb) 11/16/2021 84 kg (185 lb 1.3 oz) 11/14/2020 89.8 kg (198 lb) Potassium (mmol/L) Date Value 07/18/2014 3.3 Sodium (mmol/L) Date Value 07/18/2014 136 Magnesium (mg/dL) Date Value 07/18/2014 2.1 Creatinine (mg/dL) Date Value 07/18/2014 1.09 BUN (mg/dL) Date Value 07/18/2014 11 Glucose (mg/dL) Date Value 07/18/2014 173 PT INR (no units) Date Value 07/14/2014 1.0 TSH (uU/mL) Date Value 07/06/2014 9.670 Physical Exam Vitals and nursing note reviewed. Constitutional: General: She is not in acute distress. Appearance: Normal appearance. She is not toxic-appearing. HENT: Head: Normocephalic and atraumatic. Nose: Nose normal. Mouth/Throat: Mouth: Mucous membranes are moist. Neck: Vascular: No carotid bruit. Cardiovascular: Rate and Rhythm: Normal rate and regular rhythm. Pulses: Normal pulses. Heart sounds: Normal heart sounds. No murmur heard. No friction rub. No gallop. Pulmonary: Effort: Pulmonary effort is normal. No respiratory distress. Breath sounds: Normal breath sounds. No stridor. No wheezing, rhonchi or rales. Chest: Chest wall: No tenderness. Abdominal: General: Abdomen is flat. There is no distension. Palpations: Abdomen is soft. There is no mass. Tenderness: There is no abdominal tenderness. Musculoskeletal: General: No swelling. Cervical back: Normal range of motion. No muscular tenderness. Right lower leg: No edema. Left lower leg: No edema. Skin: General: Skin is warm and dry. Capillary Refill: Capillary refill takes less than 2 seconds. Coloration: Skin is not jaundiced or pale. Findings: No bruising or rash. Neurological: General: No focal deficit present. Mental Status: She is alert and oriented to person, place, and time. Mental status is at baseline. Motor: No weakness. Gait: Gait normal. Psychiatric: Mood and Affect: Mood normal. Behavior: Behavior normal. Thought Content: Thought content normal. Judgment: Judgment normal. Diagnostic results: EKG: Normal sinus rhythm, 60 bpm, inferior infarct, age undetermined ASSESSMENT/PLAN: 1. Benign hypertension - ICD9: 401.1, ICD10: I10 (primary diagnosis) Target BP 130/80 or less. The pt is on chronic medications. Patient's blood pressure is elevated today. Patient's blood pressure tends to run better on a normal basis. She states there is times when her blood pressure is extremely low. Because she has a history of problems with near-syncope we willnot make any changes to her medications. She will call if her systolic pressure is 145 or greater consistently. 2. Mixed hyperlipidemia - ICD9: 272.2, ICD10: E78.2 Patient is not on lipid-lowering medications. Intolerant to statins. Managed by primary care physician. 3. PAF (paroxysmal atrial fibrillation) (HCC) - ICD9: 427.31, ICD10: I48.0 Patient has a history of atrial fibrillation. The patient is maintaining sinus rhythm in the antiarrhythmic drug-free state. She is on atenolol 25 mg daily. Will plan to continue same medications andmonitor for recurrent atrial fibrillation. 4. [facility] current use of anticoagulant - ICD9: V58.61, ICD10: Z79.01 Patient is on Xarelto 20 mg daily. The pt is not complaining of any signs and symptoms of bleeding.The patient was instructed to call with any problems. 5. Sinus bradycardia - ICD9: 427.89, ICD10: R00.1 Patient has a history of asymptomatic sinus bradycardia. Present on atenolol 25 mg daily. Heart rate by today's EKG is 60 bpm. [facility] NoteHNO ID: [id number] Author: RELL NASH APRN.CERTIFIED HEARING INSTRUMENT DISPENSER Service: ? Author Type: Nurse Practitioner Type: Progress Notes Filed: 04/16/2024 13:59 Note Text: [facility] Gordo Cooper MD SUBJECTIVE: Ela Estrada is a 83 year old female who is here today for a follow-up visit. Patient is doing reasonably well from a cardiovascular standpoint. She has intermittent episodes of dizziness which is no different than in the past. She denies syncope or near syncope. She has not felt her heart skipping or racing but at times when she checks her blood pressure she noticed that her heart rate is irregular. She has not noted a fast heart rate. She has not had any problems with chest pain, PND, or edema. PAST MEDICAL HISTORY Diagnosis Date Abnormal tilt table test 04/10/2018 No evidence of orthostatic hypotension. Positive tilt table test in terms of recreation of patient's SX during 80 degree head-up tilt table test with documentation of normal heart rate and blood pressure at time with these symptoms. Negative right and left carotid sinus massage. Positive head up tilt-table test for induction of neurocardiogen Adjustment disorder Allergic rhinitis due to pollen Asthma Benign hypertension COPD (chronic obstructive pulmonary disease) ([facility]) Diverticulosis DM II (diabetes mellitus, type II) ([facility]) Fibromyalgia Generalized OA Glaucoma H/O echocardiogram 04/15/2018 EF 65%, mild MR and TR, PA pressure 38 mm hg H/O echocardiogram 02/26/2023 EF 59?5%, There is a suggestion of asymmetrical some views, but I see no ANITA of MV nor any outflow tract obstruction at rest. 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 Asx sinus node dysfunction documented by short sinus pauses AND episodes of jct escape rhythm after atrial or ventricular ectopy. No conduction system disease. No severe paul. Insignificant atrial and ventricular ectopy. Sx of dizziness, SOB, palpitations, and other symptoms corresponded to NSR without ectopy. 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 Xarelto 20 mg qd Melanoma ([facility]) Mixed hyperlipidemia Orthostatic hypotension PAF (paroxysmal atrial fibrillation) ([facility]) Newly documented asymptomatic paroxysmal atrial fibrillation by event monitor 12/06/2022 Palpitations Sinus bradycardia Sleep apnea PAST SURGICAL HISTORY Procedure Laterality Date ARTHROSCOPY KNEE DIAGNOSTIC W/WO SYNOVIAL BX SPX Arthroscopy, knee, right CATARACT EXTRACTION HX COLONOSCOPY FLX DX W/COLLJ SPEC WHEN PFRMD 2008 Colonoscopy LAPAROSCOPY SURG CHOLECYSTECTOMY 2015 complicated by bile leak PICC LINE INSERT/CONSULT 07/08/2014 PICC LINE INSERT/CONSULT 07/14/2014 THYROIDECTOMY TOTAL/COMPLETE 2010 TOTAL ABDOMINAL HYSTERECT W/WO RMVL TUBE OVARY Hysterectomy, TK FAMILY HISTORY Problem Relation Age of Onset Heart Mother other (Aortic Anurysm) Mother Stroke Father SOCIAL HISTORY: Social History Tobacco Use Smoking status: Never Passive exposure: Never Smokeless tobacco: Never Vaping Use Vaping status: Never Used Substance Use Topics Alcohol use: No Drug use: Not Currently ALLERGIES: Amoxicillin, Codeine, Demerol [Meperidine Hcl], Doxycycline, Morphine, Bujaicu-Iar-Zxo Reductase Inhibitors, Ultram [Tramadol Hcl], and Vicodin [Hydrocodone-Acetaminophen] CURRENT MEDICATIONS: Current Outpatient Medications Medication Sig levothyroxine (SYNTHROID) 88 mcg tablet Take 88 mcg by mouth every morning. LINZESS 145 mcg capsule Take 145 mcg by mouth every morning. ProAir RespiClick 90 mcg/actuation breath activated Inhale 2 Puffs as instructed every 4 hours as needed for wheezing/shortness of breath. cyanocobalamin (VITAMIN B-12) 1,000 mcg tab Take 1,000 mcg by mouth once daily. VITAMIN B COMPLEX ORAL Take 1 tablet by mouth once daily. red yeast/Q10/om3/dha/epa/fish (RED OMEGA ORAL) Take 1 tablet by mouth once daily. ubidecarenone (CO Q-10 ORAL) Take 1 tablet by mouth once daily. rivaroxaban (XARELTO) 20 mg tablet Take 1 tablet by mouth daily with dinner. mirabegron (MYRBETRIQ) 50 mg Tb24 Take 1 tablet by mouth once daily. sertraline (ZOLOFT) 50 mg tablet Take 50 mg by mouth once daily. losartan (COZAAR) 25 mg tablet Take 25 mg by mouth once daily. ALPRAZolam (XANAX) 0.5 mg tablet Take 0.25 mg by mouth three times daily as needed. budesonide-formoterol (SYMBICORT) 160-4.5 mcg/actuation inhaler Inhale 2 Puffs as instructed twice daily. azelastine (ASTELIN) 0.1% nasal spray Use 1 [place] in each nostril twice daily. lansoprazole (PREVACID) 30 mg capsule Take 30 mg by mouth once daily. cholecalciferol (VITAMIN D3) 400 unit tab Take 400 Units by mouth once daily. montelukast (SINGULAIR) 10 mg tablet Take 10 mg by mouth daily at bedtime. magnesium oxide (MAG-OX) 400 mg (241.3 mg magnesium) tabl (more content not included)...[facility]09-27-2024 Telephone encounter Note* Telephone Encounter - Carly Marcial MA - 03/26/2024 8:18 AM EDT Patient calls requesting refill: Requested Prescriptions Requested Prescriptions Pending Prescriptions Disp Refills rivaroxaban (XARELTO) 20 mg tablet 30 tablet 0 Sig: Take 1 tablet by mouth daily with dinner. @RXAUTHPROV@ Date of last visit: 12/06/22 Phone #: [phone] (home) The patient's preferred pharmacy has been captured for this encounter? yes Carly Marcial MA March 26, 2024 8:18 AM [facility]09-27-2024 Miscellaneous Notes* Telephone Encounter - Carly Marcial MA - 03/26/2024 8:18 AM EDT Patient calls requesting refill: Requested Prescriptions Requested Prescriptions Pending Prescriptions Disp Refills rivaroxaban (XARELTO) 20 mg tablet 30 tablet 0 Sig: Take 1 tablet by mouth daily with dinner. @RXAUTHPROV@ Date of last visit: 12/06/22 Phone #: [phone] (home) The patient's preferred pharmacy has been captured for this encounter? yes Carly Marcial MA March 26, 2024 8:18 AM * Telephone Encounter - Clarissa Santiago - 03/26/2024 8:11 AM EDT Patient left a voicemail stating that she needs a refill on Xarelto 20 mg daily 90 day refill called into [facility]. Does need appointment and I will call her later to get it scheduled. Was last seen 11/2022 [facility] Telephone encounter Note * Telephone Encounter - Clarissa Santiago - 03/26/2024 8:11 AM EDT Patient left a voicemail stating that she needs a refill on Xarelto 20 mg daily 90 day refill called into [facility]. Does need appointment and I will call her later to get it scheduled. Was last seen 11/2022 [facility]-09-[facility] Telephone encounter Note* Telephone Encounter - Aracely Velez MA - 03/08/2024 3:50 PM EDT Notification from [employer] that Myrbetriq 50 mg was requiring prior authorization. Clinical information entered into [employer] auth form, medication approved, call to pharmacy and left message on voicemail that medication was approved. [facility]-09-[facility] Miscellaneous Notes* Telephone Encounter - Aracely Velez MA - 03/08/2024 3:50 PM EDT Notification from [employer] that Myrbetriq 50 mg was requiring prior authorization. Clinical information entered into [employer] auth form, medication approved, call to pharmacy and left message on voicemail that medication was approved. documented in this encounterBu[facility]09-05-2023 Miscellaneous Notes* Telephone Encounter - Lulu Garza MA - 03/04/2023 1:29 PM EDT Pt called and notified per rell echo looks okay, if EF is 59 5% with no significant valvular abnormalities. Pt agreeable * Telephone Encounter - Rell Nash APRN.CNP - 03/04/2023 11:43 AM EDT The patient know, echo looks okay, if EF is 59 5% with no significant valvular abnormalities. documented in this encounterBu[facility]08-31-2023 Miscellaneous Notes* Telephone Encounter - Lulu Garza MA - 02/27/2023 4:06 PM EDT Pt called and notified per rell Blair is fine, she can get that ordered by her center director since they check her cholesterol that time. Pt states vascepa is too expensive for her but she will have center director prescribe her something * Telephone Encounter - Rell Nash APRN.CNP - 02/27/2023 3:56 PM EDT Vascepa is fine, she can get that ordered by her center director since they check her cholesterol that time. * Telephone Encounter - Lulu Garza MA - 02/27/2023 1:56 PM EDT Pt called and notified per rell stress test is good. EF normal at 69% with no ischemia or infarction. Pt agreeable Pt states her diabetic doctor did a lipid panel on her and her cholesterol and triglycerides are high. They want to put her on vascepa but they wanted the pt to check with you to see if you wanted toprescribe it as you had put pt on a cholesterol medication about 8 years ago (pt doesn't remember what it was) pt states she cant take statins due to myalgias. I called her diabetic doctor and they are to fax a copy of the labs to us. * Telephone Encounter - Rell Nash APRN.CNP - 02/26/2023 4:20 PM EDT Let the patient know, stress test is good. EF normal at 69% with no ischemia or infarction. documented in this encounterBucyrus [facility]08-30-2023 History of Present illness Narrative* Anahy Pineda RT(R) - 02/26/2023 12:21 PM EDT RADIOLOGY SERVICE PROGRESS NOTE SERVICE DATE: 02/26/2023 SERVICE TIME: 12:21 PM PATIENT IDENTITY VERIFICATION COMPLETED USING TWO (2) STANDARD IDENTIFIERS: Name and Date of confirmed by patient verbally FALL SCREENING: Has the patient had 2 falls in the last year or 1 fall with injury or currently using an Ambulatory Assistive Device (Walker, Cane, Wheelchair, Crutches, etc.)? No PATIENT GENDER DATA: .female : No status: No ALLERGIES: Reviewed and unchanged MEDICATIONS REVIEWED: No PATIENT RELEVANT IMPLANT DATA REVIEWED: Not Applicable CREATININE: Creatinine Date Value Ref Range Status 07/18/2014 1.09 0.70 - 1.40 mg/dL Final 07/17/2014 1.03 0.70 - 1.40 mg/dL Final 07/16/2014 0.96 0.70 - 1.40 mg/dL Final eGFR-All Other Races Date Value Ref Range Status 07/18/2014 49 . Final Comment: eGFR (Estimated GFR) Units of measure: mL/min/1.73 meters squared eGFR is derived from the reexpressed MDRD Study equation using the following parameters: serum creatinine, age, gender and race. The creatinine assay has been calibrated to be traceable to IDMS. An eGFR <60 mL/min/1.73m2 for >3 months is consistent with chronic kidney disease. Refer to KDOQI guidelines for clinical interpretation. In patients with unstable renal function, e.g. those with acute kidney injury, the eGFR may not accurately reflect actual GFR. eGFR- Date Value Ref Range Status 07/18/2014 60 Final P.O.C.T. RESULTS: N/A February 26, [address] PERFORMED: No IV SITE: Ambulatory: A peripheral IV was started in the Right antecubital site with a Angio cath: 24 gauge. POST EXAM PIV STATUS: Discontinued PROCEDURE TYPE: NM Stress: 13.1 mCi [id number] was administered IV for [facility] at 0930 by [facility] [place] 31.0 mCi [id number] was administered IV for Stress Imaging at 1120 by [facility] [place] ADMINISTRATION TIME: 1120 PATIENT DISCHARGED TO: Ambulatory patient, left [place] department area. A Diagnostic radioactive procedure has taken place, with no further precautions necessary other than routine body substance precautions. More information regarding radiation safety can be found usingthis link: [email or web address] SIGNATURE: RT Arnold(R) PATIENT NAME: Ela Estrada DATE: February 26, 2023 TIME: 12:21 PM PAGER/CONTACT #: [facility] Miscellaneous Notes* Telephone Encounter - Lulu Garza MA - 01/08/2023 3:00 PM EDT Pt called and notified per rell event monitor looks ok. No afib. No severe bradycardia. Symptoms did not correlate with yesenia arrhythmia. pt agreeable * Telephone Encounter - Rell Nash APRN.ZANDER - 01/07/2023 4:29 PM EDT Let the patient know, event monitor looks ok. No afib. No severe bradycardia. Symptoms did not correlate with yesenia arrhythmia. documented in this encounter[facility]20-[facility]22 History of Present illness Narrative* Rell Nash APRN.ZANDER - 11/16/2021 3:[address] [facility] CARDIOLOGY Gordo Cooper MD SUBJECTIVE: Ela Estrada is a 81 year old female who is here today for a follow-up visit. The patient is doing reasonably well from a cardiovascular standpoint. She denies chest pain, palpitations, PND, orthopnea, syncope, or near syncope. Patient complains of chronic shortness of breath. She relates this to her COPD. This is no different than in the past. She states that she is up and around for more than half an hour time, she gets lightheaded and dizzy. She goes and sits down for a few minutes then she is fine. PAST MEDICAL HISTORY Diagnosis Date Abnormal tilt table test 04/10/2018 No evidence of orthostatic hypotension. Positive tilt table test in terms of recreation of patient's SX during 80 degree head-up tilt table test with documentation of normal heart rate and blood pressure at time with these symptoms. Negative right and left carotid sinus massage. Positive head up tilt- table test for induction of neurocardiogen Adjustment disorder Allergic rhinitis due to pollen Asthma Benign hypertension COPD (chronic obstructive pulmonary disease) (HCC) Diastolic dysfunction Diverticulosis DM II (diabetes mellitus, type II) ([facility]) Fibromyalgia Generalized OA Glaucoma H/O echocardiogram 04/15/2018 EF 65%, mild MR and TR, PA pressure 38 mm hg History of stress test 04/15/2018 EF 70%, no ischemia or infarct Hypothyroid Melanoma (HCC) Mixed hyperlipidemia Orthostatic hypotension Palpitations Sinus bradycardia Sleep apnea PAST SURGICAL HISTORY Procedure Laterality Date ARTHROSCOPY KNEE DIAGNOSTIC W/WO SYNOVIAL BX SPX Arthroscopy, knee, right CATARACT EXTRACTION HX COLONOSCOPY FLX DX W/COLLJ SPEC WHEN PFRMD 2007 Colonoscopy LAPAROSCOPY SURG CHOLECYSTECTOMY 2014 complicated by bile leak PICC LINE INSERT/CONSULT 07/08/2014 PICC LINE INSERT/CONSULT 07/14/2014 THYROIDECTOMY TOTAL/COMPLETE 2010 TOTAL ABDOMINAL HYSTERECT W/WO RMVL TUBE OVARY Hysterectomy, TK FAMILY HISTORY Problem Relation Age of Onset Heart Mother other (Aortic Anurysm) Mother Stroke Father SOCIAL HISTORY: Social History Tobacco Use Smoking status: Never Smoker Smokeless tobacco: Never Used Vaping Use Vaping Use: Never used Substance Use Topics Alcohol use: No Drug use: Not Currently ALLERGIES: Amoxicillin, Codeine, Demerol [Meperidine Hcl], Doxycycline, Morphine, Hypgkgd-Fvk-Deu Reductase Inhibitors, Ultram [Tramadol Hcl], and Vicodin [Hydrocodone-Acetaminophen] CURRENT MEDICATIONS: Current Outpatient Medications Medication Sig linaCLOtide (LINZESS) 72 mcg capsule Take 1 capsule by mouth once daily. Administer on an empty stomach. Swallow whole; DO NOT crush or chew. sertraline (ZOLOFT) 50 mg tablet Take 50 mg by mouth once daily. Docusate Sodium 100 mg tab Take by mouth twice daily. losartan (COZAAR) 25 mg tablet Take 25 mg by mouth once daily. ALPRAZolam (XANAX) 0.5 mg tablet Take 0.25 mg by mouth three times daily as needed. icosapent ethyl (VASCEPA) 1 gram Take 1 g by mouth twice daily. budesonide-formoterol (SYMBICORT) 160-4.5 mcg/actuation inhaler Inhale 2 Puffs as instructed twice daily. azelastine (ASTELIN) 0.1% nasal spray Use 1 [place] in each nostril twice daily. lansoprazole (PREVACID) 30 mg capsule Take 30 mg by mouth once daily. cholecalciferol (VITAMIN D-3) 400 unit tab Take 400 Units by mouth once daily. montelukast (SINGULAIR) 10 mg tablet Take 10 mg by mouth daily at bedtime. magnesium oxide (MAG-OX) 400 mg (241.3 mg magnesium) tablet Take 400 mg by mouth twice daily. aspirin, enteric coated (ASPIRIN, ENTERIC COATED) 81 mg EC tablet Take 81 mg by mouth once daily. amLODIPine (NORVASC) 10 mg tablet Take 10 mg by mouth once daily. Bifidobacterium infantis (ALIGN ORAL) Take by mouth once daily. Lactobac no.41/Bifidobact no.7 (PROBIOTIC-10 ORAL) Take by mouth. sometimes atenolol (TENORMIN) 25 mg tablet Take 1 tablet by mouth once daily polyethylene glycol 3350 (MIRALAX, GLYCOLAX) 17 gram packet Take 1 Packet by mouth once daily as needed. levothyroxine (SYNTHROID) 100 mcg tablet Take 1 tablet by mouth once daily. glimepiride (AMARYL) 1 mg tablet 5 mg. 1 QAM 1/2 QPM fluticasone (FLONASE) 50 mcg/actuation nasal spray Use 1 [place] in each nostril as needed. in each nostril. albuterol HFA (PROAIR HFA) 90 mcg/Actuation INHALATION inhaler two puffs every 4-6 hours as needed No current facility-administered medications for this visit. Review of Systems Constitutional: Negative for activity change and fever. Respiratory: Positive for shortness of breath. Negative for apnea, cough, chest tightness, wheezingand stridor. Cardiovascular: Negative for chest pain, palpitations and leg swelling. Gastrointestinal: Negative for abdominal distention, diarrhea and vomiting. Musculoskeletal: Negative for joint swelling, neck pain and neck stiffness. Skin: Negative for color change, pallor and rash. Neurological: Negative for dizziness, syncope, weakness, light-headedness and numbness. Hematological: Does not bruise/bleed easily. Psychiatric/Behavioral: Negative for agitation, behavioral problems and confusion. The patient is not nervous/anxious. All other systems reviewed and are negative. PHYSICAL EXAMINATION: 11/16/21 1521 BP: 136/88 BP Site: Left Arm BP Position: Sitting BP Cuff Size: Large Adult Pulse: 65 Weight: 84 kg (185 lb 1.3 oz) Height: 158.8 cm (5' 2.5) Last 3 Encounter BP Readings: Date: BP: 05/11/2020 132/90 12/06/2016 110/80 08/24/2014 139/72 Last 3 Encounter Pulse Readings: Date: Pulse: 05/11/2020 68 12/06/2016 67 08/24/2014 78 Last 3 Encounter Wt Readings: Date: Wt: 11/14/2020 89.8 kg (198 lb) 05/11/2020 84.4 kg (186 lb) 12/06/2016 88.3 kg (194 lb 9.6 oz) Physical Exam Vitals and nursing note reviewed. Constitutional: General: She is not in acute distress. Appearance: Normal appearance. She is not toxic-appearing. HENT: Head: Normocephalic and atraumatic. Nose: Nose normal. Mouth/Throat: Mouth: Mucous membranes are moist. Neck: Vascular: No carotid bruit. Cardiovascular: Rate and Rhythm: Normal rate and regular rhythm. Pulses: Normal pulses. Heart sounds: Normal heart sounds. No murmur heard. No friction rub. No gallop. Pulmonary: Effort: Pulmonary effort is normal. No respiratory distress. Breath sounds: Normal breath sounds. No stridor. No wheezing, rhonchi or rales. Chest: Chest wall: No tenderness. Abdominal: General: Abdomen is flat. There is no distension. Palpations: Abdomen is soft. There is no mass. Tenderness: There is no abdominal tenderness. Musculoskeletal: General: No swelling. Cervical back: Normal range of motion. No muscular tenderness. Right lower leg: No edema. Left lower leg: No edema. Skin: Coloration: Skin is not jaundiced or pale. Findings: No bruising or rash. Neurological: General: No focal deficit present. Mental Status: She is alert and oriented to person, place, and time. Mental status is at baseline. Motor: No weakness. Gait: Gait normal. Psychiatric: Mood and Affect: Mood normal. Behavior: Behavior normal. Diagnostic results: EKG: Normal sinus rhythm, 65 bpm, cannot rule out inferio infarct, age undeterminedr ASSESSMENT/PLAN: 1. Benign hypertension - ICD9: 401.1, ICD10: I10 Target BP 130/80 or less. The pt is on chronic medications.Blood pressure reasonably well controlled. - ECG B/O W INTERP (MED OFFICE) 2. Orthostatic hypotension - ICD9: 458.0, ICD10: I95.1 Patient has history of orthostatic hypotension. She was instructed to continue to increase p.o. fluids and change positions slowly. She has not passed out since we saw her last. She is lightheaded and dizzy if she stays up more than half an hour at a time. This is an improvement from in the past when she could not get up at all. 3. Mixed hyperlipidemia - ICD9: 272.2, ICD10: E78.2 Patient is on Vascepa 1 g twice daily. The patient is statin intolerant to statins. Managed by primary care physician. 4. Palpitations - ICD9: 785.1, ICD10: R00.2 Patient has a history of palpitations. She is atenolol 25 mg daily. She is not on any antiarrhythmic medications. She is not complaining of palpitations at this time. Call with changes. 5. Sinus bradycardia - ICD9: 427.89, ICD10: R00.1 Chronic, asymptomatic sinus bradycardia. She is on atenolol 25 mg daily. Heart rate by today's EKG is 65 bpm. We will plan to continue same medications and monitor for bradycardia. Rell Nash APRN.ZANDER documented in this encounter[facility] History of Past illness Narrative* Problem Noted Date Resolved Date Postoperative bile leak 07/08/2014 05/10/20 20 Hypothyroidism 07/08/2014 07/08/2014 documented as of this encounter (statuses as of 11/16/2021) [facility] of Past illness Narrative* Problem Noted Date Diagnosed Date Resolved Date Postoperative bile leak 07/08/201404/30 Hypothyroidism 07/08/2014 07/08/2014 documented as of this encounter (statuses as of 01/08/2023) [facility] of Past illness Narrative* Problem Noted Date Diagnosed Date Resolved Date Postoperative bile leak 07/08/201404/30 Hypothyroidism 07/08/2014 07/08/2014 documented as of this encounter (statuses as of 01/09/2023) [address]09-2015 History of Past illness Narrative* Problem Noted Date Diagnosed Date Resolved Date Postoperative bile leak 07/08/201404/30 Hypothyroidism 07/08/2014 07/08/2014 documented as of this encounter (statuses as of 02/26/2023) [facility] of [facility] illness Narrative* Problem Noted Date Diagnosed Date Resolved Date Postoperative bile leak 07/08/201404/30 Hypothyroidism 07/08/2014 07/08/2014 documented as of this encounter (statuses as of 02/28/2023) [facility] of [facility] illness Narrative* Problem Noted Date Diagnosed Date Resolved Date Postoperative bile leak 07/08/201404/30 Hypothyroidism 07/08/2014 07/08/2014 documented as of this encounter (statuses as of 02/28/2023) [facility] of Past illness Narrative* Problem Noted Date Diagnosed Date Resolved Date Postoperative bile leak 07/08/201404/30 Hypothyroidism 07/08/2014 07/08/2014 documented as of this encounter (statuses as of 03/04/2023) [facility] of Past illness Narrative* Problem Noted Date Diagnosed Date Resolved Date Postoperative bile leak 07/08/201404/30 Hypothyroidism 07/08/2014 07/08/2014 documented as of this encounter (statuses as of 03/20/2023) [facility] [place] [facility]* Diagnosis Benign hypertension- Primary Essential hypertension, benign Orthostatic hypotension Mixed hyperlipidemia Palpitations Sinus bradycardia Other specified cardiac dysrhythmias documented [facility] this encounter [facility] [place] [facility]* Diagnosis PAF (paroxysmal atrial fibrillation) (HCC)- Primary Atrial fibrillation documented [facility] encounter [facility] [place] [facility]* Diagnosis History of cardiac monitoring- Primary Other specified personal history presenting hazards to health documented in this encounter [facility] [place] [facility]* Diagnosis New onset a-fib (HCC) Atrial fibrillation documented [facility] encounter [facility] [place] [facility]* Diagnosis Benign hypertension- Primary Essential hypertension, benign Mixed hyperlipidemia PAF (paroxysmal atrial fibrillation) (HCC) Atrial fibrillation [facility] current use of anticoagulant Long-term (current) use of anticoagulants Sinus bradycardia Other specified cardiac dysrhythmias DM II (diabetes mellitus, type II) (HCC) New onset a-fib (HCC) Atrial fibrillation documented in this encounter [facility] for referral (narrative)* Outpatient Procedure (Routine) - New Request Specialty Diagnoses / Procedures Referred By Contac t Referred To [facility] Diagnoses PAF (paroxysmal atrial fibrillation) (HCC) Procedures ECG COMPLETE ECG ROUTINE ECG W/LEAST 12 LDS W/I&R Rell Nash APRN.ZANDER [address] [facility] [address] [place] [address] [facility] [place] [address] [place] [address] Referral ID Status Reason Start Date Expiration Date Visits Requested Visits Authorized [id number] New Request Auto-Generat ed Referral 04/16/2025 1 1 [facility] for referral (narrative)No reason for referral information availableLarue D. [facility] Work Phone: Summary Purpose Family History Relationship Condition Age at Onset Recorded Date/T margarita father Cerebrovascular accident (CVA) Unknown mother Aortic aneurysm Unknown brother Hypertension Unknown sister Diabetes mellitus Unknown Advance Directives Documents on File Type Date Recorded Patient Speech Instructor Expl anation Advance Directive(s) 07/15/2014 3:07 PM Documents on File Type Date Recorded Patient Speech Instructor Expl anation Advance Directive(s) 07/15/2014 3:07 PM Chief Complaint and Reason for Visit Chief Complaint Admit Date 4 M FU September 08, 2024 1:3 5pm AFIB ([place]) December 22, 2024 2:18 pm Reason for Visit Admit Date Asthma September 08, 2024 1:3 5pm Chief Complaint Admit Date AFIB ([place]) December 22, 2024 2:18 pm PAROXYSMAL ATRIAL FIBRILLATION December 12:48pm DM, Hyperparathyroid, Osteopenia, Hypoth yroid January 27, 2025 2:19pm Reason for Visit Admit Date Essential (primary) hypertension December 222024 2:18pm Hypercholesterolemia December 22, 2024 2:1 8pm Paroxysmal atrial fibrillation November 2:18pm Diabetes mellitus January 27, 2025 2:19 pm Hyperparathyroidism January 27, 2025 2:19 pm Stage 3b chronic kidney disease December 2:19pm Additional Source Comments INFORMATION SOURCE (unrecogn ized section and content) DATE CREATED AUTHOR 05/07/2018 [facility] [place] DATE CREATED AUTHOR AUTHOR'S ORGANIZ ATION 06/08/2021 [facility] DATE CREATED AUTHOR AUTHOR'S ORGANIZ ATION 03/10/2024 [facility] DATE CREATED AUTHOR AUTHOR'S ORGANIZ ATION 04/27/2024 [facility] DATE CREATED AUTHOR AUTHOR'S ORGANIZ ATION 09/17/2024 [facility] DATE CREATED AUTHOR AUTHOR'S ORGANIZ ATION 09/25/2024 [facility] DATE CREATED AUTHOR AUTHOR'S ORGANIZ ATION 01/26/2025 [facility] Source Comments (unrecognize d section and content) In the event this informatio n is protected by the Federal Confidentiality of Alcohol and Drug Abuse Patient Records regulations: The Federal rules restrict any use of the information to criminally investigate or prosecute any alcohol or drug abuse patient.[facility] HospitalIn the event this information is protected by the Federal Confidentiality of Alcohol and Drug Abuse Patient Records regulations: The Federal rules restrict any use of the information to criminally investigate or prosecute any alcohol or drug abuse patient.[facility] HospitalIn the event this information is protected by the Federal Confidentiality of Alcohol and Drug Abuse Patient Records regulations: The Federal rules restrict any use of the information to criminally investigate or prosecute any alcohol or drug abuse patient.[facility] HospitalIn the event this information is protected by the Federal Confidentiality of Alcohol and Drug Abuse Patient Records regulations: The Federal rules restrict any use of the information to criminally investigate or prosecute any alcohol or drug abuse patient.[facility] HospitalIn the event this information is protected by the Federal Confidentiality of Alcohol and Drug Abuse Patient Records regulations: The Federal rules restrict any use of the information to criminally investigate or prosecute any alcohol or drug abuse patient.[facility] HospitalIn the event this information is protected by the Federal Confidentiality of Alcohol and Drug Abuse Patient Records regulations: The Federal rules restrict any use of the information to criminally investigate or prosecute any alcohol or drug abuse patient.[facility] HospitalIn the event this information is protected by the Federal Confidentiality of Alcohol and Drug Abuse Patient Records regulations: The Federal rules restrict any use of the information to criminally investigate or prosecute any alcohol or drug abuse patient.[facility] HospitalIn the event this information is protected by the Federal Confidentiality of Alcohol and Drug Abuse Patient Records regulations: The Federal rules restrict any use of the information to criminally investigate or prosecute any alcohol or drug abuse patient.[facility] HospitalIn the event this information is protected by the Federal Confidentiality of Alcohol and Drug Abuse Patient Records regulations: The Federal rules restrict any use of the information to criminally investigate or prosecute any alcohol or drug abuse patient.[facility] HospitalIn the event this information is protected by the Federal Confidentiality of Alcohol and Drug Abuse Patient Records regulations: The Federal rules restrict any use of the information to criminally investigate or prosecute any alcohol or drug abuse patient.[facility] HospitalIn the event this information is protected by the Federal Confidentiality of Alcohol and Drug Abuse Patient Records regulations: The Federal rules restrict any use of the information to criminally investigate or prosecute any alcohol or drug abuse patient.[facility] HospitalIn the event this information is protected by the Federal Confidentiality of Alcohol and Drug Abuse Patient Records regulations: The Federal rules restrict any use of the information to criminally investigate or prosecute any alcohol or drug abuse patient.[facility] Reason for Visit (unrecogniz ed section and content) Reason Comments Follow Up Reason Comments Results Reason Comments Radiology [place] Reason Comments Erroneous encounter-disregard Reason Comments Refill Request Reason Comments Follow Up Care Teams (unrecognized sec tion and content) Software Publisher Relationship Specialty Start Date End Date Gordo Cooper MD [address] [place] [address] PCP - General Internal Medicine 11/14/20 Software Publisher Relationship Specialty Start Date End Date Gordo Cooper MD [address] [place], [place] [id number] PCP - General Internal Medicine 11/14/20 Software Publisher Relationship Specialty Start Date End Date Gordo Cooper MD [address] [place], [place] [id number] PCP - General Internal Medicine 11/14/20 Software Publisher Relationship Specialty Start Date End Date Gordo Cooper MD [address] [place] [address] PCP - General Internal Medicine 11/14/20 Software Publisher Relationship Specialty Start Date End Date Gordo Cooper MD [address] [place] [address] PCP - General Internal Medicine 11/14/20 Software Publisher Relationship Specialty Start Date End Date Gordo Cooper MD [address] [place] [address] PCP - General Internal Medicine 11/14/20 Software Publisher Relationship Specialty Start Date End Date Gordo Cooper MD [address] [place] [address] PCP - General Internal Medicine 11/14/20 Software Publisher Relationship Specialty Start Date End Date Gordo Cooper MD [address] [place] [address] PCP - General Internal Medicine 11/14/20 Software Publisher Relationship Specialty Start Date End Date Gordo Cooper MD [address] [place] [address] PCP - General Internal Medicine 11/14/20 Team Status: Active Member Role Status Dates Dr. Gordo Cooper MD Family Provider Active Dr. Gordo Cooper MD Primary Care Provider Active Team Status: Inactive Member Role Status Dates Dr. Gordo Cooper MD Primary Care Provider Active Start: September 08, 2024 End: September 08, 2024 Dr. Gordo Cooper MD Referring Provider Active Start: September 08, 2024 End: September 08, 2024 PETE Thomas Attending Provider Active Start: September 08, 2024 End: September 08, 2024 Team Status: Inactive Member Role Status Dates Dr. Gordo Cooper MD Primary Care Provider Active Start: December 22, 2024 End: December 22, 2024 Dr. Gordo Cooper MD Referring Provider Active Start: December 22, 2024 End: December 22, 2024 Dr. Eliazar Fischer MD Attending Provider Active S tart: December 22, 2024 End: December 22, 2024 Team Status: Active Member Role/Relationship Status Dates Dr. Dann Yepez MD Primary Care Provider Active Team Status: Inactive Member Role/Relationship Status Dates Dr. Gordo Cooper MD Primary Care Provider Active Start: December 22, 2024 End: December 22, 2024 Dr. Gordo Cooper MD Referring Provider Active Start: December 22, 2024 End: December 22, 2024 Dr. Eliazar Fischer MD Attending Provider Active S tart: December 22, 2024 End: December 22, 2024 Team Status: Active Member Role/Relationship Status Dates Dr. Eliazar Fischer MD Attending Provider Active S tart: January 27, 2025 Dr. Eliazar Fischer MD Referring Provider Active S tart: January 27, 2025 Dr. Dann Yepez MD Primary Care Provider Active Start: January 27, 2025 Team Status: Inactive Member Role/Relationship Status Dates Dr. Gordo Cooper MD Referring Provider Active Start: January 27, 2025 End: January 27, 2025 Dr. Catrachito Reid MD Attending Provider Active Sta rt: January 27, 2025 End: January 27, 2025 Dr. Dann Yepez MD Primary Care Provider Active Start: January 27, 2025 End: January 27, 2025 Goals (unrecognized section and content) Goals may be documented in a n alternate sectionGoals may be documented in an alternate section FOR RECORDS PERTAINING TO PATIENTS WHO ARE OR HAVE BEEN ENROLLED IN A CHEMICAL DEPENDENCY/SUBSTANCEABUSE PROGRAM, SOME INFORMATION MAY BE OMITTED. This clinical summary was aggregated from multiple sources. Caution should be exercised in using it in the provision of clinical care. This summary normalizes information from multiple sources, and as a consequence, information in this document may materially change the coding, format and clinical context of patient data. In addition, data may be omitted in some cases. CLINICAL DECISIONS SHOULD BE BASED ON THE PRIMARY CLINICAL RECORDS. [facility]. provides no warranty or guarantee of the accuracy or completeness of information in this document.
== END | disposition home or self-care (01) ==
LOC: CVS 12:53
PROVIDERS: PCP Internal Medicine; Referring Provider Internal Medicine Cardiovascular Disease; Visit Provider Internal Medicine Cardiovascular Disease
DX: I48.0 Paroxysmal atrial fibrillation (principal)
CPT/HCPCS: 93306

== ENCOUNTER → 2025-03-25 | Outpatient (CLI) | payer MEDICARE, SELFPAY | END | disposition home or self-care (01) | PROVIDERS: PCP Internal Medicine; Referring Provider Nurse Practitioner Family; Visit Provider Nurse Practitioner Family | DX: J45.40 Moderate persistent asthma, uncomplicated (principal) | CPT/HCPCS: 94060; 94726; 94729 ==